=== PATIENT | female | born 1935 | race Caucasian/White ===

== ENCOUNTER → 2017-02-06 | Outpatient (REF) | payer MEDICARE ==
[~2017-02-06] MED LIST: ALBU17IN INH; AMLO10TA2 PO; AMLO5TAB2 PO; AMPI250C59 PO; ASPI1TAB PO; BREO1INH INH; CARV12.5 PO; DRIS50002 PO; FERR325T PO; LIPI20TA PO; LOSA100T PO; MELA5TAB14 PO; METH1CAP3 PO; MIRT45TA PO; OMEP40CA2 PO; PLAV75TA38 PO; SENO8.6T10 PO
[2017-02-06 13:01] LABS: ALBUMIN 4.3 GM/DL (3.2-5.2); ALBUMIN/GLOBULIN RATIO 1.59 (1.00-1.93); ALKALINE PHOSPHATASE 50 U/L (45-117); ALT/SGPT 22 U/L (12-78); ANION GAP 9 MEQ/L (8-16); AST/SGOT 17 U/L (15-37); BILIRUBIN,TOTAL 0.4 MG/DL (0.2-1.0); BLOOD UREA NITROGEN 20 MG/DL (7-18); CALCIUM LEVEL 10.1 MG/DL (8.8-10.2); CARBON DIOXIDE LEVEL 26 MEQ/L (21-32); CHLORIDE LEVEL 107 MEQ/L (98-107); CHOLESTEROL LEVEL 158 MG/DL (<200); CREATININE FOR GFR 0.93 MG/DL (0.55-1.02); GLOMERULAR FILTRATION RATE > 60.0 (>32); GLUCOSE, FASTING 84 MG/DL (83-110); MAGNESIUM LEVEL 1.9 MG/DL (1.8-2.4); POTASSIUM SERUM 3.8 MEQ/L (3.5-5.1); SODIUM LEVEL 142 MEQ/L (136-145); TRIGLYCERIDES LEVEL 147 MG/DL (<150)
[2017-02-06 13:05] LABS: MEAN CORPUSCULAR HEMOGLOBIN 33.6 pg (27.0-33.0); MEAN CORPUSCULAR VOLUME 102.1 fl (80.0-96.0); WHITE BLOOD COUNT 5.6 K/mm3 (4.0-10.0)
== END ==
LOC: M SFHCPLAZ 09:11
PROVIDERS: ATTEND Internal Medicine
DX: I10 Essential (primary) hypertension (principal); E78.00 Pure hypercholesterolemia, unspecified; Z86.2 Personal history of diseases of the blood and blood-forming organs and certain disorders involving the immune mechanism

== ENCOUNTER → 2017-06-17 | Outpatient (REF) | payer MEDICARE ==
[~2017-06-17] MED LIST changes: +FERR1TAB8 PO; -FERR325T PO; -LOSA100T PO; +LOSA100T8 PO; -MELA5TAB14 PO; +MELA5TAB17 PO; +PLAV1TAB2 PO; -PLAV75TA38 PO
[2017-06-17 14:06] LABS: MEAN CORPUSCULAR HEMOGLOBIN 32.8 pg (27.0-33.0); MEAN CORPUSCULAR HGB CONC 31.5 g/dl (32.0-36.5); MEAN CORPUSCULAR VOLUME 104.1 fl (80.0-96.0); RED CELL DISTRIBUTION WIDTH 12.4 % (11.5-14.5); WHITE BLOOD COUNT 5.5 10^3/uL (4.0-10.0)
[2017-06-17 14:23] LABS: VITAMIN B12 LEVEL 438 PG/ML
[2017-06-17 14:29] LABS: ALBUMIN 4.2 GM/DL (3.2-5.2); ALBUMIN/GLOBULIN RATIO 1.75 (1.00-1.93); ALKALINE PHOSPHATASE 51 U/L (45-117); ALT/SGPT 21 U/L (12-78); ANION GAP 9 MEQ/L (8-16); AST/SGOT 18 U/L (15-37); BILIRUBIN,TOTAL 0.5 MG/DL (0.2-1.0); BLOOD UREA NITROGEN 18 MG/DL (7-18); CALCIUM LEVEL 9.7 MG/DL (8.8-10.2); CARBON DIOXIDE LEVEL 28 MEQ/L (21-32); CHLORIDE LEVEL 106 MEQ/L (98-107); CREATININE FOR GFR 0.77 MG/DL (0.55-1.02); GLOMERULAR FILTRATION RATE > 60.0 (>32); GLUCOSE, FASTING 82 MG/DL (83-110); MAGNESIUM LEVEL 1.6 MG/DL (1.8-2.4); POTASSIUM SERUM 3.7 MEQ/L (3.5-5.1); SODIUM LEVEL 143 MEQ/L (136-145); TOTAL PROTEIN 6.6 GM/DL (6.4-8.2); URIC ACID 5.6 MG/DL (2.6-6.0)
== END ==
LOC: M SFHCPLAZ 09:08
PROVIDERS: ATTEND Internal Medicine
DX: I10 Essential (primary) hypertension (principal); E55.9 Vitamin D deficiency, unspecified; M10.9 Gout, unspecified; Z86.2 Personal history of diseases of the blood and blood-forming organs and certain disorders involving the immune mechanism

== ENCOUNTER → 2017-10-08 | Outpatient (REF) | payer MEDICARE ==
[2017-10-08 12:03] LABS: HEMATOCRIT 37.7 % (36.0-47.0); HEMOGLOBIN 12.2 g/dl (12.0-16.0); MEAN CORPUSCULAR HEMOGLOBIN 31.9 pg (27.0-33.0); MEAN CORPUSCULAR HGB CONC 32.4 g/dl (32.0-36.5); MEAN CORPUSCULAR VOLUME 98.7 fl (80.0-96.0); PLATELET COUNT, AUTOMATED 152 10^3/uL (150-450); RED BLOOD COUNT 3.82 10^6/uL (4.00-5.40); WHITE BLOOD COUNT 5.9 10^3/uL (4.0-10.0)
[2017-10-08 12:25] LABS: ALBUMIN 4.3 GM/DL (3.2-5.2); ALBUMIN/GLOBULIN RATIO 1.72 (1.00-1.93); ALKALINE PHOSPHATASE 61 U/L (45-117); ALT/SGPT 15 U/L (12-78); ANION GAP 8 MEQ/L (8-16); AST/SGOT 15 U/L (7-37); BILIRUBIN,TOTAL 0.6 MG/DL (0.2-1.0); BLOOD UREA NITROGEN 32 MG/DL (7-18); CALCIUM LEVEL 9.6 MG/DL (8.8-10.2); CARBON DIOXIDE LEVEL 29 MEQ/L (21-32); CHLORIDE LEVEL 107 MEQ/L (98-107); CREATININE FOR GFR 1.24 MG/DL (0.55-1.30); GLOMERULAR FILTRATION RATE 44.2 (>32); GLUCOSE, FASTING 85 MG/DL (70-100); MAGNESIUM LEVEL 1.9 MG/DL (1.8-2.4); POTASSIUM SERUM 3.4 MEQ/L (3.5-5.1); SODIUM LEVEL 144 MEQ/L (136-145); TOTAL PROTEIN 6.8 GM/DL (6.4-8.2)
== END ==
LOC: M SFHCPLAZ 07:27
DX: D75.89 Other specified diseases of blood and blood-forming organs (principal); Z86.2 Personal history of diseases of the blood and blood-forming organs and certain disorders involving the immune mechanism; I10 Essential (primary) hypertension
CPT/HCPCS: 83735

== ENCOUNTER → 2018-03-10 | Outpatient (REF) | payer MEDICARE ==
[2018-03-10 12:36] LABS: HEMATOCRIT 34.8 % (36.0-47.0); HEMOGLOBIN 11.4 g/dl (12.0-15.5); MEAN CORPUSCULAR HEMOGLOBIN 32.9 pg (27.0-33.0); MEAN CORPUSCULAR HGB CONC 32.8 g/dl (32.0-36.5); MEAN CORPUSCULAR VOLUME 100.3 fl (80.0-96.0); PLATELET COUNT, AUTOMATED 173 10^3/uL (150-450); RED BLOOD COUNT 3.47 10^6/uL (4.00-5.40); WHITE BLOOD COUNT 6.8 10^3/uL (4.0-10.0)
[2018-03-10 12:54] LABS: TOTAL 25(OH) VITAMIN D 48.9 NG/ML (30.0-100.0)
[2018-03-10 13:07] LABS: ALBUMIN 3.9 GM/DL (3.2-5.2); ALBUMIN/GLOBULIN RATIO 1.39 (1.00-1.93); ALKALINE PHOSPHATASE 51 U/L (45-117); ALT/SGPT 15 U/L (12-78); ANION GAP 8 MEQ/L (8-16); AST/SGOT 16 U/L (7-37); BILIRUBIN,TOTAL 0.5 MG/DL (0.2-1.0); BLOOD UREA NITROGEN 24 MG/DL (7-18); CALCIUM LEVEL 9.8 MG/DL (8.8-10.2); CARBON DIOXIDE LEVEL 31 MEQ/L (21-32); CHLORIDE LEVEL 106 MEQ/L (98-107); CHOLESTEROL LEVEL 182 MG/DL (<200); CHOLESTEROL RISK RATIO 4.232 (<5); CREATININE FOR GFR 0.93 MG/DL (0.55-1.30); GLOMERULAR FILTRATION RATE > 60.0 (>32); GLUCOSE, FASTING 86 MG/DL (70-100); HDL CHOLESTEROL 43 MG/DL (>40); LDL CHOLESTEROL 98.6 MG/DL (<100); NON-HDL-C 139 MG/DL; POTASSIUM SERUM 3.9 MEQ/L (3.5-5.1); SODIUM LEVEL 145 MEQ/L (136-145); TOTAL PROTEIN 6.7 GM/DL (6.4-8.2); TRIGLYCERIDES LEVEL 202 MG/DL (<150)
== END ==
LOC: M SFHCPLAZ 08:00
DX: I10 Essential (primary) hypertension (principal); Z86.2 Personal history of diseases of the blood and blood-forming organs and certain disorders involving the immune mechanism; E78.00 Pure hypercholesterolemia, unspecified; E55.9 Vitamin D deficiency, unspecified
CPT/HCPCS: 83735

== ENCOUNTER 2018-03-19 18:40 | Emergency (ER) | payer MEDICARE ==
[2018-03-19] MEDS: NS 500 ML IV ×2 (20:14→21:15)
[2018-03-19 20:22] LABS: BASO % 0.4 % (0.0-1.0); EOS # 0.1 10^3/uL (0.0-0.50); EOS % 0.8 % (0.0-3.0); HEMATOCRIT 34.9 % (36.0-47.0); HEMOGLOBIN 11.5 g/dl (12.0-15.5); IMMATURE GRANULOCYTE % 0.2 % (0-3.0); LYMPH # 1.1 10^3/uL (1.5-4.5); LYMPH % 13.3 % (24.0-44.0); MEAN CORPUSCULAR HEMOGLOBIN 32.4 pg (27.0-33.0); MEAN CORPUSCULAR VOLUME 98.3 fl (80.0-96.0); MONO # 0.5 10^3/uL (0.0-0.8); MONO % 6.4 % (0.0-5.0); NEUTROPHILS # 6.5 10^3/uL (1.8-7.7); NEUTROPHILS % 78.9 % (36.0-66.0); PLATELET COUNT, AUTOMATED 167 10^3/uL (150-450); RED BLOOD COUNT 3.55 10^6/uL (4.00-5.40); WHITE BLOOD COUNT 8.3 10^3/uL (4.0-10.0)
[2018-03-19 20:27] LABS: ANION GAP 10 MEQ/L (8-16); BLOOD UREA NITROGEN 40 MG/DL (7-18); CALCIUM LEVEL 10.3 MG/DL (8.8-10.2); CARBON DIOXIDE LEVEL 26 MEQ/L (21-32); CHLORIDE LEVEL 106 MEQ/L (98-107); CPK CREATINE PHOSPHOKINASE 86 U/L (26-192); CREATININE FOR GFR 1.61 MG/DL (0.55-1.30); GLOMERULAR FILTRATION RATE 32.7 (>32); GLUCOSE, FASTING 106 MG/DL (70-100); POTASSIUM SERUM 4.5 MEQ/L (3.5-5.1); SODIUM LEVEL 142 MEQ/L (136-145); TROPONIN I < 0.02 NG/ML (< 0.10)
[2018-03-19 20:28] LABS: MB/CK RELATIVE INDEX 1.16 (< OR =4)
[2018-03-19] MEDS: ACETAMINOPHEN 325 MG TAB PO (21:43)
== END 2018-03-19 22:17 | disposition home or self-care (01) ==
LOC: M ED 18:40
DX: S82.831A Other fracture of upper and lower end of right fibula, initial encounter for closed fracture (principal); S93.401A Sprain of unspecified ligament of right ankle, initial encounter; W19.XXXA Unspecified fall, initial encounter; Y92.9 Unspecified place or not applicable; Y93.9 Activity, unspecified; Y99.0 Civilian activity done for income or pay; E86.0 Dehydration; R94.31 Abnormal electrocardiogram [ECG] [EKG]; I10 Essential (primary) hypertension; K21.9 Gastro-esophageal reflux disease without esophagitis; Z79.82 Long term (current) use of aspirin; Z79.899 Other long term (current) drug therapy; Z88.8 Allergy status to other drugs, medicaments and biological substances; Z88.6 Allergy status to analgesic agent
CPT/HCPCS: 73610

== ENCOUNTER → 2018-09-10 | Outpatient (REF) | payer MEDICARE ==
[~2018-09-10] MED LIST changes: -AMLO10TA2 PO; +AMLO10TA5 PO; -AMLO5TAB2 PO; +AMLO5TAB6 PO; -DRIS50002 PO; +DRIS50003 PO; -MIRT45TA PO; +MIRT45TA4 PO
[2018-09-10 12:36] LABS: HEMATOCRIT 31.8 % (36.0-47.0); HEMOGLOBIN 10.3 g/dl (12.0-15.5); MEAN CORPUSCULAR HEMOGLOBIN 30.6 pg (27.0-33.0); MEAN CORPUSCULAR HGB CONC 32.4 g/dl (32.0-36.5); MEAN CORPUSCULAR VOLUME 94.4 fl (80.0-96.0); PLATELET COUNT, AUTOMATED 175 10^3/uL (150-450); RED BLOOD COUNT 3.37 10^6/uL (4.00-5.40)
[2018-09-10 12:45] LABS: ALBUMIN 3.6 GM/DL (3.2-5.2); BILIRUBIN,TOTAL 0.4 MG/DL (0.2-1.0); CALCIUM LEVEL 9.1 MG/DL (8.8-10.2); CREATININE FOR GFR 1.24 MG/DL (0.55-1.30); GLOMERULAR FILTRATION RATE 44.1 (>32); MAGNESIUM LEVEL 2.1 MG/DL (1.8-2.4); POTASSIUM SERUM 3.4 MEQ/L (3.5-5.1); TOTAL PROTEIN 6.2 GM/DL (6.4-8.2)
== END ==
LOC: M SFHCPLAZ 08:13
PROVIDERS: ATTEND Internal Medicine
DX: I10 Essential (primary) hypertension (principal); Z86.2 Personal history of diseases of the blood and blood-forming organs and certain disorders involving the immune mechanism

== ENCOUNTER → 2019-01-18 | Outpatient (REF) | payer MEDICARE ==
[~2019-01-18] MED LIST changes: -ASPI1TAB PO; +ASPI81TA26 PO
[2019-01-18 17:22] LABS: HEMOGLOBIN 11.2 g/dl (12.0-15.5); MEAN CORPUSCULAR HEMOGLOBIN 29.7 pg (27.0-33.0); MEAN CORPUSCULAR HGB CONC 31.1 g/dl (32.0-36.5); MEAN CORPUSCULAR VOLUME 95.5 fl (80.0-96.0); PLATELET COUNT, AUTOMATED 190 10^3/uL (150-450); RED BLOOD COUNT 3.77 10^6/uL (4.00-5.40); WHITE BLOOD COUNT 5.7 10^3/uL (4.0-10.0)
[2019-01-18 17:47] LABS: ALBUMIN 3.9 GM/DL (3.2-5.2); ALT/SGPT 13 U/L (12-78); BILIRUBIN,TOTAL 0.4 MG/DL (0.2-1.0); BLOOD UREA NITROGEN 24 MG/DL (7-18); CALCIUM LEVEL 9.5 MG/DL (8.8-10.2); CARBON DIOXIDE LEVEL 30 MEQ/L (21-32); CHLORIDE LEVEL 104 MEQ/L (98-107); CHOLESTEROL LEVEL 158 MG/DL (<200); CREATININE FOR GFR 0.83 MG/DL (0.55-1.30); GLOMERULAR FILTRATION RATE > 60.0 (>32); GLUCOSE, FASTING 88 MG/DL (70-100); HDL CHOLESTEROL 50 MG/DL (>40); LDL CHOLESTEROL 87 MG/DL (<100); MAGNESIUM LEVEL 1.9 MG/DL (1.8-2.4); NON-HDL-C 108 MG/DL; POTASSIUM SERUM 3.1 MEQ/L (3.5-5.1); SODIUM LEVEL 144 MEQ/L (136-145); TOTAL PROTEIN 6.7 GM/DL (6.4-8.2); TRIGLYCERIDES LEVEL 103 MG/DL (<150); URIC ACID 5.5 MG/DL (2.6-6.0)
== END ==
LOC: M SFHCPLAZ 15:47
PROVIDERS: ATTEND Internal Medicine
DX: I10 Essential (primary) hypertension (principal); Z86.2 Personal history of diseases of the blood and blood-forming organs and certain disorders involving the immune mechanism; E78.00 Pure hypercholesterolemia, unspecified; M10.9 Gout, unspecified
CPT/HCPCS: 36415; 80053; 80061; 83735; 84550; 85027; G0463

== ENCOUNTER → 2019-08-12 | Outpatient (REF) | payer MEDICARE ==
[~2019-08-12] MED LIST changes: -MELA5TAB17 PO; +MELA5TAB31 PO; -OMEP40CA2 PO; +OMEP40CA97 PO
[2019-08-12 12:21] LABS: HEMATOCRIT 32.1 % (36.0-47.0); HEMOGLOBIN 9.9 g/dl (12.0-15.5); MEAN CORPUSCULAR HEMOGLOBIN 28.9 pg (27.0-33.0); MEAN CORPUSCULAR HGB CONC 30.8 g/dl (32.0-36.5); MEAN CORPUSCULAR VOLUME 93.9 fl (80.0-96.0); PLATELET COUNT, AUTOMATED 206 10^3/uL (150-450); RED BLOOD COUNT 3.42 10^6/uL (4.00-5.40); WHITE BLOOD COUNT 4.6 10^3/uL (4.0-10.0)
[2019-08-12 12:48] LABS: ALBUMIN 3.6 GM/DL (3.2-5.2); ALT/SGPT 12 U/L (12-78); BILIRUBIN,TOTAL 0.5 MG/DL (0.2-1.0); BLOOD UREA NITROGEN 23 MG/DL (7-18); CALCIUM LEVEL 9.8 MG/DL (8.8-10.2); CARBON DIOXIDE LEVEL 27 MEQ/L (21-32); CHLORIDE LEVEL 107 MEQ/L (98-107); CREATININE FOR GFR 0.93 MG/DL (0.55-1.30); FOLATE 9.5 NG/ML; GLOMERULAR FILTRATION RATE > 60.0 (>32); GLUCOSE, FASTING 90 MG/DL (70-100); MAGNESIUM LEVEL 2.1 MG/DL (1.8-2.4); POTASSIUM SERUM 3.9 MEQ/L (3.5-5.1); SODIUM LEVEL 142 MEQ/L (136-145); TOTAL 25(OH) VITAMIN D 38.5 NG/ML (30.0-100.0); TOTAL PROTEIN 6.5 GM/DL (6.4-8.2); VITAMIN B12 LEVEL > 2000 PG/ML
== END ==
LOC: M SFHCPLAZ 08:31
PROVIDERS: ATTEND Internal Medicine
DX: Z86.2 Personal history of diseases of the blood and blood-forming organs and certain disorders involving the immune mechanism (principal); F09 Unspecified mental disorder due to known physiological condition; I10 Essential (primary) hypertension; E55.9 Vitamin D deficiency, unspecified; Z79.899 Other long term (current) drug therapy

== ENCOUNTER → 2019-11-18 | Outpatient (REF) | payer MEDICARE ==
[2019-11-18 17:04] LABS: HEMATOCRIT 33.3 % (36.0-47.0); HEMOGLOBIN 10.2 g/dl (12.0-15.5); MEAN CORPUSCULAR HEMOGLOBIN 29.2 pg (27.0-33.0); MEAN CORPUSCULAR HGB CONC 30.6 g/dl (32.0-36.5); MEAN CORPUSCULAR VOLUME 95.4 fl (80.0-96.0); PLATELET COUNT, AUTOMATED 205 10^3/uL (150-450); RED BLOOD COUNT 3.49 10^6/uL (4.00-5.40)
[2019-11-18 17:09] LABS: ALBUMIN 3.9 GM/DL (3.2-5.2); BILIRUBIN,TOTAL 0.5 MG/DL (0.2-1.0); CALCIUM LEVEL 9.7 MG/DL (8.8-10.2); CREATININE FOR GFR 0.96 MG/DL (0.55-1.30); GLOMERULAR FILTRATION RATE 59.1 (>32); POTASSIUM SERUM 4.1 MEQ/L (3.5-5.1); TOTAL PROTEIN 6.9 GM/DL (6.4-8.2)
== END ==
LOC: M SFHCPLAZ 13:15
PROVIDERS: ATTEND Internal Medicine
DX: Z86.2 Personal history of diseases of the blood and blood-forming organs and certain disorders involving the immune mechanism (principal); I10 Essential (primary) hypertension

== ENCOUNTER 2020-03-14 16:31 | Emergency (ER) | payer MEDICARE ==
[~2020-03-14] VITALS: Ht 157.5 cm; Wt 50.7 kg
--- NOTE | 2020-03-14 17:13 | REPVR ---
PROCEDURE INFORMATION: Exam: CT Maxillofacial Without Contrast Exam date and time: 03/14/2020 4:49 PM Age: 84 years old Clinical indication: Injury or trauma; Fall; Initial encounter; Blunt trauma (contusions or hematomas); Nose TECHNIQUE: Imaging protocol: Computed tomography images of the face without contrast. Radiation optimization: All CT scans at this facility use at least one of these dose optimization techniques: automated exposure control; mA and/or kV adjustment per patient size (includes targeted exams where dose is matched to clinical indication); or iterative reconstruction. COMPARISON: No relevant prior studies available. FINDINGS: Orbits: Orbits are normal. Globes are unremarkable. Bones/joints: The visualized cervical spine demonstrates moderate degenerative changes. Sinuses: Mild inflammatory changes in the ethmoid sinuses, left greater than right. Left maxillary sinus retention cyst. Nasal cavity: Emmy bullosa on the right. Deviated nasal septum to the left with the lateral nasal spur. Soft tissues: Left paranasal and left medial pre maxillary soft tissue swelling with left nasal fractures. IMPRESSION: 1. Left paranasal/pre maxillary soft tissue swelling and left nasal fractures. 2. Inflammatory changes left maxillary sinus and ethmoid sinuses. Electronically signed by: Kael Love On 03/14/2020 17:13:00 PM
--- NOTE | 2020-03-14 17:16 | REPVR ---
PROCEDURE INFORMATION: Exam: CT Head Without Contrast Exam date and time: 03/14/2020 4:45 PM Age: 84 years old Clinical indication: Pain; Headache; Additional info: Fall on blood thinners TECHNIQUE: Imaging protocol: Computed tomography of the head without contrast. Radiation optimization: All CT scans at this facility use at least one of these dose optimization techniques: automated exposure control; mA and/or kV adjustment per patient size (includes targeted exams where dose is matched to clinical indication); or iterative reconstruction. COMPARISON: CT Head without contrast 08/04/2016 6:49 AM FINDINGS: Brain: There is moderate age related parenchymal volume loss. 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 Ventricles: The degree of ventricular dilatation is normal for age and/or degree of atrophy present. Bones/joints: Left paranasal and pre maxillary swelling with nasal fractures. Sinuses: Inflammatory changes left maxillary sinus. Mastoid air cells: Visualized mastoid air cells are well aerated. Vasculature: Atherosclerotic calcifications are demonstrated in the intracranial carotid arteries and distal vertebral arteries bilaterally. Soft tissues: Unremarkable. IMPRESSION: 1. There is moderate age related parenchymal volume loss. 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 2. The degree of ventricular dilatation is normal for age and/or degree of atrophy present. 3. No acute intracranial abnormalities. Electronically signed by: Kael Love On 03/14/2020 17:16:09 PM
--- NOTE | 2020-03-14 17:22 | REPVR ---
PROCEDURE INFORMATION: Exam: CT Cervical Spine Without Contrast Exam date and time: 03/14/2020 4:49 PM Age: 84 years old Clinical indication: Injury or trauma; Fall; Initial encounter; Blunt trauma TECHNIQUE: Imaging protocol: Computed tomography images of the cervical spine without contrast. Radiation optimization: All CT scans at this facility use at least one of these dose optimization techniques: automated exposure control; mA and/or kV adjustment per patient size (includes targeted exams where dose is matched to clinical indication); or iterative reconstruction. COMPARISON: US Duplex,carotid (complete) 08/03/2016 12:04 PM FINDINGS: Vertebrae: Reversal of normal cervical lordosis which may be positional or indicate muscular spasm. Mild anterolisthesis of C2 on C3 and C7 on T1 likely related to chronic degenerative change although clinical correlation to exclude acute ligamentous injury suggested. Multilevel facet joint arthropathy demonstrated throughout the cervical spine. Discs/Spinal canal/Neural foramina: There are degenerative changes demonstrated in the atlantoaxial joint at C1-C2 with osteophytes and joint space narrowing. The transverse ligament is a hypertrophied. Disc space narrowing at C3-C4 through C6-C7 with intervertebral osteophytes. Severe foraminal stenosis on the right and moderate foraminal stenosis on the left at C3, bilateral severe foraminal stenosis at C4, severe foraminal stenosis on the left and moderate to severe foraminal stenosis on the right at C5, bilateral moderate foraminal stenosis at C6 secondary to uncinate joint hypertrophic changes. Disc osteophyte complexes demonstrated from C3-C4 through C6-C7 result in effacement of the ventral subarachnoid space to varying degrees most pronounced at C4-C5 with there is mild cord impingement. Small posterior disc protrusion at C2-C3 without cord impingement. Soft tissues: See "Discs/Spinal canal/Neural foramina" finding. Lungs: Lung apices are normal. IMPRESSION: 1. Reversal of normal cervical lordosis which may be positional or indicate muscular spasm. 2. Mild anterolisthesis of C2 on C3 and C7 on T1 likely related to chronic degenerative change although clinical correlation to exclude acute ligamentous injury suggested. 3. No fracture demonstrated. 4. Multilevel disc osteophyte complexes with mild cord impingement at C4-C5. 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 Electronically signed by: Kael Love On 03/14/2020 17:21:43 PM
[2020-03-14] MEDS ORDERED: LIDOCAINE 1% MDV 20ML VIAL SC ONE (18:00)
[2020-03-14] MEDS ORDERED: AUGMENTIN 875 MG TAB PO ONE (18:00)
[2020-03-14] MEDS ORDERED: AUGM875T28 PO (18:44)
[2020-03-14 19:07] VITALS: BP 158/91
--- NOTE | 2020-03-16 15:28 | ED PDOC ---
Post-Departure Follow-Up dr andre faxed formal report of ct cc spine for fu Edgar Michael MD Mar 16, 2020 15:28
== END 2020-03-14 19:26 | disposition home or self-care (01) ==
LOC: M ED 16:31
DX: S02.2XXA Fracture of nasal bones, initial encounter for closed fracture (principal); S01.21XA Laceration without foreign body of nose, initial encounter; W01.10XA Fall on same level from slipping, tripping and stumbling with subsequent striking against unspecified object, initial encounter; Y92.099 Unspecified place in other non-institutional residence as the place of occurrence of the external cause; Y93.9 Activity, unspecified; Y99.9 Unspecified external cause status; Z91.81 History of falling; R93.7 Abnormal findings on diagnostic imaging of other parts of musculoskeletal system; F32.9 Major depressive disorder, single episode, unspecified; I10 Essential (primary) hypertension; J45.909 Unspecified asthma, uncomplicated; R91.1 Solitary pulmonary nodule; Z95.5 Presence of coronary angioplasty implant and graft; I25.10 Atherosclerotic heart disease of native coronary artery without angina pectoris; K21.9 Gastro-esophageal reflux disease without esophagitis; Z79.82 Long term (current) use of aspirin; Z79.899 Other long term (current) drug therapy; Z88.1 Allergy status to other antibiotic agents; Z88.8 Allergy status to other drugs, medicaments and biological substances

== ENCOUNTER → 2020-04-20 | Outpatient (REF) | payer MEDICARE ==
[~2020-04-20] MED LIST changes: -AMLO10TA5 PO; +AMLO1TAB24 PO; +AMLO1TAB25 PO; -AMLO5TAB6 PO; +AUGM875T28 PO; -MELA5TAB31 PO; +MELA5TAB36 PO
[2020-06-07 09:25] LABS: ALBUMIN 3.8 GM/DL (3.2-5.2); ALT/SGPT 14 U/L (12-78); BILIRUBIN,TOTAL 0.5 MG/DL (0.2-1.0); BLOOD UREA NITROGEN 23 MG/DL (7-18); CALCIUM LEVEL 9.3 MG/DL (8.8-10.2); CARBON DIOXIDE LEVEL 32 MEQ/L (21-32); CHLORIDE LEVEL 108 MEQ/L (98-107); CREATININE FOR GFR 0.85 MG/DL (0.55-1.30); GLOMERULAR FILTRATION RATE > 60.0 (>32); GLUCOSE, FASTING 84 MG/DL (70-100); POTASSIUM SERUM 3.4 MEQ/L (3.5-5.1); SODIUM LEVEL 143 MEQ/L (136-145); TOTAL PROTEIN 6.4 GM/DL (6.4-8.2); VITAMIN B12 LEVEL 1277 PG/ML (247-911)
[2020-06-11 10:50] LABS: BASO % 0.6 % (0.0-1.0); EOS # 0.1 10^3/uL (0.0-0.5); EOS % 1.5 % (0.0-3.0); HEMOGLOBIN 11.3 g/dl (12.0-15.5); LYMPH # 1.2 10^3/uL (1.5-5.0); LYMPH % 18.3 % (24.0-44.0); MEAN CORPUSCULAR HEMOGLOBIN 30.2 pg (27.0-33.0); MEAN CORPUSCULAR HGB CONC 31.4 g/dl (32.0-36.5); MEAN CORPUSCULAR VOLUME 96.3 fl (80.0-96.0); MONO # 0.5 10^3/uL (0.0-0.8); NEUTROPHILS # 4.7 10^3/uL (1.5-8.5); NEUTROPHILS % 71.3 % (36.0-66.0); PLATELET COUNT, AUTOMATED 168 10^3/uL (150-450); RED BLOOD COUNT 3.74 10^6/uL (4.00-5.40); WHITE BLOOD COUNT 6.5 10^3/uL (4.0-10.0)
== END ==
LOC: M SFHCPLAZ 15:28
PROVIDERS: ATTEND Internal Medicine
DX: F09 Unspecified mental disorder due to known physiological condition (principal); E78.00 Pure hypercholesterolemia, unspecified; I10 Essential (primary) hypertension; R63.4 Abnormal weight loss
CPT/HCPCS: 36415; 80053; 82607; 83735; 84443; 85025; G0463

== ENCOUNTER → 2020-10-23 | Outpatient (REF) | payer MEDICARE ==
[2020-10-23 14:34] LABS: BASO % 0.8 % (0.0-1.0); EOS # 0.1 10^3/uL (0.0-0.5); EOS % 1.3 % (0.0-3.0); HEMATOCRIT 36.1 % (36.0-47.0); HEMOGLOBIN 11.2 g/dl (12.0-15.5); LYMPH # 0.9 10^3/uL (1.5-5.0); MEAN CORPUSCULAR HEMOGLOBIN 29.6 pg (27.0-33.0); MEAN CORPUSCULAR VOLUME 95.5 fl (80.0-96.0); MONO # 0.5 10^3/uL (0.0-0.8); NEUTROPHILS # 3.7 10^3/uL (1.5-8.5); NEUTROPHILS % 71.7 % (36.0-66.0); PLATELET COUNT, AUTOMATED 195 10^3/uL (150-450); RED BLOOD COUNT 3.78 10^6/uL (4.00-5.40); WHITE BLOOD COUNT 5.2 10^3/uL (4.0-10.0)
[2020-10-23 14:45] LABS: ALBUMIN 3.9 GM/DL (3.2-5.2); ALT/SGPT 14 U/L (12-78); BILIRUBIN,TOTAL 0.4 MG/DL (0.2-1.0); BLOOD UREA NITROGEN 24 MG/DL (7-18); CALCIUM LEVEL 9.7 MG/DL (8.8-10.2); CARBON DIOXIDE LEVEL 29 MEQ/L (21-32); CHLORIDE LEVEL 108 MEQ/L (98-107); CHOLESTEROL LEVEL 163 MG/DL (<200); CHOLESTEROL RISK RATIO 2.762 (<5); CREATININE FOR GFR 0.87 MG/DL (0.55-1.30); GLOMERULAR FILTRATION RATE > 60.0 (>32); GLUCOSE, FASTING 87 MG/DL (70-100); HDL CHOLESTEROL 59 MG/DL (>40); LDL CHOLESTEROL 85 MG/DL (<100); NON-HDL-C 104 MG/DL; POTASSIUM SERUM 4.2 MEQ/L (3.5-5.1); SODIUM LEVEL 143 MEQ/L (136-145); TOTAL PROTEIN 6.6 GM/DL (6.4-8.2); TRIGLYCERIDES LEVEL 95 MG/DL (<150)
== END ==
LOC: M PLALAB 10:14
PROVIDERS: ATTEND Internal Medicine
DX: E78.00 Pure hypercholesterolemia, unspecified (principal); I10 Essential (primary) hypertension; Z86.2 Personal history of diseases of the blood and blood-forming organs and certain disorders involving the immune mechanism

== ENCOUNTER → 2021-04-23 | Outpatient (CLI) | payer MEDICARE ==
[~2021-04-23] MED LIST changes: +OMEP40CA4 PO; -OMEP40CA97 PO
[2021-04-23 14:03] LABS: BASO % 0.6 % (0.0-1.0); EOS # 0.1 10^3/uL (0.0-0.5); EOS % 2.8 % (0.0-3.0); HEMATOCRIT 28.3 % (36.0-47.0); HEMOGLOBIN 8.4 g/dl (12.0-15.5); LYMPH # 0.9 10^3/uL (1.5-5.0); LYMPH % 20.3 % (24.0-44.0); MEAN CORPUSCULAR HEMOGLOBIN 27.2 pg (27.0-33.0); MEAN CORPUSCULAR HGB CONC 29.7 g/dl (32.0-36.5); MEAN CORPUSCULAR VOLUME 91.6 fl (80.0-96.0); MONO # 0.5 10^3/uL (0.0-0.8); MONO % 9.7 % (2.0-8.0); NEUTROPHILS # 3.1 10^3/uL (1.5-8.5); NEUTROPHILS % 66.4 % (36.0-66.0); PLATELET COUNT, AUTOMATED 224 10^3/uL (150-450); RED BLOOD COUNT 3.09 10^6/uL (4.00-5.40); WHITE BLOOD COUNT 4.6 10^3/uL (4.0-10.0)
[2021-04-23 14:37] LABS: ALBUMIN 3.7 GM/DL (3.2-5.2); ALT/SGPT 15 U/L (12-78); BILIRUBIN,TOTAL 0.4 MG/DL (0.2-1.0); BLOOD UREA NITROGEN 22 MG/DL (7-18); CARBON DIOXIDE LEVEL 30 MEQ/L (21-32); CHLORIDE LEVEL 108 MEQ/L (98-107); CREATININE FOR GFR 0.82 MG/DL (0.55-1.30); GLOMERULAR FILTRATION RATE > 60.0 (>32); GLUCOSE, FASTING 79 MG/DL (70-100); POTASSIUM SERUM 3.3 MEQ/L (3.5-5.1); SODIUM LEVEL 145 MEQ/L (136-145); TOTAL PROTEIN 6.2 GM/DL (6.4-8.2)
== END ==
LOC: M PLALAB 11:24
PROVIDERS: ATTEND Internal Medicine
DX: I10 Essential (primary) hypertension (principal); Z86.2 Personal history of diseases of the blood and blood-forming organs and certain disorders involving the immune mechanism

== ENCOUNTER 2021-08-12 17:42 | Inpatient (IN) | payer MEDICARE ==
[~2021-08-12] VITALS: Ht 152.4 cm; Wt 41.3 kg
--- OUTSIDE RECORDS SUMMARY | 2021-08-12 17:48 | CCD ---
Author Author [facility] Organization [facility] Address Unknown Phone Unavailable Care Team Providers Care Shoe Planner Name Role Phone Paresh Cervantes Unavailable PROBLEMS Type Condition ICD9-CM Code PQU22-MP Code Onset Dates Condition S tatus W/U Status Risk SNOMED Code Notes Problem Glaucoma H40.9 Active confirmed 69101489 On Travatan and Alphagan I believe(?). She had OS glaucoma surgery (?shunt) 02/09/2014. Problem Gout M10.9 Active confirmed 75960829 Uric acid level reasonably controlled without medication on diet alone, as of January 2019. She has not had a flare. Problem Allergic rhinitis J30.9 Active confirmed [id number] Problem Osteoporosis M81.0 Active confirmed 1115225 6 Osteoporosis, confirmed by bone density study in 2003. Last DEXA 2012 revealed osteopenia of the hips. 25 hydroxy Vitamin D level low in 11/13. Repeated on replacement and 47 in 03/2015, 77 in June 2017, 49 in March 2018, 39 in 08/2019. Bisphosphonate stopped in 2009, after more than 5 years of therapy. She does not fall and given her comorbidities I am reluctant to restart medication. Problem Lung nodule R91.1 Active confirmed 17648700 5 She had a chest x-ray to further evaluate her cough in May 2012 and she had a lung lesion on plain films. CT chest and PET scans in 2011 were not revealing and were followed by a internet architect. Apparently the lesion has resolved as of September 2012; had another CT of her chest in the ED in 02/2013. I do not think further testing is justified at this point. Problem Mitral regurgitation I34.0 Active confirmed 24224454 She had moderately severe MR by echocardiogram in 04/2013, and as part of her syncope workup in July 2016 another echocardiogram was done which revealed moderately severe mitral regurgitation, normal left ventricular function and no evidence of LVH, moderate to severe left atrial dilation, moderate pulmonary hypertension. Due to her dementia repeat echocardiography will not be pursued. Problem Vitamin D deficiency E55.9 Active confirmed 34722814 Discovered 11/13. Last Vitamin D level was 77 in June 2017, on replacement therapy. She was on Drisdol every other week but as of October 2017 I changed that to just once a month. Most recent vitamin D level was 49 in March 2018, 39 in 08/2019. Problem Asthma J45.909 Active confirmed 680627667 No prior benefit from a course of prednisone and Dulera. She did not find Symbicort to be helpful in Fall 2010. She was wheezing in 01/2013 and was started back on Dulera, but this did not seem to help her. Breo inhaler was started in 03/2014 with benefit, although she is currently not using it. Problem Encounter for other screening for malignant neoplasm o f breast Z12.39 Active confirmed 552961697 We have repeate dlmichael discussed referral for mammogram and she declined. Her last was in May 2013. Problem Other shelter (current) drug therapy Z79.899 A ctive confirmed 855993527 Problem Peripheral artery disease I73.9 Active confirmed 998578808 No significant claudication symptoms. No rest pain. TIA testing last done in August 2011, and she had ABIs of 0.98 bilaterally. She has had previous surgery in 2002. She is on just Plavix; her stopped aspirin. 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 Problem Carotid artery disease I77.9 Active confirmed 035805828 Carotid artery disease was identified on ultrasound 2005. Follow-up is due as needed for symptoms according to USPSTF guidelines. She had a previous identified 1-15% right ICA stenosis. Asymptomatic. As part of her syncope workup in July 2016, she inexplicably had another carotid ultrasound (carotid artery disease does not cause syncope) at which time no hemodynamically significant stenoses were evident. Problem History of iron deficiency anemia Z86.2 Active confirmed 159049639 She has a history of iron deficiency in the past. She was off iron for quite some time. She required a transfusion in March 20032007. She has had full endoscopies and has been off iron for some time. Her last endoscopy in July 2008 revealed erosive esophagitis and ulceration, and a colonoscopy with barium enema was negative. Her hemoglobin dropped in February 2016 and I restarted iron then. Her CBC in February 2017 demonstrated some macrocytosis and I started B12 therapy. A B12 level in June 2017 was over 400. I reduced her iron to every other day then. Her CBC revealed a drop in her hemoglobin to 9.9 as of August 2019, stabilized at 11.2 in October 2020 but dropped to 8.4 in April 2021 because she is not taking iron as directed, 3 times a week. I have restarted iron therapy daily as of April 2021. Problem Coronary artery disease I25.10 Active confirmed 62820667 Had a stent placed for AYON and an abnormal stress test, in 04/2013 (right coronary artery). Has residual AYON, but this was controlled on Breo but she apparently no longer needs/uses this. On Plavix, statin, beta samreen, ARB and calcium channel samreen. Her stopped aspirin in 2020 I believe. Last LVEF 63% at stress test in 02/2013. Problem Gastroesophageal reflux K21.9 Active confirmed 024187116 On Omeprazole. Patient has controlled heartburn. Her last endoscopy July 2008 demonstrated erosive esophagitis. As of October 2017 I reduced her omeprazole to once daily. Problem Osteoarthritis M19.90 Active confirmed 51461 5006 Diffuse osteoarthritis, on Tylenol in the past. She had been on Vicodin occasionally in the past but this has not been needed. She had NSAID esophagitis in the past. Has generally controlled arthralgias, except for a Green's cyst of her right knee which she apparently has addressed with her orthopedist. She has had viscosupplementation of both knees periodically starting in Spring 2010 with benefit, but does not need that at present. ESR, anti-CCP were negative. Problem Cognitive dysfunction F09 Active confirmed 267404620 This is gradually progressive; she has Alzheimer's disease. Serologic evaluation has not been revealing in the past but I did start a B12 supplement as of February 2017. Serologic testing in June 2017 was negative and TSH and B12 level were normal in April 2020. She has a history of some behavioral issues including wandering, anorexia, hallucinations. Although there is a warning about the use of atypical psychotics in the elderly with cognitive dysfunction, I think she does need an antipsychotic to control the hallucinations and she was started on low-dose Seroquel in July 2018; because her hallucinations persisted, her Seroquel was increased to 25 mg twice daily in September 2018 and 50 mg at bedtime as of 05/2019, but her has since stopped that medication due to ineffectiveness. Antidepressant therapy would be Effexor and mirtazapine have not been useful in improving her cognitive function. I in the past have suggested that she attend adult daycare blank driller her some respite and have so referred her as of May 2019. Cost was prohibitive. Trazodone at bedtime was added as of 11/2019; she now sleeps well through the night. I have asked for home health assistance due to the fact that she needs some supervision medically that her cannot provide and because he requires some respite from 31/03 care for her. Problem Fatigue R53.83 Active confirmed 37035597 An ongoing complaint. Likely depression is playing a significant role. This is an ongoing issue. Problem Hypercholesterolemia E78.00 Active confirmed 74988768 She is on Lipitor (changed from simvastatin by her zumba instructor in 2012) with control of her lipids as of October 2020. Problem Hypertension I10 Active confirmed 3071805 3 On losartan, Norvasc and apparently no longer on carvedilol; carvedilol has not appeared on her home medication lists since 2019. She stopped Bumex which she took occasionally in the past. Her hydrochlorothiazide was discontinued and her losartan dose was reduced to 50 mg daily in September 2018 because of overcontrolled hypertension. Problem Depression F32.9 Active confirmed 615468179 She is no longer on venlafaxine ER 150 mg daily nor is she on mirtazapine 45 mg at present. Megace did not help her appetite. Ritalin according to her did not provide her any benefit and has been discontinued for good as of August 2019. I added trazodone as of 11/2019 due to insomnia issues. TSH was normal in April 2020. I added Megace as an appetite stimulant due to weight loss April 2021. Problem Urinary incontinence R32 Active confirmed 510633818 Medication per Dr. Longoria had been fairly effective. However, I stopped that back in Fall 2011. She is off oxybutynin at present, probably prudently because of her dementia. She wears Depends and is chronically incontinent of both urine and stool. Problem Weight loss R63.4 Active confirmed 03136345 1 Megace was ineffective. She had been on Ritalin intermittently in the past and never provided any benefit. Her weight is gradually dropping. I have restarted Megace as of April 2021; I know of no other alternatives to stimulate her appetite. Problem History of syncope Z87.898 Active confirmed [id number] She had an episode of syncope in July 2016 with an extensive evaluation in hospital including a carotid ultrasound (?), Echocardiogram, CT of the head twice, laboratory evaluation. No etiology was found but her symptoms were attributed to an asymptomatic urinary tract infection. I am skeptical. Problem Macrocytosis without anemia D75.89 Active confirmed 834340009 Noted as of 02/2017. I added a B12 supplement; on replacement therapy her B12 level was over 2000 in August 2019. ALLERGIES Allergen (clinical drug ingredient) Drug/Non Drug Allergy do cumented on EMR Reaction Allergy Type Onset Date Status piroxicam Piroxicam(ND Code:[address]-55) pt unable to recall Drug Allergy Active celecoxib Celecoxib(ND Code:[address]-95) pt unable to recall Drug Allergy Active ENCOUNTERS from 1935 to 2021-05-15 Encounter Location Date Provider Diagnosis [place] [id number] [facility] [phone] [place] [address] Apr, Paresh Cervantes Cognitive dysfunction F09 ; Depression F32.9 ; Hypertension I10 ; Hypercholesterolemia E78.00 ; History of iron deficiency anemia Z86.2 ; Asthma J45.909 ; Gout M10.9 ; Osteoporosis M81.0 ; Gastroesophageal reflux K21.9 ; Urinary incontinence R32 ; Peripheral artery disease I73.9 ; Coronary artery disease I25.10 ; Glaucoma H40.9 ; Allergic rhinitis J30.9 ; Macrocytosis without anemia D75.89 ; Mitral regurgitation I34.0 and Weight loss R63.4 IMMUNIZATIONS Vaccine Route Administration Date Status Influenza 18 yrs & older Flublok IM Intramuscular Aug 13, 2019 Administered Influenza 18 yrs & older Flublok IM Intramuscular Aug 03, 2018 Administered Influenza (High Dose 65 & up) IM Intramuscular Jun 23, 2017 A dministered Influenza (High Dose 65 & up) IM Intramuscular Jun 25, 2016 A dministered Influenza (High Dose 65 & up) IM Intramuscular Jul 24, 2015 A dministered Pneumococcal Adult 0.5mL Pneumovax 23 Unknown Sep 03 04 Administered Pneumococcal 0.5mL Prevnar 13 IM Intramuscular Oct 20, 2015 A dministered TD Adult 0.5mL Tetanus Unknown November 19, 2005 Administe red Influenza 6mo & up Fluzone Unknown Jul 07, 2014 Admin istered SOCIAL HISTORY Tobacco Use: Social History Observation Description Date Details (start date - stop date) Never Smoker Sex Assigned At : Social History Observation Description Sex Assigned At Unknown Audit Question Answer Notes Total Score: 0 Interpretation: Alcohol Education Domestic Violence: Question Answer Notes Status: Sexual Hx: Question Answer Notes Had sex in the last 12 months (vaginal, oral, or anal)? No Have you ever had an STD? No Drug and Alcohol Question Answer Notes Total Score: 0 Interpretation: No problems reported Alcohol Screening: Question Answer Notes Did you have a drink containing alcohol in the past year? No Points 0 Interpretation Negative BMI Care Goal Follow-Up Question Answer Notes Above Normal BMI Follow-Up Dietary management educatio n, guidance, and counseling Tobacco Use: Question Answer Notes Are you a: never smoker REASON FOR REFERRAL from 1935 to 2021-05-15 Reason I have asked for home health assistance due to the fact that she needs some supervision medically that her cannot provide and because he requires some respite from 31/03 care for her. Diagnosis 1 Cognitive dysfunction (F09) Referral Organization [facility] Roland Referring Provider First Name Paresh Referring Provider Last Name Helen Referring Provider Specialty Family Medicine Referred Provider [facility] Referral Priority Routine General Notes Peter Barry 05/15/2021 1:4 5:02 PM > Sent VITAL SIGNS Weight 99 lbs Apr, Weight-kg 44.91 kg Apr, Height 60 in Apr, BMI 19.33 kg/m2 Apr, Heart Rate 76 /min Apr, Respiratory Rate 18 /min Apr, Temperature 97.9 degrees Fahrenheit Apr, Oximetry 99% Apr, Blood pressure systolic 108 mm Hg Apr, Blood pressure diastolic 62 mm Hg Apr, MEDICATIONS Medication SIG (Take, Route, Frequency, Duration) Notes Start Da te End Date Status Norvasc 5 MG 1 tablet Orally Once a day for 90 Active Plavix 75 mg 1 tablet Orally Once a day for 90 Active Senokot S 8.6-50 MG 1 tab(s) Orally twice a day for 90 Active Magnesium Oxide 400 MG 1 tablet as needed Orally Once a day Jun, Not-Taking Trazodone HCl 50 MG TAKE ONE TABLET BY MOUTH AT BEDTIME for 90 Active ProAir HFA 108 (90 Base) MCG/ACT 2 puffs Inhalation Ev vasile 4 hours as needed for cough, wheeze, SOB for 90 day(s) Active Ferrous Sulfate 325 (65 Fe) MG 1 tablet Orally Once a day for 90 day(s) Feb, Active Cyanocobalamin 1000 MCG 1 tablet Orally Once a day Feb, Active Omeprazole 40 mg 1 capsule Orally Daily for 90 Active Losartan Potassium 50 MG 1 tablet Orally Once a day for 90 Active Megestrol Acetate 625 MG/5ML 5 ml Orally Once a day for 30 d ay(s) I do want this filled despite the caution of coexistent treatment with Plavix and age over 65 Apr, Active Atorvastatin Calcium 20 MG TAKE ONE TABLET BY MOUTH EVERY DAY for 90 Active PROCEDURES No Information RESULTS No Results REASON FOR VISIT 6 months MEDICAL (GENERAL) HISTORY Type Description Date Medical History Hypertension Medical History Depression Medical History History of iron deficiency anemia Medical History Asthma Medical History Lung nodule Medical History Osteoarthritis Medical History Gout Medical History Osteoporosis Medical History Gastroesophageal reflux Medical History Urinary incontinence Medical History Peripheral artery disease Medical History Hypercholesterolemia Medical History Coronary artery disease Medical History Vitamin D deficiency Medical History Glaucoma Medical History Allergic rhinitis Medical History Carotid artery disease Medical History Mitral regurgitation Medical History Fatigue Medical History Encounter for other screening for malign ant neoplasm of breast Medical History Weight loss Medical History History of syncope Medical History Cognitive dysfunction Medical History Macrocytosis without anemia Surgical History appendectomy and cholecystectomy 1959's Surgical History LOREN with BSO for menometorrhagia 1983 Surgical History bilateral common iliac arter y and left external iliac vascular stent procedure 2002 Surgical History TVT 11/2006 Surgical History colonoscopy 07/2008 Surgical History cardiac catheterization with stent place ment 04/2013 Surgical History left cataract extraction and glaucoma encarnacion rgery 02/2014 Hospitalization History [facility], fell, multiple fra ctures. 03/2018 Goals Section No Information Health Concerns No Information MEDICAL EQUIPMENT No Information MENTAL STATUS No Information FUNCTIONAL STATUS No Information ASSESSMENTS Encounter Date Diagnosis Assessment Notes Treatment Notes Treatm ent Clinical Notes Apr, Cognitive dysfunction (ICD-10 - F09) Dasia s is gradually progressive; she has Alzheimer's disease. Serologic evaluation has not been revealing in the past but I did start a B12 supplement as of February 2017. Serologic testing in June 2017 was negative and TSH and B12 level were normal in April 2020. She has a history of some behavioral issues including wandering, anorexia, hallucinations. Although there is a warning about the use of atypical psychotics in the elderly with cognitive dysfunction, I think she does need an antipsychotic to control the hallucinations and she was started on low-dose Seroquel in July 2018; because her hallucinations persisted, her Seroquel was increased to 25 mg twice daily in September 2018 and 50 mg at bedtime as of 05/2019, but her has since stopped that medication due to ineffectiveness. Antidepressant therapy would be Effexor and mirtazapine have not been useful in improving her cognitive function. I in the past have suggested that she attend adult daycare blank driller her some respite and have so referred her as of May 2019. Cost was prohibitive. Trazodone at bedtime was added as of 11/2019; she now sleeps well through the night. I have asked for home health assistance due to the fact that she needs some supervision medically that her cannot provide and because he requires some respite from 24/7 care for her. Apr, Depression (ICD-10 - F32.9) She is no lo nger on venlafaxine ER 150 mg daily nor is she on mirtazapine 45 mg at present. Megace did not help her appetite. Ritalin according to her did not provide her any benefit and has been discontinued for good as of August 2019. I added trazodone as of 11/2019 due to insomnia issues. TSH was normal in April 2020. I added Megace as an appetite stimulant due to weight loss April 2021. Apr, Hypertension (ICD-10 - I10) On losartan, Norvasc and apparently no longer on carvedilol; carvedilol has not appeared on her home medication lists since 2019. She stopped Bumex which she took occasionally in the past. Her hydrochlorothiazide was discontinued and her losartan dose was reduced to 50 mg daily in September 2018 because of overcontrolled hypertension. Apr, Hypercholesterolemia (ICD-10 - E78.00) S he is on Lipitor (changed from simvastatin by her zumba instructor in 2012) with control of her lipids as of October 2020. Apr, History of iron deficiency anemia (ICD-1 0 - Z86.2) She has a history of iron deficiency in the past. She was off iron for quite some time. She required a transfusion in March [id number]. She has had full endoscopies and has been off iron for some time. Her last endoscopy in July 2008 revealed erosive esophagitis and ulceration, and a colonoscopy with barium enema was negative. Her hemoglobin dropped in February 2016 and I restarted iron then. Her CBC in February 2017 demonstrated some macrocytosis and I started B12 therapy. A B12 level in June 2017 was over 400. I reduced her iron to every other day then. Her CBC revealed a drop in her hemoglobin to 9.9 as of August 2019, stabilized at 11.2 in October 2020 but dropped to 8.4 in April 2021 because she is not taking iron as directed, 3 times a week. I have restarted iron therapy daily as of April 2021. Apr, Asthma (ICD-10 - J45.909) No prior benef it from a course of prednisone and Dulera. She did not find Symbicort to be helpful in Fall 2010. She was wheezing in 01/2013 and was started back on Dulera, but this did not seem to help her. Breo inhaler was started in 03/2014 with benefit, although she is currently not using it. Apr, Gout (ICD-10 - M10.9) Uric acid level re asonably controlled without medication on diet alone, as of January 2019. She has not had a flare. Apr, Osteoporosis (ICD-10 - M81.0) Osteoporos is, confirmed by bone density study in 2003. Last DEXA 2012 revealed osteopenia of the hips. 25 hydroxy Vitamin D level low in 11/13. Repeated on replacement and 47 in 03/2015, 77 in June 2017, 49 in March 2018, 39 in 08/2019. Bisphosphonate stopped in 2009, after more than 5 years of therapy. She does not fall and given her comorbidities I am reluctant to restart medication. Apr, Gastroesophageal reflux (ICD-10 - K21.9) On Omeprazole. Patient has controlled heartburn. Her last endoscopy July 2008 demonstrated erosive esophagitis. As of October 2017 I reduced her omeprazole to once daily. Apr, Urinary incontinence (ICD-10 - R32) Medi cation per Dr. Longoria had been fairly effective. However, I stopped that back in Fall 2011. She is off oxybutynin at present, probably prudently because of her dementia. She wears Depends and is chronically incontinent of both urine and stool. Apr, Peripheral artery disease (ICD-10 - I73. 9) No significant claudication symptoms. No rest pain. TIA testing last done in August 2011, and she had ABIs of 0.98 bilaterally. She has had previous surgery in 2002. She is on just Plavix; her stopped aspirin. Apr, Coronary artery disease (ICD-10 - I25.10 ) Had a stent placed for AYON and an abnormal stress test, in 04/2013 (right coronary artery). Has residual AYON, but this was controlled on Breo but she apparently no longer needs/uses this. On Plavix, statin, beta samreen, ARB and calcium channel samreen. Her stopped aspirin in 2020 I believe. Last LVEF 63% at stress test in 02/2013. Apr, Glaucoma (ICD-10 - H40.9) On Travatan an d Alphagan I believe(?). She had OS glaucoma surgery (?shunt) 02/09/2014. Apr, Allergic rhinitis (ICD-10 - J30.9) Apr, Macrocytosis without anemia (ICD-10 - D7 5.89) Noted as of 02/2017. I added a B12 supplement; on replacement therapy her B12 level was over 2000 in August 2019. Apr, Mitral regurgitation (ICD-10 - I34.0) Newton lewis had moderately severe MR by echocardiogram in 04/2013, and as part of her syncope workup in July 2016 another echocardiogram was done which revealed moderately severe mitral regurgitation, normal left ventricular function and no evidence of LVH, moderate to severe left atrial dilation, moderate pulmonary hypertension. Due to her dementia repeat echocardiography will not be pursued. Apr, Weight loss (ICD-10 - R63.4) Megace was ineffective. She had been on Ritalin intermittently in the past and never provided any benefit. Her weight is gradually dropping. I have restarted Megace as of April 2021; I know of no other alternatives to stimulate her appetite. PLAN OF TREATMENT Medication Medication Name Sig Start Date Stop Date Trazodone HCl 50 MG TAKE ONE TABLET BY MOUTH AT BEDTIME for 90 Megestrol Acetate 625 MG/5ML 5 ml Orally Once a day for 30 day(s ) Apr, Ferrous Sulfate 325 (65 Fe) MG 1 tablet Orally Once a day fo r 90 day(s) Feb, Atorvastatin Calcium 20 MG TAKE ONE TABLET BY MOUTH EVERY DAY fo r 90 Future Test Test Name Order Date TSH [id number] Comprehensive Metabolic Profile (CMP) [id number] MAGNESIUM LEVEL [id number] CBC with Differential [id number] Referrals Referral Date Details I have asked for home health assistance due to the fact that she needs some supervision medically that her cannot provide and because he requires some respite from 31/03 care for her., [facility] Appt Details 09/2021 Reason: Provider Name:Paresh Cervantes, 2021-10-01 11 :30:00 AM, [address] [facility], , [place], [address], Insurance Providers Payer Name Payer Address Payer Phone Insured Name Patient Relati onship to Insured Coverage Start Date Coverage End Date MEDICARE [facility] [address] [address] [facility] [id number] KEYA VILLEDA self
--- OUTSIDE RECORDS SUMMARY | 2021-08-12 17:48 | CCD ---
Author Author [facility] Organization [facility] Address Unknown Phone Unavailable Support Name Relationship Address Phone RETIRED Next Of Kin Unknown RE Next Of Kin Unknown Unavailable CHRISTIANAKIKI Next Of Kin [address] [place] [address] Noah VILLEDA ECON [address] [place] [address] Re-disclosure Warning The records that you are about to access may contain information from federally-assisted alcohol or drug abuse programs. If such information is present, then the following federally mandated warning applies: This information has been disclosed to you from records protected by federal confidentiality rules (42 CFR part 2). The federal rules prohibit you from making any further disclosure of this information unless further disclosure is expressly permitted by the written consent of the person to whom it pertains or as otherwise permitted by 42 CFR part 2. A general authorization for the release of medical or other information is NOT sufficient for this purpose. The Federal rules restrict any use of the information to criminally investigate or prosecute any alcohol or drug abuse patient.The records that you are about to access may contain highly sensitive health information, the redisclosure of which is protected by Article 27-F of the [facility] Public Health law. If you continue you may have access to information: Regarding HIV / AIDS; Provided by facilities licensed or operated by the [facility] Office of Mental Health; or Provided by the [facility] Office for People With Developmental Disabilities. If such information is present, then the following [facility] mandated warning applies: This information has been disclosed to you from confidential records which are protected by state law. State law prohibits you from making any further disclosure of this information without the specific written consent of the person to whom it pertains, or as otherwise permitted by law. Any unauthorized further disclosure in violation of state law may result in a fine or chcf sentence or both. A general authorization for the release of medical or other information is NOT sufficient authorization for further disc losure. Family History Family Member Name Family Member Gender Family Member Status Date o f Status Description Data Source(s) Unknown Male Problem MEDENT ([facility]) Encounters Encounter Providers Location Date Indications Data Source(s ) Office Visit, Est Pt., Level 4 PC [address] [place] [address] 04/25/2021 12:00:00 AM EDT eCW1 (Critical access hospital) Unknown [address] [facility], [facility] [address] 04/25/2021 12:00:00 AM EDT eCW1 ([facility]) Outpatient [address] [facility] [id number] 10/24/2020 12:00:00 AM EST eCW1 ([facility]) Unknown [address] [facility] [address] 09/12/2020 12:00:00 AM EST eCW1 ([facility]) Immunizations Vaccine Date Status Description Data Source(s) COVID-19 VACCINE [employer] 11/29/2020 12:00:00 AM EDT completed [facility] Vaccine Series Complete: YESThis Data wa s Submitted to [facility] Via [employer]. COVID-19 VACCINE [employer] 11/08/2020 12:00:00 AM EST completed [facility] Vaccine Series Complete: NOThis Data was Submitted to [facility] [employer]. Medications Medication Brand Name Start Date Product Form Dose Route Admi nistrative Instructions Pharmacy Instructions Status Indications Reaction Description Data Source(s) 240 mcg/0.7 mL 06/20/2021 12:00:00 AM EDT syringe 0 INJECT DIRECTED INJECT DIRECTED SOLD: 06/20/2021 [facility] atorvastatin 20 MG Oral Tablet ATORVASTATIN CALCIUM 05/11/2021 1 2:00:00 AM EDT tablet 90 TAKE ONE TABLET BY MOUTH EVERY D AY TAKE ONE TABLET BY MOUTH EVERY DAY SOLD: 05/16/2021 [facility] 50 mg 05/10/2021 12:00:00 AM EDT tablet 90 TAKE ONE TABLET BY MOUTH AT BEDTIME TAKE ONE TABLET BY MOUTH AT BEDTIME SOLD: 05/10/2021 [facility] 625 mg/5 mL (125 mg/mL) 04/26/2021 12:00:00 AM EDT suspensio n 150 TAKE 5ML BY MOUTH DAILY TAKE 5ML BY MOUTH DAILY SOLD: 04/26/2021 [facility] Megestrol Acetate 125 MG/ML Oral Suspension Megestrol Acetate 625 MG/5ML Megestrol Acetate 625 MG/5ML 04/25/2021 12:00:00 AM EDT 5.0 {ml} active Megestrol Acetate 625 MG/5ML eCW1 ([facility]) Megestrol Acetate 125 MG/ML Oral Suspension Megestrol Acetate 625 MG/5ML Megestrol Acetate 625 MG/5ML 04/25/2021 12:00:00 AM EDT 5.0 {ml} active Megestrol Acetate 625 MG/5ML eCW1 ([facility]) 75 mg 02/02/2021 12:00:00 AM EDT tablet 90 TAKE ONE TABLET BY MOUTH EVERY DAY TAKE ONE TABLET BY MOUTH EVERY DAY SOLD: 05/10/2021 [facility] 75 mg 02/02/2021 12:00:00 AM EDT tablet 90 TAKE ONE TABLET BY MOUTH EVERY DAY TAKE ONE TABLET BY MOUTH EVERY DAY SOLD: 02/06/2021 [facility] 40 mg 12/29/2020 12:00:00 AM EDT capsule,delayed release (DR/EC) 90 TAKE ONE CAPSULE BY MOUTH EVERY DAY TAKE ONE CAPSULE BY MOUTH EVERY DAY SOLD: 07/29/2021 [facility] 40 mg 12/29/2020 12:00:00 AM EDT capsule,delayed release (DR/EC) 90 TAKE ONE CAPSULE BY MOUTH EVERY DAY TAKE ONE CAPSULE BY MOUTH EVERY DAY SOLD: 04/25/2021 [facility] 40 mg 12/29/2020 12:00:00 AM EDT capsule,delayed release (DR/EC) 90 TAKE ONE CAPSULE BY MOUTH EVERY DAY TAKE ONE CAPSULE BY MOUTH EVERY DAY SOLD: 01/03/2021 [facility] 8.6-50 mg 12/05/2020 12:00:00 AM EDT tablet 180 TAKE ONE TABLET BY MOUTH TWICE A DAY TAKE ONE TABLET BY MOUTH TWICE A DAY SOLD: 06/22/2021 [facility] 5 mg 12/05/2020 12:00:00 AM EDT tablet 90 TAKE ONE TABLET BY MOUTH EVERY DAY TAKE ONE TABLET BY MOUTH EVERY DAY SOLD: 03/10/2021 [facility] 5 mg 12/05/2020 12:00:00 AM EDT tablet 90 TAKE ONE TABLET BY MOUTH EVERY DAY TAKE ONE TABLET BY MOUTH EVERY DAY SOLD: 06/22/2021 [facility] 8.6-50 mg 12/05/2020 12:00:00 AM EDT tablet 180 TAKE ONE TABLET BY MOUTH TWICE A DAY TAKE ONE TABLET BY MOUTH TWICE A DAY SOLD: 12/11/2020 [facility] 5 mg 12/05/2020 12:00:00 AM EDT tablet 90 TAKE ONE TABLET BY MOUTH EVERY DAY TAKE ONE TABLET BY MOUTH EVERY DAY SOLD: 12/11/2020 [facility] 50 mg 11/04/2020 12:00:00 AM EST tablet 90 TAKE ONE TABLET BY MOUTH EVERY DAY TAKE ONE TABLET BY MOUTH EVERY DAY SOLD: 07/29/2021 [facility] 50 mg 11/04/2020 12:00:00 AM EST tablet 90 TAKE ONE TABLET BY MOUTH EVERY DAY TAKE ONE TABLET BY MOUTH EVERY DAY SOLD: 02/13/2021 [facility] 50 mg 11/04/2020 12:00:00 AM EST tablet 90 TAKE ONE TABLET BY MOUTH EVERY DAY TAKE ONE TABLET BY MOUTH EVERY DAY SOLD: 11/12/2020 [facility] 50 mg 06/01/2020 12:00:00 AM EDT tablet 90 TAKE ONE TABLET BY MOUTH AT BEDTIME TAKE ONE TABLET BY MOUTH AT BEDTIME SOLD: 02/01/2021 [facility] 50 mg 06/01/2020 12:00:00 AM EDT tablet 90 TAKE ONE TABLET BY MOUTH AT BEDTIME TAKE ONE TABLET BY MOUTH AT BEDTIME SOLD: 11/12/2020 [facility] 50 mg 06/01/2020 12:00:00 AM EDT tablet 90 TAKE ONE TABLET BY MOUTH AT BEDTIME TAKE ONE TABLET BY MOUTH AT BEDTIME SOLD: 08/25/2020 [facility] atorvastatin 20 MG Oral Tablet ATORVASTATIN CALCIUM 02/10/2020 1 2:00:00 AM EDT tablet 90 TAKE ONE TABLET BY MOUTH EVERY D AY TAKE ONE TABLET BY MOUTH EVERY DAY SOLD: 06/21/2020 [facility] atorvastatin 20 MG Oral Tablet ATORVASTATIN CALCIUM 02/10/2020 1 2:00:00 AM EDT tablet 90 TAKE ONE TABLET BY MOUTH EVERY D AY TAKE ONE TABLET BY MOUTH EVERY DAY SOLD: 02/01/2021 [facility] atorvastatin 20 MG Oral Tablet ATORVASTATIN CALCIUM 02/10/2020 1 2:00:00 AM EDT tablet 90 TAKE ONE TABLET BY MOUTH EVERY D AY TAKE ONE TABLET BY MOUTH EVERY DAY SOLD: 10/09/2020 [facility] 75 mg 11/30/2019 12:00:00 AM EDT tablet 90 TAKE ONE TABLET BY MOUTH EVERY DAY TAKE ONE TABLET BY MOUTH EVERY DAY SOLD: 10/09/2020 [facility] 50 mg 11/27/2019 12:00:00 AM EDT tablet 90 TAKE ONE TABLET BY MOUTH EVERY DAY TAKE ONE TABLET BY MOUTH EVERY DAY SOLD: 06/21/2020 [facility] 50 mg 11/27/2019 12:00:00 AM EDT tablet 90 TAKE ONE TABLET BY MOUTH EVERY DAY TAKE ONE TABLET BY MOUTH EVERY DAY SOLD: 09/08/2020 [facility] 40 mg 10/19/2019 12:00:00 AM EST capsule,delayed release (DR/EC) 90 TAKE ONE CAPSULE BY MOUTH EVERY DAY TAKE ONE CAPSULE BY MOUTH EVERY DAY SOLD: 09/08/2020 [facility] 5 mg 10/06/2019 12:00:00 AM EST tablet 90 TAKE ONE TABLET BY MOUTH EVERY DAY TAKE ONE TABLET BY MOUTH EVERY DAY SOLD: 08/15/2020 [facility] Insurance Providers Payer name Policy type / Coverage type Policy ID Covered constitution party ID Covered constitution party's relationship to urias Policy Urias Plan Information [facility] 2 [id number] MEDICARE 4 [id number] A [facility] MEDICARE SOLUTIO 11 [id number] 1 [id number] [facility] MEDIC[facility] COMPLETE G [id number] Self [id number] [facility] MEDIC[facility] COMPLE[facility] G [id number] Self [id number] [facility] (Medicare) Commercial [id number] Self [id number] ANS-Medicare Part B [id number] ANS-Medicare Part B [id number] ANSI-Medicare Part B [id number] ANSI-Medicare Part B [id number] MEDICARE COMPLETE-[facility] O [id number] S [id number] SELF PAY 2 UNAVAILABLE 1 UNAVAILA BLE MEDICARE COMPLETE [id number] SP [id number] MEDICARE COMPLETE [id number] SP [id number] MEDICARE COMPLETE [id number] SP [id number] MEDICARE COMPLETE [id number] SP [id number] ANSI-Medicare Part B [id number] ANSI-Medicare Part B [id number] ANSI-Medicare Part B [id number] Problems, Conditions, and Diagnoses Code Display Name Description Problem Type Effective Dates Data Source(s) I73.89 Peripheral vascular disease Peripheral vascular diseas e Problem 03/06/2021 12:00:00 AM EDT [facility] ([facility] Surgeries/Procedures Procedure Description Date Indications Data Source(s) DEBRIDEMENT NAIL ANY METHOD 07/20/2021 12:00:00 AM EST [facility] ([facility] DEBRIDEMENT NAIL ANY METHOD 05/10/2021 12:00:00 AM EDT [facility] ([facility] DEBRIDEMENT NAIL ANY METHOD 03/01/2021 12:00:00 AM EDT [facility] ([facility] DEBRIDEMENT NAIL ANY METHOD 12/21/2020 12:00:00 AM EDT [facility] ([facility] DEBRIDEMENT NAIL ANY METHOD 10/09/2020 12:00:00 AM EST [facility] ([facility] DEBRIDEMENT NAIL ANY METHOD 06/14/2020 12:00:00 AM EDT [facility] ([facility] Results No Information Social History Code Duration Value Status Description Data Source(s ) Smoking 04/25/2021 12:00:00 AM EDT Never Smoker completed Never S moker eCW1 ([facility]) Smoking 04/25/2021 12:00:00 AM EDT Never Smoker completed Never S moker eCW1 ([facility]) Smoking 10/24/2020 12:00:00 AM EST Never Smoker completed Never S moker eCW1 ([facility]) Vital Signs ID Date Data Source UNK Name Value Range Interpretation Code Description Data Source(s) Body weight 99 [lb_av] 99 [lb_av] eCW[facility] ([facility] Body weight 44.91 kg 44.91 kg eCW1 ([facility]) Body height 60 [in_i] 60 [in_i] eCW1 ([facility]) Body mass index (BMI) [Ratio] 19.33 kg/m2 19.33 kg/m2 W1 ([facility]) Heart rate 76 /min 76 /min eCW1 ([facility]) Respiratory rate 18 /min 18 /min eCW1 ([facility]) Body temperature 97.9 [degF] 97.9 [degF] eCW1 ( [facility]) Systolic blood pressure 108 mm[Hg] 108 mm[Hg] e CW1 ([facility]) Diastolic blood pressure 62 mm[Hg] 62 mm[Hg] eCW1 ([facility]) Body weight 108.8 [lb_av] 108.8 [lb_av] eCW1 ([facility]) Body height 60 [in_i] 60 [in_i] eCW1 (Critical access hospital) Body mass index (BMI) [Ratio] 21.25 kg/m2 21.25 kg/m2 eCW1 ([facility]) Heart rate 81 /min 81 /min eCW1 ([facility]) Respiratory rate 18 /min 18 /min eCW1 ([facility]) Body temperature 98.5 [degF] 98.5 [degF] eCW1 ( [facility]) Systolic blood pressure 112 mm[Hg] 112 mm[Hg] e CW1 ([facility]) Diastolic blood pressure 66 mm[Hg] 66 mm[Hg] eCW1 ([facility]) Patient Treatment Plan of Care Planned Activity Planned Date Details Description Data Source (s) Megestrol Acetate 125 MG/ML Oral Suspension 04/25/2021 12:00:00 AM EDT eCW1 ([facility]) Megestrol Acetate 125 MG/ML Oral Suspension 04/25/2021 12:00:00 AM EDT eCW1 ([facility])
--- OUTSIDE RECORDS SUMMARY | 2021-08-12 17:48 | CCD | Continuity of Care Document ---
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 AUTM [phone] Problems Active Problems Provider Date Onychomycosis Toñito Hi DPM Onset: 04/09/2020 Ingrowing nail Toñito Hi DPM Onset: 04/09/2020 Pain in limb Toñito Hi DPM Onset: 04/09/2020 Peripheral vascular disease Toñito Hi DPM Onset: 02/07 Social History Type Date Description Comments Sex Unknown ETOH Use Denies alcohol use Tobacco Use Start: Unknown Patient has never smoked Allergies and adverse reactions Description No Known Drug Allergies Medications Active Medications SIG Qnty Indications Ordering Provide r Date Losartan Potassium 50mg Tablets Paresh Cervantes M.D. Trazodone HCL 50mg Tablets Take One Tablet By Mouth AT Bedtime Unknown Amoxicillin/Clavulanate Potassium 875-125mg Tablets Take One Tablet By Mouth Twice A Day Unkn own Omeprazole 40mg Capsules DR Helen Fierro,Paresh Atorvastatin Calcium 20mg Tablets Take One Tablet By Mouth Every Day Unknown Amlodipine Besylate 5mg Tablets Helen Fierro,Paresh Clopidogrel Bisulfate 75mg Tablets Helen Fierro,Paresh Stool Softener/Laxative 50-8.6mg T ablets Take One Tablet By Mouth Twice A Day Unknown Quetiapine Fumarate 25mg Tablets Take One Tablet By Mouth Twice A Day Unknown Carvedilol 12.5mg Tablets Take One Tablet By Mouth Twice A Day With Food Unknown 0 Immunizations Description No Information Available Vital Signs Date Vital Result Comment 04/05/2020 1:06pm Height 53 inches 4'5" Weight 117.00 lb BP Systolic 140 mmHg BP Diastolic 70 mmHg Heart Rate 63 /min BMI (Body Mass Index) 29.3 kg/m2 Results Description No Information Available Procedures Date Code Description Status 07/20/2021 11953 Debridement 6-10 Nails Electric Completed 05/10/2021 30739 Debridement 6-10 Nails Electric Completed 03/01/2021 56225 Debridement 6-10 Nails Electric Completed Medical Devices Description No Information Available Encounters Description No Information Available Assessments Date Code Description Provider 07/20/2021 B35.1 Tinea unguium Toñito Hi, DANIEL 07/20/2021 I73.89 Other specified peripheral vascu lar diseases Toñito Hi DPM 05/10/2021 B35.1 Tinea unguium Toñito Hi DPM 05/10/2021 I73.89 Other specified peripheral vascu lar diseases Toñito Hi DPM 03/01/2021 B35.1 Tinea malcolmuium Toñito Hi, DANIEL 03/01/2021 I73.89 Other specified peripheral vascu lar diseases Toñito Hi DPM Plan of Treatment Future Appointment(s):* 09/28/2021 10:00 am - To[facility]ito Hi DPM at [facility] Functional Status Description No Information Available Mental Status Description No Information Available Referrals Description No Information Available
--- OUTSIDE RECORDS SUMMARY | 2021-08-12 17:48 | CCD | Continuity of Care Document ---
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 Name Role Phone Paresh Cervantes M.D.M [phone] Problems Active Problems Provider Date Onychomycosis Toñito Hi DPM Onset: 04/09/2020 Ingrowing nail Toñito Hi DPM Onset: 04/09/2020 Pain in limb Toñito Hi DPM Onset: 04/09/2020 Peripheral vascular disease Toñito Hi DPM Onset: 02/07 Social History Type Date Description Comments Sex Unknown ETOH Use Denies alcohol use Tobacco Use Start: Unknown Patient has never smoked Allergies, Adverse Reactions, Alerts Description No Known Drug Allergies Medications Active [...] Tablet By Mouth Twice A Day Unknown /0 Carvedilol 12.5mg Tablets Take One Tablet By Mouth Twice A Day With Food Unknown 0 Immunizations Description No Information Available Vital Signs Date Vital Result Comment 04/05/2020 1:06pm Height 53 inches 4'5" Weight 117.00 lb BP Systolic 140 mmHg BP Diastolic 70 mmHg Heart Rate 63 /min BMI (Body Mass Index) 29.3 kg/m2 Results Description No Information Available Procedures Date Code Description Status 05/10/2021 95540 Debridement 6-10 Nails Electric Completed 03/01/2021 74826 Debridement 6-10 Nails Electric Completed 12/21/2020 69285 Debridement 6-10 Nails Electric Completed Medical Devices Description No Information Available Encounters Description No Information Available Assessments Date Code Description Provider 05/10/2021 B35.1 Tinea unguium Toñito Hi, DANIEL 05/10/2021 I73.89 Other specified peripheral vascu lar diseases Toñito Hi DPM 03/01/2021 B35.1 Tinea unguium Toñito Hi, DANIEL 03/01/2021 I73.89 Other specified peripheral vascu lar diseases Toñito Hi DPM 12/21/2020 B35.1 Tinea unguium Toñito Hi, DANIEL 12/21/2020 I73.89 Other specified peripheral vascu lar diseases Toñito Hi DPM Plan of Treatment Future Appointment(s):* 07/20/2021 9:00 am - Toñito Hi DPM at [facility] Functional Status Description No Information Available Mental Status Description No Information Available Referrals Description No Information Available
--- NOTE | 2021-08-12 18:54 | REP ---
INDICATION: trauma/fall. COMPARISON: None. TECHNIQUE: Two views of the right humerus were obtained. FINDINGS: There is a comminuted fracture of the right humerus proximally involving the surgical neck and greater tuberosity. The humeral head appears located. IMPRESSION: Comminuted fracture of the right humerus proximally as described. <Electronically signed by Kev Pizano > 08/12/21 [id number]
--- NOTE | 2021-08-12 18:58 | REP ---
INDICATION: trauma/fall. COMPARISON: PA and lateral chest, 11/07/2006. TECHNIQUE: AP portable chest image was obtained. FINDINGS: The lungs are clear. The heart is enlarged. There is a large hiatal hernia. There is calcific vascular disease of the thoracic aorta. There is a comminuted fracture of the right humerus proximally, more completely described in a separate report on the right humerus. IMPRESSION: No evidence of acute cardiopulmonary pathology. Right humeral fracture. Other findings as noted. <Electronically signed by Kev Pizano > 08/12/21 [id number]
--- NOTE | 2021-08-12 19:10 | REPVR ---
PROCEDURE INFORMATION: Exam: CT Head Without Contrast Exam date and time: 08/12/2021 6:13 PM Age: 85 years old Clinical indication: Injury or trauma; Fall; Blunt trauma (contusions or hematomas); Additional info: Fall injury TECHNIQUE: Imaging protocol: Computed tomography of the head without contrast. Radiation optimization: All CT scans at this facility use at least one of these dose optimization techniques: automated exposure control; mA and/or kV adjustment per patient size (includes targeted exams where dose is matched to clinical indication); or iterative reconstruction. COMPARISON: CT Head without contrast 03/14/2020 4:47 PM FINDINGS: Brain: There is glxh-jk-ysbljepm diffuse cerebellar atrophy. There is moderate age related parenchymal volume loss. White matter changes are demonstrated in the subcortical, centrum semiovale and periventricular white matter consistent with chronic age related small vessel ischemic changes. Cerebral ventricles: The degree of ventricular dilatation is normal for age and/or degree of atrophy present. Paranasal sinuses: Visualized sinuses are unremarkable. No fluid levels. Mastoid air cells: Visualized mastoid air cells are well aerated. Vasculature: Atherosclerotic calcifications are demonstrated in the intracranial carotid arteries bilaterally as well as in the vertebral basilar system. Bones/joints: Unremarkable. No acute fracture. Soft tissues: Unremarkable. IMPRESSION: 1. There is visj-uj-lsvlmsai diffuse cerebellar atrophy. 2. There is moderate age related parenchymal volume loss. White matter changes are demonstrated in the subcortical, centrum semiovale and periventricular white matter consistent with chronic age related small vessel ischemic changes. 3. The degree of ventricular dilatation is normal for age and/or degree of atrophy present. 4. No acute intracranial findings. Electronically signed by: Kael Love On 08/12/2021 19:10:01 PM
[2021-08-12 19:11] LABS: BASO % 0.7 % (0.0-1.0); EOS # 0.2 10^3/uL (0.0-0.5); EOS % 3.3 % (0.0-3.0); HEMATOCRIT 33.5 % (36.0-47.0); HEMOGLOBIN 9.4 g/dl (12.0-15.5); LYMPH # 0.8 10^3/uL (1.5-5.0); LYMPH % 13.7 % (24.0-44.0); MEAN CORPUSCULAR HEMOGLOBIN 29.4 pg (27.0-33.0); MEAN CORPUSCULAR HGB CONC 28.1 g/dl (32.0-36.5); MEAN CORPUSCULAR VOLUME 104.7 fl (80.0-96.0); MONO # 0.4 10^3/uL (0.0-0.8); MONO % 6.9 % (2.0-8.0); NEUTROPHILS # 4.6 10^3/uL (1.5-8.5); NEUTROPHILS % 75.1 % (36.0-66.0); PLATELET COUNT, AUTOMATED 249 10^3/uL (150-450); WHITE BLOOD COUNT 6.1 10^3/uL (4.0-10.0)
--- NOTE | 2021-08-12 19:14 | REPVR ---
PROCEDURE INFORMATION: Exam: CT Maxillofacial Without Contrast Exam date and time: 08/12/2021 6:13 PM Age: 85 years old Clinical indication: Injury or trauma; Fall; Blunt trauma (contusions or hematomas); Head/scalp; Loss of consciousness not known; Additional info: Fall injury TECHNIQUE: Imaging protocol: Computed tomography images of the face without contrast. Radiation optimization: All CT scans at this facility use at least one of these dose optimization techniques: automated exposure control; mA and/or kV adjustment per patient size (includes targeted exams where dose is matched to clinical indication); or iterative reconstruction. COMPARISON: CT Maxilofacial w/out contrast 03/14/2020 4:47 PM FINDINGS: Orbital cavity: Orbits are normal. Globes are unremarkable. Bones/joints: Age indeterminate left nasal fracture. Paranasal sinuses: Normal. No air-fluid levels. Soft tissues: Unremarkable. Nasal cavity: Right ivette bullosa on the right. Nasal septum deviated to the left with ipsilateral nasal spur. IMPRESSION: No acute findings. Electronically signed by: Kael Love On 08/12/2021 19:14:07 PM
--- NOTE | 2021-08-12 19:19 | REPVR ---
PROCEDURE INFORMATION: Exam: CT Cervical Spine Without Contrast Exam date and time: 08/12/2021 6:13 PM Age: 85 years old Clinical indication: Injury or trauma; Fall; Blunt trauma; Additional info: Fall injury TECHNIQUE: Imaging protocol: Computed tomography images of the cervical spine without contrast. Radiation optimization: All CT scans at this facility use at least one of these dose optimization techniques: automated exposure control; mA and/or kV adjustment per patient size (includes targeted exams where dose is matched to clinical indication); or iterative reconstruction. COMPARISON: CT Spine,cervical w/o contrast 03/14/2020 4:47 PM FINDINGS: Bones/joints: No acute fracture. Normal alignment. Discs/Spinal canal/Neural foramina: Degenerative changes redemonstrated in the Jaswant axial joint with osteophytes and joint space narrowing. Transverse ligament is hypertrophied. There is disc space narrowing demonstrated from C3-C4 to C6-C7 with intervertebral osteophytes. There is severe foraminal stenosis on the right and moderate foraminal stenosis on the left at C3, severe bilateral foraminal stenosis at C4, severe foraminal stenosis on the left and moderate to severe foraminal stenosis on the right at C5, bilateral moderate foraminal stenosis at C6, changes secondary to osteophytic encroachment. There are disc osteophyte complexes demonstrated from C3-C4 to C6-C7 resulting in varying degrees of effacement of the ventral subarachnoid space with moderate cord impingement at C4-C5. Lungs: Lung apices are normal. Soft tissues: See "Discs/Spinal canal/Neural foramina" finding. IMPRESSION: No acute findings. Electronically signed by: Kael Love On 08/12/2021 19:18:28 PM
[2021-08-12] MEDS ORDERED: LIDOCAINE W/EPINEPHRINE 1% 20ML VIAL As Ordered ONE (19:25)
[2021-08-12] MEDS ORDERED: LIDOCAINE W/EPINEPHRINE 1% 20ML VIAL SC ONE (19:25)
--- OUTSIDE RECORDS SUMMARY | 2021-08-12 19:26 | CCD ---
Author Author [facility] Organization [facility] Address Unknown Phone Unavailable Support Name Relationship Address Phone RETIRED Next Of Kin Unknown RE Next Of Kin Unknown Unavailable CHRISTIANAKIKI Next Of Kin [address] [place] [address] Noah VILLEDA ECON [address] [place] [address] Re-disclosure Warning The records that [...] is protected by Article 27-F of the [facility] Public Health law. If you continue you may have access to information: Regarding HIV / AIDS; Provided by facilities licensed or operated by the [facility] Office of Mental Health; or Provided by the [facility] Office for People With Developmental Disabilities. If such information is present, then the following [facility] mandated warning applies: This information has been [...] law may result in a fine or [place] [facility] [place] sentence or both. A general authorization for [...] Est Pt., Level 4 [address] [place] [address] 04/25/2021 12:00:00 AM EDT eCW1 ([facility]) Unknown [address] [facility], [facility] [address] 04/25/2021 12:00:00 AM EDT eCW1 ([facility]) Outpatient [address] [facility] [address] 10/24/2020 12:00:00 AM EST eCW1 ([facility]) Unknown [address] [facility] [address] 09/12/2020 12:00:00 AM EST eCW1 ([facility]) Immunizations Vaccine Date Status Description Data Source(s) COVID-19 VACCINE [facility] 11/29/2020 12:00:00 AM EDT completed [facility] Vaccine Series Complete: YESThis Data wa s Submitted to [facility] Via [employer]. COVID-19 VACCINE [facility] 11/08/2020 12:00:00 AM EST completed [facility] Vaccine Series Complete: NOThis Data was Submitted to [facility] Via [employer]. Medications Medication Brand Name Start Date Product [...] {ml} active Megestrol Acetate 625 MG/5ML eCW1 ([facility]) Megestrol Acetate 125 MG/ML Oral Suspension Megestrol Acetate 625 MG/5ML Megestrol Acetate 625 MG/5ML 04/25/2021 12:00:00 AM EDT 5.0 {ml} active Megestrol Acetate 625 MG/5ML eCW1 ([facility]) 75 mg 02/02/2021 12:00:00 AM EDT tablet [...] CAPSULE BY MOUTH EVERY DAY SOLD: 09/08/2020 [facility] 5 mg 10/06/2019 12:00:00 AM EST tablet 90 TAKE ONE TABLET BY MOUTH EVERY DAY TAKE ONE TABLET BY MOUTH EVERY DAY SOLD: 08/15/2020 [facility] Insurance Providers Payer name Policy type / Coverage type Policy ID Covered green party ID Covered green party's relationship to urias Policy Urias Plan Information [facility] 2 [id number] 1 [id number] MEDICARE [id number] [id number] [facility] MEDICARE SOLUTIO 11 [id number] 1 [id number] [facility] MEDICARE COMPLETE G [id number] Self [id number] [facility] MEDICARE COMPLETE G [id number] Self [id number] [facility] (Medicare) Commercial [id number] Self [id number] ANS-Medicare Part B [id number] ANS-Medicare Part B [id number] ANSI-Medicare Part B [id number] ANSI-Medicare Part B [id number] MEDICARE COMPLETE-[facility] O [id number] S [id number] SELF PAY 2 UNAVAILABLE 1 UNAVAILA BLE MEDICARE COMPLETE [id number] SP [id number] MEDICARE COMPLETE [id number] SP [id number] MEDICARE COMPLETE [id number] SP [id number] MEDICARE COMPLETE [id number] SP [id number] ANSI-Medicare Part B [id number] ANSI-Medicare Part B [id number] ANSI-Medicare Part B [id number] Problems, Conditions, and Diagnoses Code Display Name [...] Never Smoker completed Never S moker eCW1 ([facility]) Smoking 04/25/2021 12:00:00 AM EDT Never Smoker completed Never S moker eCW1 ([facility]) Smoking 10/24/2020 12:00:00 AM EST Never Smoker completed Never S moker eCW1 ([facility]) Vital Signs ID Date Data Source UNK Name Value Range Interpretation Code Description Data Source(s) Body weight 99 [lb_av] 99 [lb_av] eCW1 ([facility]) Body weight 44.91 kg 44.91 kg eCW1 ([facility]) Body height 60 [in_i] 60 [in_i] eCW1 ([facility]) Body mass index (BMI) [Ratio] 19.33 kg/m2 19.33 kg/m2 W1 ([facility]) Heart rate 76 /min 76 /min eCW1 ([facility]) Respiratory rate 18 /min 18 /min eCW1 ([facility]) Body temperature 97.9 [degF] 97.9 [degF] eCW1 ( [facility]) Systolic blood pressure 108 mm[Hg] 108 mm[Hg] e CW1 ([facility]) Diastolic blood pressure 62 mm[Hg] 62 mm[Hg] eCW1 ([facility]) Body weight 108.8 [lb_av] 108.8 [lb_av] eCW1 ([facility]) Body height 60 [in_i] 60 [in_i] eCW1 ([facility]) Body mass index (BMI) [Ratio] 21.25 kg/m2 21.25 kg/m2 eCW1 ([facility]) Heart rate 81 /min 81 /min eCW1 ([facility]) Respiratory rate 18 /min 18 /min eCW1 ([facility]) Body temperature 98.5 [degF] 98.5 [degF] eCW1 ( [facility]) Systolic blood pressure 112 mm[Hg] 112 mm[Hg] e CW1 ([facility]) Diastolic blood pressure 66 mm[Hg] 66 mm[Hg] eCW1 ([facility]) Patient Treatment Plan of Care Planned Activity Planned Date Details Description Data Source (s) Megestrol Acetate 125 MG/ML Oral Suspension 04/25/2021 12:00:00 AM EDT eCW1 ([facility]) Megestrol Acetate 125 MG/ML Oral Suspension 04/25/2021 12:00:00 AM EDT eCW1 ([facility])
[2021-08-12] MEDS ORDERED: DERMABOND TOPICAL SKIN ADHESIVE TOP ONE (19:45)
[2021-08-12 19:53] LABS: ALBUMIN 2.8 GM/DL (3.2-5.2); ALT/SGPT 25 U/L (12-78); BILIRUBIN,DIRECT < 0.1 MG/DL (0.0-0.2); BILIRUBIN,TOTAL 0.3 MG/DL (0.2-1.0); BLOOD UREA NITROGEN 68 MG/DL (7-18); CALCIUM LEVEL 9.3 MG/DL (8.8-10.2); CARBON DIOXIDE LEVEL 24 MEQ/L (21-32); CHLORIDE LEVEL 146 MEQ/L (98-107); CREATININE FOR GFR 1.71 MG/DL (0.55-1.30); GLOMERULAR FILTRATION RATE 30.3 (>32); GLUCOSE, FASTING 84 MG/DL (70-100); LIPASE 242 U/L (73-393); NT-PRO BNP 1294 PG/ML (<450); SODIUM LEVEL 175 MEQ/L (136-145); TOTAL PROTEIN 6.1 GM/DL (6.4-8.2)
[2021-08-12] MEDS ORDERED: NS 1,000 ML IV ONE (20:10)
[2021-08-12 20:12] LABS: RSV AMPLIFICATION NEGATIVE (NEGATIVE)
--- NOTE | 2021-08-12 22:19 | REPVR ---
PROCEDURE INFORMATION: Exam: CT Right Upper Extremity Without Contrast, Shoulder Exam date and time: 08/12/2021 9:48 PM Age: 85 years old Clinical indication: Injury or trauma; Fall; Blunt trauma (contusions or hematomas); Shoulder; Right; Additional info: Further evaluate right shoulder fracture TECHNIQUE: Imaging protocol: CT of the Right upper extremity without contrast was performed. Exam focused on the shoulder. Radiation optimization: All CT scans at this facility use at least one of these dose optimization techniques: automated exposure control; mA and/or kV adjustment per patient size (includes targeted exams where dose is matched to clinical indication); or iterative reconstruction. COMPARISON: CR [facility] 08/12/2021 6:12 PM FINDINGS: Bones/joints: Comminuted displaced fracture of the humeral neck with anterior displacement of the shaft relative to the humeral head. Osteoporosis. Soft tissues: Hyperdensity demonstrated in the surrounding soft tissues consistent with acute hemorrhage associated with edema. Glenohumeral joint effusion. Fluid also demonstrated in the subacromial subdeltoid bursa. IMPRESSION: 1. Comminuted displaced fracture of the humeral neck with anterior displacement of the shaft relative to the humeral head. 2. Hyperdensity demonstrated in the surrounding soft tissues consistent with acute hemorrhage associated with edema. Glenohumeral joint effusion. Fluid also demonstrated in the subacromial subdeltoid bursa. Electronically signed by: Kael Love On 08/12/2021 22:18:43 PM
[2021-08-12] MEDS ORDERED: ALBU8.5H INH (22:24)
[2021-08-12] MEDS ORDERED: TRAZ-252 PO (22:24)
[2021-08-12] MEDS ORDERED: LOSA50TA88 PO (22:24)
[2021-08-12] MEDS ORDERED: HOME MED LIST COMPLETE! XX SCH (22:25)
--- NOTE | 2021-08-12 23:26 | HPEPDOC ---
[facility] Medical History & Physical Date of Admission Aug 12, 2021 Date of Service: Aug 12, 2021 History and Physical CHIEF COMPLAINT: Fall at home HISTORY OF PRESENT ILLNESS: 85-year-old female seen at the emergency department brought in by her because she sustained a fall at home falling onto her face sustaining a laceration which was addressed by the emergency department. Imaging reveals that she has a Comminuted fracture of the right humerus proximally which will be evaluated by orthopedic surgeon Dr. Dunn who request a CT shoulder. believe she sustained a fall onto her right shoulder likely broke it approximately one week ago. endorses that his has been progressively getting worse over the past 1 month she has baseline dementia but up until one month ago she was able to slowly walk around without assistive devices and she was able to converse he endorses that approximately one week ago she stopped talking became nonverbal and lost her ability to mobilize. Her tells me he didn't try to take her to the hospital or have her evaluated by a medical professional as he felt she will recover on her own. He tells me that over the past several weeks he's been carrying her around the house feeding her himself and providing 24 hour supervision. Despite this he feels she is progressively getting weaker and hasn't been eating or drinking much for the past several weeks. I am unable to obtain any history from the patient as she is nonverbal. Sodium was 175 in the emergency department she received 1 L bolus normal saline. Repeat BMP did not show improvement in fact sodium slightly worsened 176. I discussed the case with Dr. Zaragoza nephrology to assist with fluid management will proceed to transition her to maintenance fluids at 1/2NS and repeat BMPs every 4 hours. Patient will be admitted to medical service further medical management. I asked the ED to place a Castaneda and obtain a UA. PAST MEDICAL/SURGICAL HISTORY: endorses a history of hypertension and dementia states she otherwise has no other medical conditions Medicine reconciliation so she likely has other medical problems including hyperlipidemia,GERD, unclear why she's on plavix. denies she has a history of CAD or stroke. indicates she's had an elbow surgery otherwise denies any other surgeries SOCIAL HISTORY: Unable to obtain review of systems from the patient given her mentation Per she does not drink alcohol or smoke tobacco. FAMILY HISTORY: Unable to obtain review of systems from the patient given her mentation ALLERGIES: Please see below. REVIEW OF SYSTEMS: Unable to obtain review of systems from the patient given her mentation HOME MEDICATIONS: Please see below. PHYSICAL EXAMINATION: Constitutional: Awake, in no apparent distress, stares off at a distance doesn't make eye contact, doesn't follow commands. None verbal. Mutters intangible word s. Appears sarcopenic, elderly, frail, weak, cachexic appearance. ENT: Sclera are clear. Mucosa is dry. Respiratory: Lungs CTA bilaterally. No respiratory distress. No use of accessory muscles. Saturating at 94% on room air. Cardiovascular: Regular rate and rhythm. Rate of 72 on monitor. Gastrointestinal: Abdomen is soft, non distended, non tender, BS present. Musculoskeletal: mild dependent lower extremity edema. Right shoulder in sling exam deferred to ortho. Neurologic: Unable to assess Skin: laceration around her left eye LABORATORY DATA: See below. IMAGING: See chart MICROBIOLOGY: Please see below. ASSESSMENT/PLAN # Hypernatremia: 175 on admit. S/p 1L NS in the ED. Discussed nephrology Dr Zaragoza to assist with management. Recommended 1/2NS @80 ordered 2L and then AM team to re-evaluate fluid type/rate needs and repeat BMPs q4h. Fu urine lytes. Castaneda catheter for critical monitoring. # AUNG: Cr 1.71 GFR 30. Likely prerenal secondary to dehydration. Fu FeNa. IVFs 1/2NS. Trend BMP. Avoid nephrotoxins. Appreciate nephro recs. Ordered UA, start Abx if UA is positive. # Fracture of right proximal humerus: Per ortho. Evaluated by Dr dunn in the ED. Should be operated on within ~1-2 weeks. Medical optimization first and then decision for surgery. Can be seen inpatient or follow up in ortho clinic. Request CT shoulder to be able to offer available options. Sling in place. # Multiple falls: Multifactorial due to advanced aged debility cachexia weakn ess dehydration. PT/OT eval. # Cachexia and debility: Nutrition consult. PT/OT eval. Ensure. 1:1 feeding. BMI 12.6. Bowel regiment. # HTN: BP acceptable at this time for her age. Hold anti-hypertensive losartan and amlodipine for now and resume as needed. # Anemia: hgb 9.4 on admit. Fu TIBC, ferritin, Monitor CBC. # DVT prophylaxis: Heparin # From home medication list; unclear why she's on plavix. Will resume for now but will ask AM team to obtain records from PCP Dr Cervantes to find out her full medical history. Also appears like she has HLD, will continue Lipitor. Also likely GERD, will resume omeprazole. Trazodone will be held as it can worsen her mentation. Her prognosis is guarded given her advanced age in addition to her severe dehydrated with a critically high sodium, she is cachexic and a BMI of only 12. Detailed CODE STATUS discussion had with he indicates that his would've wanted to be DNR/DNI. MOLST form completed in chart. A [facility] Hospital[facility] Vital Signs Vital Signs Date Time Temp Pulse Resp B/P (MAP) Pulse Ox O2 Delivery O2 Flow Rate FiO2 08/12/21 18:14 97.9 75 16 148/65 (92) 99 Room Air Laboratory Data Labs 24H Laboratory Tests 2 08/12/21 18:35: Immature Granulocyte % (Auto) 0.3, Neutrophils (%) (Auto) 75.1H, Lymphocytes (%) (Auto) 13.7L, Monocytes (%) (Auto) 6.9, Eosinophils (%) (Auto) 3.3H, Basophils (%) (Auto) 0.7, Neutrophils # (Auto) 4.6, Lymphocytes # (Auto) 0.8L, Monocytes # (Auto) 0.4, Eosinophils # (Auto) 0.2, Basophils # (Auto) 0.0, Nucleated Red Blood Cells % (auto) 0.0, Anion Gap 5L, Glomerular Filtration Rate 30.3L, Calcium Level 9.3, Total Bilirubin 0.3, Direct Bilirubin < 0.1, Aspartate Amino Transf (AST/SGOT) 20, Alanine Aminotransferase (ALT/SGPT) 25, Alkaline Phosphatase 211H, PH-Vkh-P-Type Natriuretic Peptide 1294H, Total Protein 6.1L, Albumin 2.8L, Albumin/Globulin Ratio 0.8L, Lipase 242, Thyroid Stimulating Hormone (TSH) 3.600, Coronavirus (COVID-19)(PCR) NEGATIVE, Influenza Type A (RT- PCR) NEGATIVE, Influenza Type B (RT-PCR) NEGATIVE, Respiratory Syncytial Virus (PCR) NEGATIVE 08/12/21 22:21: CBC/BMP Laboratory Tests 08/12/21 18:35 Home Medications Scheduled Amlodipine Besylate (Amlodipine Besylate) 5 Mg Tab, 5 MG PO DAILY Atorvastatin Calcium (Lipitor) 20 Mg Tab, 20 MG PO DAILY Clopidogrel Bisulfate (Plavix) 75 Mg Tab, 75 MG PO DAILY Losartan Potassium (Losartan Potassium) 50 Mg Tablet, 50 MG PO DAILY Omeprazole (Omeprazole) 40 Mg Cap, 40 MG PO DAILY Sennosides/Docusate Sodium (Senokot-S Tablet) 1 Tab Tab, 1 TAB PO BID Trazodone HCl (Trazodone HCl) 50 Mg Tablet, 50 MG PO QHS Scheduled PRN Albuterol Sulfate (Albuterol Sulfate Hfa) 8.5 Gm Hfa.aer.ad, 2 PUFFS INH Q4H PRN for SHORTNESS OF BREATH Allergies Coded Allergies: celecoxib (Unverified Adverse Reaction, Unknown, 03/14/20) piroxicam (Unverified Adverse Reaction, Unknown, 03/14/20) TIKA IRVIN MD Aug 12, 2021 23:26
[2021-08-12] MEDS ORDERED: MOM 30ML SUSPENSION UDC PO PRN (23:30)
[2021-08-12] MEDS ORDERED: ACETAMINOPHEN TAB 650MG DOSE (2X325MG) PO PRN (23:30)
--- OUTSIDE RECORDS SUMMARY | 2021-08-12 23:45 | CCD ---
Author Author [facility] Organization [facility] Address Unknown Phone Unavailable Support Name Relationship Address Phone RETIRED Next Of Kin Unknown RE Next Of Kin Unknown Unavailable CHRISTIANAKIKI Next Of Kin [address] [place] [address] Noah VILLEDA ECON [address] [place] [address] Re-disclosure Warning The records that [...] is protected by Article 27-F of the [facility] Public Health law. If you continue you may have access to information: Regarding HIV / AIDS; Provided by facilities licensed or operated by the [facility] Office of Mental Health; or Provided by the [facility] Office for People With Developmental Disabilities. If such information is present, then the following [facility] mandated warning applies: This information [...] law may result in a fine or shelter sentence or both. A general authorization for [...] Est Pt., Level [address] [place] [address] 04/25/2021 12:00:00 AM EDT eCW1 ([facility]) Unknown [address] [facility], [facility] [address] 04/25/2021 12:00:00 AM EDT eCW1 ([facility]) Outpatient [address] [facility] [address] 10/24/2020 12:00:00 AM EST eCW1 ([facility]) Unknown [address] [facility] [address] 09/12/2020 12:00:00 AM EST eCW1 ([facility]) Immunizations Vaccine Date Status Description Data Source(s) COVID-19 VACCINE [facility] 11/29/2020 12:00:00 AM EDT completed [facility] Vaccine Series Complete: YESThis Data wa s Submitted to [facility] Via [employer] COVID-19 VACCINE [facility] 11/08/2020 12:00:00 AM EST completed [facility] Vaccine Series Complete: NOThis Data was Submitted to [facility] Via [employer] Medications Medication Brand Name Start Date Product [...] {ml} active Megestrol Acetate 625 MG/5ML eCW1 ([facility]) Megestrol Acetate 125 MG/ML Oral Suspension Megestrol Acetate 625 MG/5ML Megestrol Acetate 625 MG/5ML 04/25/2021 12:00:00 AM EDT 5.0 {ml} active Megestrol Acetate 625 MG/5ML eCW1 ([facility]) 75 mg 02/02/2021 12:00:00 AM EDT tablet [...] type / Coverage type Policy ID Covered democrat ID Covered democrat's relationship to urias Policy Urias Plan Information [facility] 2 [id number] 1 [id number] MEDICARE 4 [id number] 1 [id number] A [facility] MEDICARE SOLUTIO 11 [id number] 1 [id number] [facility] MEDICARE COMPLETE G [id number] Self [id number] [facility] MEDICARE COMPLETE G [id number] Self [id number] [facility] (Medicare) Commercial [id number] Self [id number] ANS-Medicare Part B [id number] ANS-Medicare Part B [id number] ANSI-Medicare Part B [id number] ANSI-Medicare Part B [id number] MEDICARE COMPLETE-[facility] O [id number] S [id number] SELF PAY 2 UNAVAILABLE 1 UNAVAILA BLE MEDICARE COMPLETE [id number] SP [id number] MEDICARE COMPLETE [id number] SP [id number] MEDICARE COMPLETE [id number] SP [id number] MEDICARE COMPLETE [id number] SP [id number] ANSI-Medicare Part B [id number] ANSI-Medicare Part B [id number] ANSI-Medicare Part B [id number] Problems, Conditions, and Diagnoses Code Display Name [...] Never Smoker completed Never S moker eCW1 ([facility]) Smoking 04/25/2021 12:00:00 AM EDT Never Smoker completed Never S moker eCW1 ([facility]) Smoking 10/24/2020 12:00:00 AM EST Never Smoker completed Never S moker eCW1 ([facility]) Vital Signs ID Date Data Source UNK Name Value Range Interpretation Code Description Data Source(s) Body weight 99 [lb_av] 99 [lb_av] eCW1 ([facility]) Body weight 44.91 kg 44.91 kg eCW1 ([facility]) Body height 60 [in_i] 60 [in_i] eCW1 ([facility]) Body mass index (BMI) [Ratio] 19.33 kg/m2 19.33 kg/m2 W1 ([facility]) Heart rate 76 /min 76 /min eCW1 ([facility]) Respiratory rate 18 /min 18 /min eCW1 ([facility]) Body temperature 97.9 [degF] 97.9 [degF] eCW1 ( [facility]) Systolic blood pressure 108 mm[Hg] 108 mm[Hg] e CW1 ([facility]) Diastolic blood pressure 62 mm[Hg] 62 mm[Hg] eCW1 ([facility]) Body weight 108.8 [lb_av] 108.8 [lb_av] eCW1 ([facility]) Body height 60 [in_i] 60 [in_i] eCW1 ([facility]) Body mass index (BMI) [Ratio] 21.25 kg/m2 21.25 kg/m2 eCW1 ([facility]) Heart rate 81 /min 81 /min eCW1 ([facility]) Respiratory rate 18 /min 18 /min eCW1 ([facility]) Body temperature 98.5 [degF] 98.5 [degF] eCW1 ( [facility]) Systolic blood pressure 112 mm[Hg] 112 mm[Hg] e CW1 ([facility]) Diastolic blood pressure 66 mm[Hg] 66 mm[Hg] eCW1 ([facility]) Patient Treatment Plan of Care Planned Activity Planned Date Details Description Data Source (s) Megestrol Acetate 125 MG/ML Oral Suspension 04/25/2021 12:00:00 AM EDT eCW1 ([facility]) Megestrol Acetate 125 MG/ML Oral Suspension 04/25/2021 12:00:00 AM EDT eCW1 ([facility])
[2021-08-12 23:54] LABS: CALCIUM LEVEL 8.5 MG/DL (8.8-10.2); CREATININE FOR GFR 1.62 MG/DL (0.55-1.30); GLOMERULAR FILTRATION RATE 32.2 (>32); POTASSIUM SERUM 3.7 MEQ/L (3.5-5.1)
[2021-08-13] MEDS ORDERED: POTASSIUM CHLORIDE 10% LIQ 20 MEQ/15 ML UDC PO ONE (00:25)
[2021-08-13] MEDS: NS 0.45% 1,000 ML IV SCH ×2 (00:52→12:37)
[2021-08-13 00:59] LABS: APPEARANCE, URINE CLOUDY (CLEAR); BACTERIA, URINE AUTO 2+ (NEGATIVE); BILIRUBIN, URINE AUTO NEGATIVE (NEGATIVE); BLOOD, URINE BLOOD 3+ (NEGATIVE); COLOR, URINE YELLOW (YELLOW); GLUCOSE, URINE (UA) AUTO NEGATIVE (NEGATIVE); KETONE, URINE AUTO NEGATIVE (NEGATIVE); LEUKOCYTE ESTERASE, URINE AUTO 3+ (NEGATIVE); MUCUS, URINE SMALL (NEGATIVE); NITRITE, URINE AUTO POSITIVE (NEGATIVE); PROTEIN, URINE AUTO 1+ mg/dL (NEGATIVE); RBC, URINE AUTO 148 /HPF (0-3); SPECIFIC GRAVITY URINE AUTO 1.019 (1.002-1.035); SQUAMOUS EPITHELIAL CELL UR AU 2 /HPF (0-6); TRANSITIONAL EPITHELIAL AUTO 1 /HPF; WBC, URINE AUTO TNTC /HPF (0-3)
[2021-08-13 01:29] LABS: MAGNESIUM LEVEL 2.3 MG/DL (1.8-2.4)
[2021-08-13 01:36] VITALS: BP 120/57
[2021-08-13] MEDS ORDERED: KCL 10MEQ/100ML SWI (KRUN) 10 MEQ in IV 1 EA IV ONE (01:55)
[2021-08-13] MEDS: DOCUSATE SODIUM 100MG CAPSULE PO SCH ×3 (02:00→20:58)
[2021-08-13 04:00] VITALS: BP 128/69
[2021-08-13 05:50] LABS: HEMATOCRIT 26.8 % (36.0-47.0); HEMOGLOBIN 7.5 g/dl (12.0-15.5); MEAN CORPUSCULAR HEMOGLOBIN 29.6 pg (27.0-33.0); MEAN CORPUSCULAR VOLUME 105.9 fl (80.0-96.0); PLATELET COUNT, AUTOMATED 203 10^3/uL (150-450); RED BLOOD COUNT 2.53 10^6/uL (4.00-5.40); WHITE BLOOD COUNT 5.2 10^3/uL (4.0-10.0)
[2021-08-13 08:00] VITALS: BP 139/60
[2021-08-13 08:04] LABS: CALCIUM LEVEL 8.6 MG/DL (8.8-10.2); CREATININE FOR GFR 1.55 MG/DL (0.55-1.30); GLOMERULAR FILTRATION RATE 33.9 (>32); MAGNESIUM LEVEL 2.4 MG/DL (1.8-2.4); POTASSIUM SERUM 3.9 MEQ/L (3.5-5.1)
[2021-08-13] MEDS: OMEPRAZOLE 20 MG CAP PO SCH (09:00)
[2021-08-13] MEDS: HEPARIN SOD (PORCINE) 5000UNITS/ML 1ML VIAL/SYRINGE SC SCH ×2 (09:08→20:57)
[2021-08-13] MEDS: cefTRIAXone SOD 1 GM in D5W MINI-BAG PLUS 50 ML IV SCH (09:41)
[2021-08-13 09:51] LABS: CALCIUM LEVEL 8.4 MG/DL (8.8-10.2); CREATININE FOR GFR 1.6 MG/DL (0.55-1.30); GLOMERULAR FILTRATION RATE 32.7 (>32); PERCENT SATURATION 28.7 % (13.2-45.0); POTASSIUM SERUM 4.1 MEQ/L (3.5-5.1)
--- NOTE | 2021-08-13 10:35 | IPNPDOC ---
Text Note Date of Service The patient was seen on 08/13/21. NOTE Subjective: Patient is an 85-year-old female with a past medical history of d ementia who presented yesterday after a fall. Patient remained obtunded today. Her baseline mentation is unknown as is not in the room today. According to note from attending physician admitting overnight, the patient has baseline dementia but was able to ambulate slowly without assistive devices until a month ago. She stopped talking and lost her ability to mobilize a month ago. Patient was found to be hyponatremic with serum sodium level at 176 last night upon admission. Patient's repeat serum sodium level this a.m. is still 176. Nephrology was consulted yesterday, however I called nephrology again today who said that they will be seeing the patient today. Dr. Rosa was consulted while the patient was in the ER, and he stated that the patient does not need to be seen acutely because there is no indication for immediate surgery as the patient has low arm demand at this point. He stated that the patient can be seen in the outpatient setting in the office, on August 28 with him, and/or orthopedic surgery should be updated about the patient and the patient's 's wishes about possible surgical intervention in 7 days, or when the patient goes to rehabilitation. Objective: Vital signs: See below. General: Patient is awake and in no acute distress. She is lying in bed supine but positioned with her head at the left lateral bed and with her feet at the right lateral bed. She is staring off to the distance not making eye contact and not following any directions. She is nonverbal. Patient appears elderly, frail, cachectic, and sarcopenia. ENT: Sclera are clear. Mucosa is dry. Respiratory: Clear to auscultation bilaterally. No respiratory distress. No use of accessory muscles. On room air. Cardiovascular: Regular rate and rhythm. Gastrointestinal: Abdomen is soft, non distended, non tender, BS present. Musculoskeletal: mild dependent lower extremity edema. Right shoulder is not in a sling. Right shoulder appears edematous compared to left. There is ecchymosis at the sternal region. Neurologic: Unable to assess as patient is unable to follow directions. Skin: laceration located around her left eye, laterally. Assessment/Plan: Patient is an 85-year-old female with dementia who presents after a fall sustaining laceration to the face around the left eye, and a right humeral fracture involving the surgical neck. She is also incidentally found to have hypernatremia and UTI. #Hypernatremia Serum sodium: 175 on admission, 173 today Nephrology consulted, inpatient service team appreciates nephrology input Patient received 1 L bolus of normal saline in the ED Patient received half-normal saline at 80 mL/hr overnight. Continue half-normal saline at 80 mL/h, continue to reevaluate BMP every 4 hours Given the patient's cachectic body habitus, D5W will cause rapid correction at this time. Modulation of fluid and rate by nephrology team. #AUNG, likely secondary to dehydration Creatinine on admission 1.71, 1.6 today Continue IV fluids Continue to monitor BMP every 4 hours #UTI Urine culture pending Started ceftriaxone 1 g daily today #Right proximal humerus comminuted fracture Dr. Rosa was informed and has deferred operation at this time Medical optimization should occur first Decision for surgery should be made in approximately 1 to 2 weeks Patient can be seen in the orthopedic clinic on August 28, Dr. Rosa office clinic today Dr. Rosa would like an update when/if the patient goes to rehabilitation no the decision of whether pt would like surgery #Multiple falls Multifactorial complicated by advanced age and debility Patient also is cachectic and weak After patient is medically optimized, consider placement PT OT eval #Cachexia Dietary consult in place Continue Ensure 1 one-on-one feeding once patient has been evaluated by speech therapy BMI of 12.6 PT OT eval #Hypertension Hold antihypertensive medication home doses at this time (losartan and amlodipine). #Coronary artery disease history Patient is on Plavix, statin, beta-samreen, ARB, CCB in the outpatient setting Patient had a stent placed in 2012 according to PCP records. Continue Plavix at this time. DVT prophylaxis: Heparin 5000 units Disposition: Awaiting clinical improvement. VS,Fishbone, I+O VS, Fishbone, I+O Laboratory Tests 08/12/21 18:35 08/12/21 22:21 08/13/21 05:19 Vital Signs Date Time Temp Pulse Resp B/P (MAP) Pulse Ox O2 Delivery O2 Flow Rate FiO2 08/13/21 08:00 97.3 69 18 139/60 (86) 97 Room Air I&O- Last 24 Hours up to 6 AM 08/13/21 05:59 Intake Total 1160 ml Balance 1160 ml GME ATTESTATION GME ATTESTATION My faculty preceptor for this patient encounter was physically present during the encounter and was fully available. All aspects of the patient interview, examination, medical decision making process, and medical care plan development were reviewed and approved by the faculty preceptor. The faculty preceptor is aware and concurs with the plan as stated in the body of this note and will attest to such by his/her cosignature. ATTENDING NOTE I, Juan Luis Dunne MD, have independently examined this patient and performed my own physical exam, as well as reviewed the documentation and edited where necessary. I have discussed in detail with the resident / student the findings and plan of treatment as documented by the resident / student and edited their note. I agree with their findings and treatment plan and have edited their documentation. Steven Velásquez DO Aug 13, 2021 10:35 JUAN LUIS DUNNE MD Aug 16, 2021 13:07
[2021-08-13 12:00] VITALS: BP 132/60
[2021-08-13] MEDS: ATORVASTATIN 20 MG TAB PO SCH (12:36)
[2021-08-13] MEDS: CLOPIDOGREL 75 MG TAB PO SCH (12:36)
[2021-08-13 12:58] LABS: CALCIUM LEVEL 8.6 MG/DL (8.8-10.2); CREATININE FOR GFR 1.55 MG/DL (0.55-1.30); GLOMERULAR FILTRATION RATE 33.9 (>32); POTASSIUM SERUM 3.9 MEQ/L (3.5-5.1)
--- NOTE | 2021-08-13 15:23 | CR ---
NEPHROLOGY CONSULTATION DATE: 08/13/2021 REQUESTING CLINICIAN: Eliseo Steven MD. REASONS FOR CONSULTATION: 1. Hypernatremia. 2. Acute renal failure. HISTORY OF PRESENT ILLNESS: Ms. Ruff is an 85-year-old very frail female who was brought to the Emergency Room by her last night due to a fall at home. She had a laceration on her left forehead just above the eyebrow which has been sutured. In the Emergency Room she was noticed to have a fracture right humerus which her states is probably about a week ago when she fell. Patient is very emaciated and malnourished. She was found to have a sodium level of 175 in the Emergency Room. She was hypotensive due to which, the Emergency Room give her 1 liter of normal saline bolus and repeat sodium was 176. I was called by the admitting physician and I recommended half normal saline for I.V. fluid for hydration due to risk for too rapid correction with D5W. In any event an official consult for hypernatremia was called this morning and patient is seen in the Progressive Care Unit. PAST MEDICAL HISTORY: Patient is unable to provide any information. reported that she has hypertension and dementia which has worsened over the last several weeks. For a couple of weeks she has become non-verbal and not eating or drinking. She does have: 1. History of gastroesophageal reflux disease. 2. History of hyperlipidemia. No known history of coronary artery disease in the past. PAST SURGICAL HISTORY: Patient is unable to provide any information. FAMILY HISTORY: Not relevant and unobtainable. PERSONAL AND SOCIAL HISTORY: Patient lives with her . Her has been her caregiver. Her reports no alcohol or tobacco use. ALLERGIES: 1. CELECOXIB. 2. PIROXICAM. MEDICATIONS: Home medications include: 1. Amlodipine 5 mg daily. 2. Atorvastatin 20 mg daily. 3. Plavix 75 mg daily. 4. Losartan 50 mg daily. 5. Omeprazole 40 mg daily. 6. Senokot 1 tablet twice a day. 7. Trazodone 50 mg at bedtime. REVIEW OF SYSTEMS: Not possible and no other pertinent information is available. reports that she was able to walk a short distance in the house up to about a month ago; however, during the last 1 month she has become progressively weak and non-verbal. She had stopped eating and drinking for at least a couple of weeks. Apparently she had multiple falls at home and broke her right shoulder about a week ago; however, her did not seek any medical attention up until last night. PHYSICAL EXAMINATION: Emaciated and severely malnourished elderly female with laceration on her left forehead just above the eyebrow. She is moving her upper limbs, only the left limb as the right one is fractured and she is lying on it. Pupils are equal and reactive to light. Temperature 97.3 degrees Fahrenheit, heart rate 83 per minute and respiratory rate 18 per minute. Blood pressure 139/60 mmHg and oxygen saturation 97% on room air. Head: Laceration on the left forehead with sutures. Significant fat and muscle wasting on the face. Oral mucosa is dry and poor oral hygiene noted. Neck: Neck veins are not distended. Heart: Sounds are regular. Lungs: Clear to auscultation. Abdomen: Sunken, soft and bowel sounds are present. Extremities: Without any cyanosis or clubbing. Right upper extremity deformity due to humerus fracture is noticed. She had trace of ankle edema. Neurologically: She is non-verbal though her eyes are open. She was not able to answer any questions. LABORATORY DATA: Initial labs showed: WBC count 6.1, hemoglobin 9.4, hematocrit 33.5. Repeat hemoglobin is 7.5 and hematocrit 26.8 this morning and WBC count 5.2. Initial sodium was 175, a repeat sodium 176 and another one 176. BUN 68, creatinine 1.7 initially and most recent BUN 63 and creatinine 1.6. Most recent sodium is 173, potassium 4.1, chloride 146, CO2 23, calcium 8.4. Total protein 6.1 on admission and albumin 2.8. TSH level 3.6. Urinalysis showed too numerous to count WBCs and 148 RBCs. Urine sodium was 95 and urine osmolarity 716. PROBLEMS AND PLAN: 1. Hypernatremia: This is most likely related to dehydration as patient had no oral intake for a couple of weeks. We will continue with I.V. fluid hydration. Initially sodium did not improve as she received normal saline in the Emergency Room. Now she is getting half normal saline and sodium level has impression: to 173 from 176. I would not like to correct her sodium too rapidly and we will continue half normal saline for now. If her sodium does not come below 170 today then I will consider further hypotonic solution. 2. Acute renal failure: She is very dehydrated and we will need to hydrate her. I would like to give her fluid at least 80 mL per hour and continue to monitor urine output. For now we will continue with half normal saline as D5W with 80 mL per hour is likely to correct her sodium too rapidly. 3. Anemia: Patient looks quite anemic and likely to require transfusion. I feel that her hemoglobin and hematocrit is going to get worse with further hydration. I am going to order a CBC for his afternoon. Thank you for involving me in the care of Ms. Ruff. I will follow her along with you.
[2021-08-13 16:00] VITALS: BP 128/58
[2021-08-13 16:34] LABS: CALCIUM LEVEL 8.7 MG/DL (8.8-10.2); CREATININE FOR GFR 1.62 MG/DL (0.55-1.30); GLOMERULAR FILTRATION RATE 32.2 (>32); POTASSIUM SERUM 3.8 MEQ/L (3.5-5.1)
[2021-08-13 18:12] LABS: MAGNESIUM LEVEL 2.3 MG/DL (1.8-2.4); POTASSIUM SERUM 3.9 MEQ/L (3.5-5.1)
[2021-08-13 19:45] LABS: HEMATOCRIT 26.4 % (36.0-47.0); HEMOGLOBIN 7.4 g/dl (12.0-15.5); MEAN CORPUSCULAR HEMOGLOBIN 29.1 pg (27.0-33.0); MEAN CORPUSCULAR VOLUME 103.9 fl (80.0-96.0); PLATELET COUNT, AUTOMATED 189 10^3/uL (150-450); RED BLOOD COUNT 2.54 10^6/uL (4.00-5.40); WHITE BLOOD COUNT 6.7 10^3/uL (4.0-10.0)
[2021-08-13 19:48] VITALS: BP 134/85
[2021-08-13 20:16] LABS: CALCIUM LEVEL 8.5 MG/DL (8.8-10.2); CREATININE FOR GFR 1.93 MG/DL (0.55-1.30); GLOMERULAR FILTRATION RATE 26.3 (>32); POTASSIUM SERUM 3.9 MEQ/L (3.5-5.1)
[2021-08-14] VITALS (8 sets, daily range): BP systolic 118–157; BP diastolic 58–72
[2021-08-14 01:00] LABS: CALCIUM LEVEL 8.1 MG/DL (8.8-10.2); CREATININE FOR GFR 1.92 MG/DL (0.55-1.30); GLOMERULAR FILTRATION RATE 26.5 (>32); POTASSIUM SERUM 3.8 MEQ/L (3.5-5.1)
[2021-08-14 04:39] LABS: CALCIUM LEVEL 8.1 MG/DL (8.8-10.2); CREATININE FOR GFR 1.83 MG/DL (0.55-1.30); POTASSIUM SERUM 3.8 MEQ/L (3.5-5.1)
[2021-08-14 05:48] LABS: HEMOGLOBIN 7.2 g/dl (12.0-15.5); MEAN CORPUSCULAR HEMOGLOBIN 29.1 pg (27.0-33.0); MEAN CORPUSCULAR HGB CONC 27.7 g/dl (32.0-36.5); MEAN CORPUSCULAR VOLUME 105.3 fl (80.0-96.0); PLATELET COUNT, AUTOMATED 175 10^3/uL (150-450); RED BLOOD COUNT 2.47 10^6/uL (4.00-5.40); WHITE BLOOD COUNT 7.3 10^3/uL (4.0-10.0)
[2021-08-14 06:18] LABS: ALBUMIN 2.1 GM/DL (3.2-5.2); CALCIUM LEVEL 8.3 MG/DL (8.8-10.2); CREATININE FOR GFR 1.77 MG/DL (0.55-1.30); GLOMERULAR FILTRATION RATE 29.1 (>32); PHOSPHORUS LEVEL 2.2 MG/DL (2.5-4.9); POTASSIUM SERUM 3.7 MEQ/L (3.5-5.1)
--- NOTE | 2021-08-14 08:19 | IPNPDOC ---
Text Note Date of Service The patient was seen on 08/14/21. NOTE Subjective: Patient is an 85-year-old female with a past medical history of kimberley james who is on hospital day #2. Patient remains obtunded today. Her baseline mentation is unknown as is not in the room today. According to the patient's yesterday, the patient has baseline dementia but was able to ambulate slowly without assistive devices until a few months ago. She stopped talking and lost her ability to mobilize as well. This morning, the patient is actually making eye contact however remains nonverbal. I am unsure whether she understands what I am asking of her. She is not able to follow directions. Objective: Vital signs: See below. General: Patient is awake and in no acute distress. She is lying in bed supine but positioned with her head at the left lateral bed and with her feet at the right lateral bed. She is making eye contact today, but not following any directions. She is nonverbal. Patient appears elderly, frail, cachectic, and sarcopenia. ENT: Sclera are clear. Eyes are watering. Oral mucous membranes remain dry. Respiratory: Clear to auscultation bilaterally. No respiratory distress. No use of accessory muscles. On room air. Cardiovascular: Regular rate and rhythm. Gastrointestinal: Abdomen is soft, non distended, non tender, BS present. Musculoskeletal: mild dependent lower extremity edema. Right shoulder is in a sling. Right shoulder appears edematous compared to left, lesser than yesterday. There is ecchymosis at the sternal region. Neurologic: Unable to assess as patient is unable to follow directions. Skin: laceration located around her left eye, laterally, healing well. Assessment/Plan: Patient is an 85-year-old female with dementia who presents after a fall sustaining laceration to the face around the left eye, and a right humeral fracture involving the surgical neck. She is also incidentally found to have hypernatremia and UTI. #Hypernatremia Serum sodium: 175 on admission, 169 today Nephrology consulted, inpatient service team appreciates nephrology input Patient received 1 L bolus of normal saline in the ED Patient received half-normal saline at 80 mL/hr overnight. Continue half-normal saline at 80 mL/h, continue to reevaluate BMP every 4 hours Modulation of fluid and rate by nephrology team. #AUNG, likely secondary to dehydration Creatinine on admission 1.71, 1.77 today after a brief uptrend, so it is actually an improvement Continue IV fluids Continue to monitor BMP every 4 hours #UTI Urine culture pending Started ceftriaxone 1 g daily (Day #2) #Anemia unknown etiology Baseline hemoglobin 8.4 Hemoglobin today 7.2 Iron panel pending B12, folate acid ordered Partially dilutional as patient has been receiving IV fluids 1 unit of packed red cells ordered since patient's threshold is 8 due to history of CAD #Right proximal humerus comminuted fracture Dr. Rosa was informed and has deferred operation at this time Medical optimization should occur first Decision for surgery should be made in approximately 1 to 2 weeks Patient can be seen in the orthopedic clinic on August 28, Dr. Rosa office clinic today Dr. Rosa would like an update when/if the patient goes to rehabilitation no the decision of whether pt would like surgery #Multiple falls Multifactorial complicated by advanced age and debility Patient also is cachectic and weak After patient is medically optimized, consider placement PT OT eval #Cachexia Dietary consult in place Continue Ensure 1 one-on-one feeding once patient has been evaluated by speech therapy BMI of 12.6 PT OT eval #Hypertension Hold antihypertensive medication home doses at this time (losartan and amlodipine). #Coronary artery disease history Patient is on Plavix, statin, beta-samreen, ARB, CCB in the outpatient setting Patient had a stent placed in 2012 according to PCP records. Continue Plavix at this time, as risks outweigh the benefits, since swelling of the right shoulder is not increasing today. DVT prophylaxis: Heparin 5000 units Disposition: Awaiting clinical improvement. VS,Fishbone, I+O VS, Fishbone, I+O Laboratory Tests 08/13/21 08:38 08/13/21 11:50 08/13/21 15:19 08/13/21 16:58 08/13/21 19:27 08/13/21 23:35 08/14/21 03:43 08/14/21 05:11 Vital Signs Date Time Temp Pulse Resp B/P (MAP) Pulse Ox O2 Delivery O2 Flow Rate FiO2 08/14/21 04:00 98.0 73 17 132/63 (86) 94 Room Air I&O- Last 24 Hours up to 6 AM 08/14/21 06:00 Intake Total 2370 ml Output Total 900 ml Balance 1470 ml GME ATTESTATION GME ATTESTATION My faculty preceptor for this patient encounter was physically present during the encounter and was fully available. All aspects of the patient interview, examination, medical decision making process, and medical care plan development were reviewed and approved by the faculty preceptor. The faculty preceptor is aware and concurs with the plan as stated in the body of this note and will attest to such by his/her cosignature. ATTENDING NOTE I, Juan Luis Molina MD, have independently examined this patient and performed my own physical exam, as well as reviewed the documentation and edited where necessary. I have discussed in detail with the resident / student the findings and plan of treatment as documented by the resident / student and edited their note. I agree with their findings and treatment plan and have edited their documentation. Steven Velásquez DO Aug 14, 2021 08:19 JUAN LUIS MOLINA MD Aug 16, 2021 13:06
[2021-08-14] MEDS: D5W 1,000 ML IV SCH (08:51)
[2021-08-14] MEDS: HEPARIN SOD (PORCINE) 5000UNITS/ML 1ML VIAL/SYRINGE SC SCH ×2 (08:52→20:31)
[2021-08-14] MEDS: CLOPIDOGREL 75 MG TAB PO SCH (08:58)
[2021-08-14] MEDS: ATORVASTATIN 20 MG TAB PO SCH (08:58)
[2021-08-14] MEDS: OMEPRAZOLE 20 MG CAP PO SCH (08:59)
[2021-08-14] MEDS: DOCUSATE SODIUM 100MG CAPSULE PO SCH ×2 (09:00→20:31)
[2021-08-14] MEDS: cefTRIAXone SOD 1 GM in D5W MINI-BAG PLUS 50 ML IV SCH (09:07)
[2021-08-14 10:59] LABS: BLOOD UREA NITROGEN 60 MG/DL (7-18); CALCIUM LEVEL 8.7 MG/DL (8.8-10.2); CARBON DIOXIDE LEVEL 22 MEQ/L (21-32); CHLORIDE LEVEL 143 MEQ/L (98-107); CREATININE FOR GFR 1.65 MG/DL (0.55-1.30); GLOMERULAR FILTRATION RATE 31.6 (>32); GLUCOSE, FASTING 120 MG/DL (70-100); IRON (FE) 48 UG/DL (50-170); PERCENT SATURATION 32.4 % (13.2-45.0); POTASSIUM SERUM 3.5 MEQ/L (3.5-5.1); SODIUM LEVEL 169 MEQ/L (136-145); TOTAL IRON BINDING CAPACITY 148 UG/DL (250-450); VITAMIN B12 LEVEL > 2000 PG/ML (247-911)
[2021-08-14 12:29] LABS: CALCIUM LEVEL 8.6 MG/DL (8.8-10.2); CREATININE FOR GFR 1.72 MG/DL (0.55-1.30); GLOMERULAR FILTRATION RATE 30.1 (>32); POTASSIUM SERUM 3.6 MEQ/L (3.5-5.1)
--- NOTE | 2021-08-14 15:40 | ER ---
ER CONSULTATION DATE: 08/12/2021 CONSULTING SERVICE: Orthopedic Surgery. CONSULTING PHYSICIAN: KHLOE LOWRY MD HISTORY OF PRESENT ILLNESS: This is an 85-year-old female with a right proximal humerus fracture which does not involve the humeral head. The patient had a witnessed ground-level fall at home where she fell on her face sustaining two lacerations and the aforementioned right proximal humerus shaft fracture. The believes the patient sustained a fall one week prior where she sustained the proximal humerus fracture, however at the time the did realize she fractured her humerus. The patient does have significant past medical history. The patient has had increased baseline dementia and while she was able to walk without assistive devices at home, she became more nonverbal and lost her ability to effectively mobilize. Over the last two weeks, the has been carrying her around the house, feeding her himself and providing 24 hour supervision. Patient's states that she has been getting weaker and has not been eating or drinking much for the past several weeks. Patient was severely dehydrated and was admitted by the Hospitalist for treatment of her hydration issues. Orthopedic Surgery was consulted for further evaluation and treatment of her right upper extremity. PAST MEDICAL HISTORY: 1. Hypertension. 2. Dementia. 3. GERD. 4. Hyperlipidemia. SOCIAL HISTORY: Nondrinker, nonsmoker and non-IV drug user. She lives at home with her . FAMILY HISTORY: Unable to be obtained. ALLERGIES: Please see Internal Medicine note. REVIEW OF SYSTEMS: A 14 point review of systems was negative unless otherwise stated in the HPI above. PHYSICAL EXAMINATION: Patient was alert and oriented to person, time and place. She had moderate swelling and ecchymosis of her right shoulder. She was unable to effectively abduct or adduct her shoulder secondary to pain. She was, however spontaneously moving the musculature of the musculocutaneous, axillary, radial, median and ulnar nerve distributions. Sensation was not able to be evaluated to the musculocutaneous, axillary, radial, median and ulnar nerve distribution secondary to her nonverbal state. She had brisk capillary refill to the digits and palpable radial and ulnar pulse of the right upper extremity. RADIOGRAPHS: Radiographs demonstrate a proximal humerus shaft fracture which is transverse in nature with minimal comminution. This does not appear to involve the humeral head or the articular surface of the humeral head. CT scan confirms the above findings with a very proximal right humeral shaft fracture which is extraarticular in nature. It was transverse with minimal comminution. It was relatively largely displaced, however. IMPRESSION: An 85-year-old female with the aforementioned diagnosis. She was admitted for optimization and treated with a sling to stabilize her right proximal humerus fracture. PLAN: At this point in time, after talking to the Hospitalist Service, she will be admitted for optimization and to treat her dehydration. The patient's states that she does not use her right arm at baseline at this point in time and he is unsure if exposing her to the risk of surgery is worth the benefit. The plan at this point in time is to stabilize her right upper extremity with a sling and revisit the question if the patient is a candidate for a right proximal humeral shaft surgical intervention. She would be a candidate for either open reduction internal fixation or possible humeral nailing. If the patient's decides she needs surgery, given her medical status at this point in time as well as her extremely low demand, she may be a candidate for nonoperative treatment. However, this will be the discussion which will be revisited in one week when the patient is optimized. I have already talked to Dr. Steven and asked him to call us when she is discharged and we can have a repeat discussion with the and decide if surgery is something that the patient would be interested in.
--- NOTE | 2021-08-14 15:53 | IPNPDOC ---
Subjective Date Seen The patient was seen on 08/14/21. Subjective Chief Complaint/HPI SUBJECTIVE: Patient is seen and examined at bedside. She has dementia and is nonverbal at bedside. She makes good eye contact; however, unable to follow commands. OBJECTIVE: Vitals: see below GENERAL: Very frail looking, severely malnourished elderly female laying in bed. On RA satting 99%. NEUROLOGIC: Has baseline dementia and is nonverbal, not interactive nor conversational. HEENT: Head normocephalic, laceration on her left forehead just above the eyebrow with dried blood. Extraocular muscles are intact. Oral mucosa is dry. No significant adenopathy palpated. HEART: Sounds are regular, NS1, S2. Trace pitting edema in lower extr. There is no JVD appreciated LUNGS: Clear on auscultation although lack of respiratory effort. ABDOMEN: Soft, sunken. No guarding on palpation. Normal bowel sounds. EXTREMITIES/SKIN: Decreased skin tugor. Right upper extremity deformity due to humerus fracture is noticed and she has a preference for laying on that side. Severe muscle wasting throughout. No bruising, cyanosis, petechia, clubbing appreciated. IMPRESSION AND PLAN: 1. Hypovolemic Hypernatremia. This is likely in the setting of her dementia and decreased thirst drive and overall decreased PO intake for a couple of weeks now, according to her application support developer (). There may also be a component of hypovolemic hyperNa 2/2 to her urinary tract infection which primary team is treating with Rocephin. Patient had received a L bolus of NS in ER and fluids were switched to NS to replete her volume as she was in a 4.5 L of fluid deficit upon admission. Her sodium has trended down nicely. We want to avoid lowering her Na too fast to avoid osmotic demyelination syndrome. She has been adequately volume resucitated with 1/2 NS and we will switch her to D5W @50 cc/h and continue to closely monitor bmp q4h. 2. Acute renal failure. Likely secondary to renal hypoperfusion from underlying dementia and decreased thirst drive leading to severe dehydration and free water defecit.She has been fluid repleted with NS and has now switched to hypotonic solution D5W running at 50cc/h and we are hopeful her renal function may start to improve slowly. 3. Anemia. Patient is severely malnourished and looks quite pale. Even in the setting of severe dehydration her Hg remains relatively low. With fluid resuscitation, her Hg may continue to worsen and she may require to be transfused. VS, I&O, 24H, Fishbone Vital Signs/I&O Vital Signs Date Time Temp Pulse Resp B/P (MAP) Pulse Ox O2 Delivery O2 Flow Rate FiO2 08/14/21 15:09 98.6 72 18 134/60 97 Room Air I&O- Last 24 Hours up to 6 AM 08/14/21 06:00 Intake Total 2370 ml Output Total 900 ml Balance 1470 ml Laboratory Data 24H LABS Laboratory Tests 2 08/13/21 16:58: Magnesium Level 2.3 08/13/21 19:27: Nucleated Red Blood Cells % (auto) 0.0, Anion Gap 5L, Glomerular Filtration Rate 26.3L, Calcium Level 8.5L 08/13/21 23:35: Anion Gap 5L, Glomerular Filtration Rate 26.5L, Calcium Level 8.1L 08/14/21 03:43: Anion Gap 5L, Glomerular Filtration Rate 28.0L, Calcium Level 8.1L 08/14/21 05:11: Reticulocyte # (auto) 29.9, Nucleated Red Blood Cells % (auto) 0.0, Percent Reticulocyte Count 1.2, Reticulocyte Hemoglobin Equivalent 32.9, Anion Gap 4L, Glomerular Filtration Rate 29.1L, Calcium Level 8.3L, Phosphorus Level 2.2L, Albumin 2.1#L 08/14/21 09:30: Anion Gap 4L, Glomerular Filtration Rate 31.6L, Calcium Level 8.7L, Iron Level 48L, Total Iron Binding Capacity 148L, Transferrin % Saturation 32.4, Vitamin B12 Level > 2000H, Folate 7.0 08/14/21 11:39: Anion Gap 8, Glomerular Filtration Rate 30.1L, Calcium Level 8.6L CBC/BMP Laboratory Tests 08/13/21 16:58 08/13/21 19:27 08/13/21 23:35 08/14/21 03:43 08/14/21 05:11 08/14/21 09:30 08/14/21 11:39 Microbiology Microbiology 08/13/21 Urine Culture, Received Pending GME ATTESTATION GME ATTESTATION My faculty preceptor for this patient encounter was physically present during the encounter and was fully available. All aspects of the patient interview, examination, medical decision making process, and medical care plan development were reviewed and approved by the faculty preceptor. The faculty preceptor is aware and concurs with the plan as stated in the body of this note and will attest to such by his/her cosignature. Marry Henderson DO Aug 14, 2021 15:53
[2021-08-14 19:20] LABS: HEMATOCRIT 34.4 % (36.0-47.0); MEAN CORPUSCULAR HEMOGLOBIN 29.2 pg (27.0-33.0); MEAN CORPUSCULAR HGB CONC 29.1 g/dl (32.0-36.5); MEAN CORPUSCULAR VOLUME 100.6 fl (80.0-96.0); PLATELET COUNT, AUTOMATED 174 10^3/uL (150-450); RED BLOOD COUNT 3.42 10^6/uL (4.00-5.40); WHITE BLOOD COUNT 8.3 10^3/uL (4.0-10.0)
[2021-08-14 19:54] LABS: CALCIUM LEVEL 8.3 MG/DL (8.8-10.2); CREATININE FOR GFR 1.8 MG/DL (0.55-1.30); GLOMERULAR FILTRATION RATE 28.5 (>32)
[2021-08-15] VITALS: BP 144/64
[2021-08-15 01:25] LABS: CALCIUM LEVEL 8.6 MG/DL (8.8-10.2); CREATININE FOR GFR 1.5 MG/DL (0.55-1.30); GLOMERULAR FILTRATION RATE 35.2 (>32); POTASSIUM SERUM 3.6 MEQ/L (3.5-5.1)
[2021-08-15 04:00] VITALS: BP 142/68
[2021-08-15 06:01] LABS: HEMATOCRIT 29.3 % (36.0-47.0); HEMOGLOBIN 8.7 g/dl (12.0-15.5); MEAN CORPUSCULAR HGB CONC 29.7 g/dl (32.0-36.5); MEAN CORPUSCULAR VOLUME 97.7 fl (80.0-96.0); PLATELET COUNT, AUTOMATED 149 10^3/uL (150-450); WHITE BLOOD COUNT 9.3 10^3/uL (4.0-10.0)
[2021-08-15 06:29] LABS: CALCIUM LEVEL 8.2 MG/DL (8.8-10.2); CREATININE FOR GFR 1.45 MG/DL (0.55-1.30); GLOMERULAR FILTRATION RATE 36.6 (>32); PHOSPHORUS LEVEL 2.2 MG/DL (2.5-4.9); POTASSIUM SERUM 3.4 MEQ/L (3.5-5.1)
[2021-08-15 06:37] LABS: CK-MB VALUE MASS 4.4 NG/ML (<3.6); MB/CK RELATIVE INDEX 1.64 (< OR =4)
[2021-08-15] MEDS: D5W 1,000 ML IV SCH (07:34)
[2021-08-15 08:00] VITALS: BP 111/55
[2021-08-15] MEDS ORDERED: POTASSIUM CHLORIDE 10% LIQ 20 MEQ/15 ML UDC PO ONE (08:00)
[2021-08-15] MEDS: OMEPRAZOLE 20 MG CAP PO SCH (08:29)
[2021-08-15] MEDS: DOCUSATE SODIUM 100MG CAPSULE PO SCH ×2 (08:29→21:00)
[2021-08-15] MEDS: HEPARIN SOD (PORCINE) 5000UNITS/ML 1ML VIAL/SYRINGE SC SCH (08:37)
[2021-08-15] MEDS: CLOPIDOGREL 75 MG TAB PO SCH (08:37)
[2021-08-15] MEDS: ATORVASTATIN 20 MG TAB PO SCH (08:37)
--- NOTE | 2021-08-15 08:45 | IPNPDOC ---
Text Note Date of Service The patient was seen on 08/15/21. NOTE Subjective: Patient is an 85-year-old female with a past medical history of kimberley james who is on hospital day #3. According to the patient's , the patient has returned to her baseline mentation, which is that she is nonverbal, able to make eye contact, but unable to communicate. This morning, the patient is making eye contact however remains nonverbal. I am unsure whether she understands what I am asking of her. She is not able to follow directions. Nursing staff did not report any overnight events. Objective: Vital signs: See below. General: Patient is awake and in no acute distress. She is lying in bed supine. She is making eye contact today, but not following any directions. She is nonverbal. Patient appears elderly, frail, cachectic, and sarcopenia. ENT: Sclera are clear. Eyes are watering. Oral mucous membranes remain dry. Respiratory: Clear to auscultation bilaterally. No respiratory distress. No use of accessory muscles. On room air. Cardiovascular: Regular rate and rhythm. Gastrointestinal: Abdomen is soft, non distended, non tender, BS present. There are dry black flakes in the patient's diaper. Musculoskeletal: mild dependent lower extremity edema. Right shoulder is in a sling. Right shoulder appears edematous compared to left, lesser than yesterday. There is ecchymosis at the sternal region. Neurologic: Unable to assess as patient is unable to follow directions. Skin: laceration located around her left eye, laterally, healing well. Assessment/Plan: Patient is an 85-year-old female with dementia who presents after a fall sustaining laceration to the face around the left eye, and a right humeral fracture involving the surgical neck. She is also incidentally found to have hypernatremia and UTI. #Hypernatremia Serum sodium: 175 on admission, 166 today Nephrology consulted, inpatient service team appreciates nephrology input Patient received D5W overnight. Continue D5W at 50 mL/h, continue to reevaluate BMP every 4 hours Modulation of fluid and rate by nephrology team. #AUNG, likely secondary to dehydration Creatinine on admission 1.71, 1.45 today, so it is actually an improvement Continue IV fluids Continue to monitor BMP every 4 hours #UTI Urine culture pending Started ceftriaxone 1 g daily (Day #3) #Anemia unknown etiology Baseline hemoglobin 8.4 Hemoglobin today 8.7 Iron level is borderline low, TIBC is low. B12, folate acid wnl Partially dilutional as patient has been receiving IV fluids 1 unit of packed red cells administered on 08/14/2021 since patient's threshold is 8 due to history of CAD Patient's hemoglobin level after transfusion was 10, 08/15/2021 is 8.7 Stool occult specimen is negative This is likely secondary to a decreased response from the bone marrow as TIBC i s low and ferritin is low normal. This may be due to to decreased poor oral intake and generalized poor health. #Right proximal humerus comminuted fracture Dr. Rosa was informed and has deferred operation at this time Medical optimization should occur first Decision for surgery should be made in approximately 1 to 2 weeks Patient can be seen in the orthopedic clinic on August 28, Dr. Rosa office clinic today Dr. Rosa would like an update when/if the patient goes to rehabilitation no the decision of whether pt would like surgery #Multiple falls Multifactorial complicated by advanced age and debility Patient also is cachectic and weak After patient is medically optimized, consider placement PT OT eval #Cachexia Dietary consult in place Continue Ensure 1 one-on-one feeding once patient has been evaluated by speech therapy BMI of 12.6 PT OT eval #Hypertension Hold antihypertensive medication home doses at this time (losartan and amlodipine). #Coronary artery disease history Patient is on Plavix, statin, beta-samreen, ARB, CCB in the outpatient setting Patient had a stent placed in 2012 according to PCP records. Continue Plavix at this time, as risks outweigh the benefits, since swelling of the right shoulder is not increasing today. DVT prophylaxis: Stopped heparin due to possible GI bleed. Disposition: Awaiting clinical improvement. Pending assessment by physical therapy, patient may not be able to go to rehab. Patient may need to be placed. VS,Fishbone, I+O VS, Fishbone, I+O Laboratory Tests 08/14/21 09:30 08/14/21 11:39 08/14/21 19:11 08/15/21 00:15 08/15/21 05:40 Vital Signs Date Time Temp Pulse Resp B/P (MAP) Pulse Ox O2 Delivery O2 Flow Rate FiO2 08/15/21 04:00 97.3 65 16 142/68 (92) 92 Room Air I&O- Last 24 Hours up to 6 AM 08/15/21 06:00 Intake Total 1110 ml Output Total 200 ml Balance 910 ml GME ATTESTATION GME ATTESTATION My faculty preceptor for this patient encounter was physically present during the encounter and was fully available. All aspects of the patient interview, examination, medical decision making process, and medical care plan development were reviewed and approved by the faculty preceptor. The faculty preceptor is aware and concurs with the plan as stated in the body of this note and will attest to such by his/her cosignature. ATTENDING NOTE I, Juan Luis Molina MD, have independently examined this patient and performed my own physical exam, as well as reviewed the documentation and edited where necessary. I have discussed in detail with the resident / student the findings and plan of treatment as documented by the resident / student and edited their note. I agree with their findings and treatment plan and have edited their documentation. Steven Velásquez DO Aug 15, 2021 08:45 JUAN LUIS MOLINA MD Aug 16, 2021 13:06
[2021-08-15] MEDS: cefTRIAXone SOD 1 GM in D5W MINI-BAG PLUS 50 ML IV SCH (09:09)
--- NOTE | 2021-08-15 10:01 | ECGEPIP ---
[facility] - ED Test Date: 2021-08-12 Pat Name: KEYA VILLEDA Department: Room: [place] [address] Gender: Female Concrete Analyst: SP : [id number] Requested By: MEDHAT ZAIDI Order Number: [id number] Reading MD: Medhat Kendrick Measurements Intervals [place] Rate: 76 P: 88 ID: [id number] QRS: 66 QRSD: 68 T: 40 QT: 424 QTc: 477 Interpretive Statements Sinus rhythm with fusion complexes Nonspecific T wave abnormality Prolonged QTc interval Baseline artifact Decreased ecopty when compared to tracing done 03-19-18 Electronically Signed on 08-15-2021 10:00:59 EST by Medhat Kendrick
[2021-08-15 10:13] LABS: INR 0.98; PROTHROMBIN TIME 13.4 SECONDS (12.7-14.5)
[2021-08-15 10:29] LABS: CALCIUM LEVEL 8.4 MG/DL (8.8-10.2); CREATININE FOR GFR 1.44 MG/DL (0.55-1.30); GLOMERULAR FILTRATION RATE 36.9 (>32); POTASSIUM SERUM 4.1 MEQ/L (3.5-5.1)
--- NOTE | 2021-08-15 11:04 | IPNPDOC ---
Subjective Date Seen The patient was seen on 08/15/21. Subjective Chief Complaint/HPI SUBJECTIVE: Patient is seen and examined at bedside rounds. She has dementia and was nonverbal up since today. TShe ate 2 bowels of her food and looks more hydrated and nourished this morning. Has good eye contact and able to to mumble a few words when asked how she's feeling. OBJECTIVE: Vitals: see below, Wt up from 36kg to 48kg to date. GENERAL: Very frail looking, severely malnourished elderly female laying in bed. On RA satting 95%. NEUROLOGIC: Has baseline dementia and is nonverbal, not interactive nor conversational. HEENT: Head normocephalic, laceration on her left forehead just above the eyebrow with dried blood. Extraocular muscles are intact. Oral mucosa is dry. No significant adenopathy palpated. HEART: Sounds are regular, NS1, S2. Trace pitting edema in lower extr. There is no JVD appreciated LUNGS: Clear on auscultation although lack of respiratory effort. ABDOMEN: Soft, sunken. No guarding on palpation. Normal bowel sounds. EXTREMITIES/SKIN: Decreased skin tugor. Right upper extremity deformity due to humerus fracture is noticed and she has a preference for laying on that side. Severe muscle wasting throughout. No bruising, cyanosis, petechia, clubbing appreciated. IMPRESSION AND PLAN: 1. Hypovolemic Hypernatremia. This is likely in the setting of her dementia and decreased thirst drive and overall decreased PO intake for a couple of weeks now, according to her engineering technician (). There may also be a component of hypovolemic hyperNa 2/2 to her urinary tract infection which primary team is treating with Rocephin. Patient had received a L bolus of NS in ER and fluids were switched to NS to replete her volume as she was in a 4.5 L of fluid deficit upon admission. Her sodium has trended down nicely. We want to avoid lowering her Na too fast to avoid osmotic demyelination syndrome. She has been adequately volume resucitated with 1/2 NS and we will switch her to D5W @50 cc/h. Her sodium has stayed about the same with D5w and we will follow her noon time bmp to evaluate whether we should increase the rate of her fluids to 70cc/h. 2. Acute renal failure. Likely secondary to renal hypoperfusion from underlying dementia and decreased thirst drive leading to severe dehydration and free water defecit.She has been fluid repleted with NS and has now switched to hypotonic solution D5W running at 50cc/h and we are hopeful her renal function may start to improve slowly. 3. Anemia. Patient is severely malnourished and looks quite pale. Even in the setting of severe dehydration her Hg remains relatively low. With fluid resuscitation, her Hg may continue to worsen and she may require to be transfused. Continue to encourage her to increase her PO intake. VS, I&O, 24H, [facility] Vital Signs/I&O Vital Signs Date Time Temp Pulse Resp B/P (MAP) Pulse Ox O2 Delivery O2 Flow Rate FiO2 08/15/21 08:00 98.9 60 18 111/55 (73) 95 Room Air I&O- Last 24 Hours up to 6 AM 08/15/21 06:00 Intake Total 1110 ml Output Total 200 ml Balance 910 ml Laboratory Data 24H LABS Laboratory Tests 2 08/14/21 11:39: Anion Gap 8, Glomerular Filtration Rate 30.1L, Calcium Level 8.6L 08/14/21 19:11: Anion Gap 5L, Glomerular Filtration Rate 28.5L, Calcium Level 8.3L, Nucleated Red Blood Cells % (auto) 0.4H 08/15/21 00:15: Anion Gap 4L, Glomerular Filtration Rate 35.2, Calcium Level 8.6L 08/15/21 05:40: Anion Gap 5L, Glomerular Filtration Rate 36.6, Calcium Level 8.2L, Nucleated Red Blood Cells % (auto) 0.2H, Phosphorus Level 2.2L, Albumin 2.0L 08/15/21 05:57: Total Creatine Kinase 269H, Creatine Kinase MB 4.4H, Creatine Kinase MB Relative Index 1.64, Troponin I High Sensitivity 44.0, RC-Mhp-A-Type Natriuretic Peptide 2681H 08/15/21 09:46: Prothrombin Time 13.4, Prothromb Time International Ratio 0.98, Activated Partial Thromboplast Time 38.0, Anion Gap 7L, Glomerular Filtration Rate 36.9, Calcium Level 8.4L CBC/BMP Laboratory Tests 08/14/21 11:39 08/14/21 19:11 08/15/21 00:15 12/8/21 05:40 08/15/21 09:46 Microbiology Microbiology 08/15/21 Stool Occult Blood (CHERRY) - Final, Complete 08/13/21 Urine Culture - Final, Complete Escherichia Coli GME ATTESTATION GME ATTESTATION My faculty preceptor for this patient encounter was physically present during t he encounter and was fully available. All aspects of the patient interview, examination, medical decision making process, and medical care plan development were reviewed and approved by the faculty preceptor. The faculty preceptor is aware and concurs with the plan as stated in the body of this note and will attest to such by his/her cosignature. Marry Henderson DO Aug 15, 2021 11:04
[2021-08-15 12:00] VITALS: BP 130/64
[2021-08-15] MEDS: IRON POLYSAC (NIFEREX) 150 MG CAP PO SCH (14:03)
[2021-08-15 15:05] LABS: CALCIUM LEVEL 8.2 MG/DL (8.8-10.2); CREATININE FOR GFR 1.28 MG/DL (0.55-1.30); GLOMERULAR FILTRATION RATE 42.3 (>32); POTASSIUM SERUM 4.1 MEQ/L (3.5-5.1)
[2021-08-15 15:24] VITALS: BP 126/60
[2021-08-15 18:55] LABS: CALCIUM LEVEL 8.3 MG/DL (8.8-10.2); CREATININE FOR GFR 1.34 MG/DL (0.55-1.30); GLOMERULAR FILTRATION RATE 40.1 (>32); POTASSIUM SERUM 4.1 MEQ/L (3.5-5.1)
[2021-08-15 19:56] VITALS: BP 140/78
[2021-08-15] MEDS: HEPARIN SOD (PORCINE) 5000UNITS/ML 1ML VIAL/SYRINGE SQ SCH (22:04)
[2021-08-15 22:39] LABS: CALCIUM LEVEL 7.3 MG/DL (8.8-10.2); CREATININE FOR GFR 1.25 MG/DL (0.55-1.30); GLOMERULAR FILTRATION RATE 43.5 (>32); POTASSIUM SERUM 4.1 MEQ/L (3.5-5.1)
[2021-08-16] VITALS: BP 120/60
[2021-08-16 02:55] LABS: CALCIUM LEVEL 8.1 MG/DL (8.8-10.2); CREATININE FOR GFR 1.25 MG/DL (0.55-1.30); GLOMERULAR FILTRATION RATE 43.5 (>32); POTASSIUM SERUM 4.2 MEQ/L (3.5-5.1)
[2021-08-16 04:00] VITALS: BP 140/70
[2021-08-16 06:26] LABS: BASO % 0.1 % (0.0-1.0); EOS # 0.2 10^3/uL (0.0-0.5); EOS % 3.1 % (0.0-3.0); HEMATOCRIT 30.7 % (36.0-47.0); HEMOGLOBIN 9.2 g/dl (12.0-15.5); LYMPH # 1.3 10^3/uL (1.5-5.0); MEAN CORPUSCULAR HEMOGLOBIN 29.2 pg (27.0-33.0); MEAN CORPUSCULAR VOLUME 97.5 fl (80.0-96.0); MONO # 0.5 10^3/uL (0.0-0.8); MONO % 6.5 % (2.0-8.0); NEUTROPHILS # 5.6 10^3/uL (1.5-8.5); NEUTROPHILS % 72.3 % (36.0-66.0); PLATELET COUNT, AUTOMATED 139 10^3/uL (150-450); RED BLOOD COUNT 3.15 10^6/uL (4.00-5.40); WHITE BLOOD COUNT 7.8 10^3/uL (4.0-10.0)
[2021-08-16 06:49] LABS: CALCIUM LEVEL 8.2 MG/DL (8.8-10.2); CREATININE FOR GFR 1.19 MG/DL (0.55-1.30); POTASSIUM SERUM 4.1 MEQ/L (3.5-5.1)
[2021-08-16 07:39] VITALS: BP 160/69
--- NOTE | 2021-08-16 08:15 | IPNPDOC ---
Text Note Date of Service The patient was seen on 08/16/21. NOTE Subjective: Patient is an 85-year-old female with a past medical history of kimberley james who is on hospital day #4. According to the patient's , the patient has returned to her baseline mentation, which is that she is nonverbal, able to make eye contact, but unable to communicate. This morning, the patient is making eye contact however remains nonverbal. I am unsure whether she understands what I am asking of her. She is not able to follow directions. Nursing staff did not report any overnight events. Objective: Vital signs: See below. General: Patient is awake and in no acute distress. She is lying in bed supine. She is making eye contact today, but not following any directions. She is nonverbal. Patient appears elderly, frail, cachectic, and sarcopenia. ENT: Sclera are clear. Eyes are watering. Oral mucous membranes remain dry. Respiratory: Clear to auscultation bilaterally. No respiratory distress. No use of accessory muscles. On room air. Cardiovascular: Regular rate and rhythm. Gastrointestinal: Abdomen is soft, non distended, non tender, BS present. There are dry black flakes in the patient's diaper. Musculoskeletal: mild dependent lower extremity edema. Right shoulder is in a sling. Right shoulder appears edematous compared to left, lesser than yesterday. There is ecchymosis at the sternal region. Neurologic: Unable to assess as patient is unable to follow directions. Skin: laceration located around her left eye, laterally, healing well. Assessment/Plan: Patient is an 85-year-old female with dementia who presents after a fall sustaining laceration to the face around the left eye, and a right humeral fracture involving the surgical neck. She is also incidentally found to have hypernatremia and UTI. #Hypernatremia Serum sodium: 175 on admission, 159 today Nephrology consulted, inpatient service team appreciates nephrology input Patient received D5W overnight. Continue D5W at 50 mL/h, continue to reevaluate BMP every 4 hours Modulation of fluid and rate by nephrology team. #AUNG, likely secondary to dehydration Creatinine on admission 1.71, 1.19 today, so it is actually an improvement Continue IV fluids Continue to monitor BMP every 4 hours #UTI Urine culture pending Started ceftriaxone 1 g daily (Day #4) #Anemia unknown etiology Baseline hemoglobin 8.4 Hemoglobin today 8.7 Iron level is borderline low, TIBC is low. B12, folate acid wnl Partially dilutional as patient has been receiving IV fluids 1 unit of packed red cells administered on 08/14/2021 since patient's threshold is 8 due to history of CAD Stool occult specimen is negative Patient's hemoglobin level after transfusion was 10, 08/15/2021 was 8.7, and has improved back to 9.2 on 08/16/2021 This is likely secondary to a decreased response from the bone marrow as TIBC is low and ferritin is low normal. This may be due to to decreased poor oral intake and generalized poor health. #Right proximal humerus comminuted fracture Dr. Rosa was informed and has deferred operation at this time Medical optimization should occur first Decision for surgery should be made in approximately 1 to 2 weeks Patient can be seen in the orthopedic clinic on August 28, Dr. Rosa office clinic today Dr. Rosa would like an update when/if the patient goes to rehabilitation no the decision of whether pt would like surgery #Multiple falls Multifactorial complicated by advanced age and debility Patient also is cachectic and weak After patient is medically optimized, consider placement PT OT eval #Cachexia Dietary consult in place Continue Ensure 1 one-on-one feeding once patient has been evaluated by speech therapy BMI of 12.6 PT OT eval #Hypertension Hold antihypertensive medication home doses at this time (losartan and amlodipine). #Coronary artery disease history Patient is on Plavix, statin, beta-samreen, ARB, CCB in the outpatient setting Patient had a stent placed in 2012 according to PCP records. Continue Plavix at this time, as risks outweigh the benefits, since swelling of the right shoulder is not increasing today. DVT prophylaxis: Heparin subcutaneous. Disposition: Awaiting clinical improvement. Pt's family would like patient at home with help from elderly assistance. VS,Fishbone, I+O VS, Fishbone, I+O Laboratory Tests 08/15/21 09:46 08/15/21 14:18 08/15/21 17:51 08/15/21 21:57 08/16/21 01:47 08/16/21 05:51 Vital Signs Date Time Temp Pulse Resp B/P (MAP) Pulse Ox O2 Delivery O2 Flow Rate FiO2 08/16/21 07:39 97.7 65 22 160/69 (99) 98 Room Air I&O- Last 24 Hours up to 6 AM 08/16/21 06:00 Intake Total 450 ml Output Total 1025 ml Balance -575 ml GME ATTESTATION GME ATTESTATION My faculty preceptor for this patient encounter was physically present during the encounter and was fully available. All aspects of the patient interview, examination, medical decision making process, and medical care plan development were reviewed and approved by the faculty preceptor. The faculty preceptor is aware and concurs with the plan as stated in the body of this note and will attest to such by his/her cosignature. ATTENDING NOTE I, Juan Luis Molina MD, have independently examined this patient and performed my own physical exam, as well as reviewed the documentation and edited where necessary. I have discussed in detail with the resident / student the findings and plan of treatment as documented by the resident / student and edited their note. I agree with their findings and treatment plan and have edited their documentation. My addendum is below This is a 85-year-old female with right proximal humerus fracture not involving the humeral head the patient had a fall at home. She fell on her face sustaining 2 lacerations and this proximal humerus shaft fracture. The is the primary caregiver and as per him the patient has been having declining functionality and mental status over the last few months that to an extent she was eating very minimally and once she sustained this fall he brought her to the ER. The patient on presentation was extremely hyper natremia with a sodium of 159 which was secondary to severe dehydration and had an AUNG with a creatinine of 1.71 her baseline creatinine is around 1. She also had a UTI and for which she was started on Rocephin. The patient was seen by nephrology and suggested hypotonic fluids and she has been initially on half normal saline and now on D5W at 50 cc/h and her sodium has been slowly correcting at an expected rate and today is 159. Nephrology continues to see this patient. Her renal function has improved and is almost back to baseline. We did have a discussion with Ortho on admission with regards to the right proximal humerus fracture and as per them the patient would need to follow-up with them as an outpatient after discharge and depending upon the functionality they will decide whether the patient would require surgery. The patient has had multiple falls in the home and I had a detailed discussion with regarding a possibility of placement but apparently the patient's does not want patient to go to any facility. Dexter Kelly has evaluated the patient and as per PT the patient is not a candidate for any acute rehab. 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 She also got the iron panels done which showed that the patient has possibly early iron deficiency anemia for which she was started on oral supplementations. Her stool for occult blood was negative. Continue following nephrology recommendations Disposition possibly home once all acute medical issues are resolved. Steven Velásquez DO Aug 16, 2021 08:15 JUAN LUIS MOLINA MD Aug 16, 2021 13:05
[2021-08-16] MEDS: DOCUSATE SODIUM 100MG CAPSULE PO SCH ×2 (09:00→21:00)
[2021-08-16] MEDS: OMEPRAZOLE 20 MG CAP PO SCH (09:00)
[2021-08-16] MEDS: CLOPIDOGREL 75 MG TAB PO SCH (09:51)
[2021-08-16] MEDS: HEPARIN SOD (PORCINE) 5000UNITS/ML 1ML VIAL/SYRINGE SQ SCH ×2 (09:51→21:39)
[2021-08-16] MEDS: cefTRIAXone SOD 1 GM in D5W MINI-BAG PLUS 50 ML IV SCH (09:51)
[2021-08-16] MEDS: ATORVASTATIN 20 MG TAB PO SCH (09:51)
[2021-08-16] MEDS: IRON POLYSAC (NIFEREX) 150 MG CAP PO SCH (09:51)
[2021-08-16 10:30] LABS: CALCIUM LEVEL 8.2 MG/DL (8.8-10.2); CREATININE FOR GFR 1.14 MG/DL (0.55-1.30); GLOMERULAR FILTRATION RATE 48.3 (>32)
--- NOTE | 2021-08-16 11:33 | IPNPDOC ---
Subjective Date Seen The patient was seen on 08/16/21. Subjective Chief Complaint/HPI SUBJECTIVE: Patient is seen and examined at bedside rounds. She looks more hydrated and nourished and is sitting up in bed, eating with assistance from OT. Her peripheral IV in her L forearm is leaking and her bedsheets were soaked this morning. Have notified nursing to investigate and change if needed. She's able to answer some questions appropriately by nodding her head and more alert than previous days. OBJECTIVE: Vitals: see below, Wt up from 36kg to 42kg to date. GENERAL: Very frail looking, severely malnourished elderly female laying in bed. On RA satting 98%. NEUROLOGIC: Has baseline dementia and is nonverbal, not interactive nor conversational. HEENT: Head normocephalic, laceration on her left forehead just above the eyebrow with dried blood. Extraocular muscles are intact. Oral mucosa is dry. No significant adenopathy palpated. HEART: Sounds are regular, NS1, S2. Trace pitting edema in lower extr. There is no JVD appreciated LUNGS: Clear on auscultation although lack of respiratory effort. ABDOMEN: Soft, sunken. No guarding on palpation. Normal bowel sounds. EXTREMITIES/SKIN: Skin is cool and dry to touch. Right upper extremity deformity due to humerus fracture. Severe muscle wasting throughout. No bruising, cyanosis, petechia, clubbing appreciated. IMPRESSION AND PLAN: 1. Hypovolemic Hypernatremia. This is likely in the setting of her dementia and decreased thirst drive and overall decreased PO intake for a couple of weeks now, according to her music specialist (). There may also be a component of hypovolemic hyperNa 2/2 to her urinary tract infection which primary team is t reating with Rocephin. Patient had received a L bolus of NS in ER and fluids were switched to NS to replete her volume as she was in a 4.5 L of fluid deficit upon admission. Her sodium has trended down nicely. We want to avoid lowering her Na too fast to avoid osmotic demyelination syndrome. She may have had an IV infiltrated as fluids were leaking out from her peripheral line, so I would not be surprised if her Na stays around the same on repeat bmp. Nontheless, we will c/w D5W @50 cc/h and follow q4h bmp. 2. Acute renal failure. (resolved). Likely secondary to renal hypoperfusion from underlying dementia and decreased thirst drive leading to severe dehydration and free water defecit. She has been fluid repleted with NS and has now switched to hypotonic solution D5W running at 50cc/h which we will continue. 3. Anemia. Patient is severely malnourished and looks quite pale. There's a component of iron deficiency likely 2/2 to inadequate dietary intake. Even in the setting of severe dehydration her Hg remains relatively low. With fluid resuscitation, her Hg may continue to worsen and she may require to be transfused. Continue to encourage her to increase her PO intake and transition diet as tolerated. VS, I&O, 24H, Fishbone Vital Signs/I&O Vital Signs Date Time Temp Pulse Resp B/P (MAP) Pulse Ox O2 Delivery O2 Flow Rate FiO2 08/16/21 07:39 97.7 65 22 160/69 (99) 98 Room Air I&O- Last 24 Hours up to 6 AM 08/16/21 06:00 Intake Total 450 ml Output Total 1025 ml Balance -575 ml Laboratory Data 24H LABS Laboratory Tests 2 08/15/21 14:18: Anion Gap 6L, Glomerular Filtration Rate 42.3, Calcium Level 8.2L 08/15/21 17:51: Anion Gap 6L, Glomerular Filtration Rate 40.1, Calcium Level 8.3L 08/15/21 21:57: Anion Gap 6L, Glomerular Filtration Rate 43.5, Calcium Level 7.3L 08/16/21 01:47: Anion Gap 6L, Glomerular Filtration Rate 43.5, Calcium Level 8.1L 08/16/21 05:51: Immature Granulocyte % (Auto) 1.0, Neutrophils (%) (Auto) 72.3H, Lymphocytes (%) (Auto) 17.0L, Monocytes (%) (Auto) 6.5, Eosinophils (%) (Auto) 3.1H, Basophils (%) (Auto) 0.1, Neutrophils # (Auto) 5.6, Lymphocytes # (Auto) 1.3L, Monocytes # (Auto) 0.5, Eosinophils # (Auto) 0.2, Basophils # (Auto) 0.0, Nucleated Red Blood Cells % (auto) 0.0, Anion Gap 5L, Glomerular Filtration Rate 46.0, Calcium Level 8.2L 08/16/21 09:53: Anion Gap 5L, Glomerular Filtration Rate 48.3, Calcium Level 8.2L CBC/BMP Laboratory Tests 08/15/21 14:18 08/15/21 17:51 08/15/21 21:57 08/16/21 01:47 08/16/21 05:51 08/16/21 09:53 Microbiology Microbiology 08/15/21 Stool Occult Blood (CHERRY) - Final, Complete 08/13/21 Urine Culture - Final, Complete Escherichia Coli GME ATTESTATION GME ATTESTATION My faculty preceptor for this patient encounter was physically present during the encounter and was fully available. All aspects of the patient interview, examination, medical decision making process, and medical care plan development were reviewed and approved by the faculty preceptor. The faculty preceptor is a tinoco and concurs with the plan as stated in the body of this note and will attest to such by his/her cosignature. Marry Henderson DO Aug 16, 2021 11:33
[2021-08-16 12:00] VITALS: BP 142/66
[2021-08-16] MEDS: D5W 1,000 ML IV SCH (13:22)
[2021-08-16 14:57] LABS: CREATININE FOR GFR 1.12 MG/DL (0.55-1.30); GLOMERULAR FILTRATION RATE 49.3 (>32); POTASSIUM SERUM 3.9 MEQ/L (3.5-5.1)
[2021-08-16 16:53] VITALS: BP 151/66
[2021-08-16 18:31] LABS: CALCIUM LEVEL 8.5 MG/DL (8.8-10.2); CREATININE FOR GFR 1.09 MG/DL (0.55-1.30); GLOMERULAR FILTRATION RATE 50.9 (>32)
[2021-08-16 20:00] VITALS: BP 159/64
[2021-08-16 22:48] LABS: CALCIUM LEVEL 8.7 MG/DL (8.8-10.2); CREATININE FOR GFR 1.1 MG/DL (0.55-1.30); GLOMERULAR FILTRATION RATE 50.4 (>32)
[2021-08-17] VITALS: BP 150/66
[2021-08-17 04:00] VITALS: BP 142/68
[2021-08-17 04:08] LABS: BASO % 0.3 % (0.0-1.0); EOS # 0.2 10^3/uL (0.0-0.5); EOS % 3.6 % (0.0-3.0); HEMOGLOBIN 8.4 g/dl (12.0-15.5); LYMPH # 1.4 10^3/uL (1.5-5.0); LYMPH % 21.7 % (24.0-44.0); MEAN CORPUSCULAR HEMOGLOBIN 29.4 pg (27.0-33.0); MEAN CORPUSCULAR VOLUME 97.9 fl (80.0-96.0); MONO # 0.5 10^3/uL (0.0-0.8); MONO % 7.9 % (2.0-8.0); NEUTROPHILS # 4.2 10^3/uL (1.5-8.5); PLATELET COUNT, AUTOMATED 142 10^3/uL (150-450); RED BLOOD COUNT 2.86 10^6/uL (4.00-5.40); WHITE BLOOD COUNT 6.3 10^3/uL (4.0-10.0)
[2021-08-17 04:29] LABS: CALCIUM LEVEL 8.6 MG/DL (8.8-10.2); CREATININE FOR GFR 1.1 MG/DL (0.55-1.30); GLOMERULAR FILTRATION RATE 50.4 (>32); POTASSIUM SERUM 3.7 MEQ/L (3.5-5.1)
[2021-08-17 08:40] LABS: CALCIUM LEVEL 8.4 MG/DL (8.8-10.2); CREATININE FOR GFR 1.1 MG/DL (0.55-1.30); GLOMERULAR FILTRATION RATE 50.4 (>32); POTASSIUM SERUM 3.9 MEQ/L (3.5-5.1)
[2021-08-17 08:55] VITALS: BP 141/79
[2021-08-17] MEDS: cefTRIAXone SOD 1 GM in D5W MINI-BAG PLUS 50 ML IV SCH (10:12)
[2021-08-17] MEDS: HEPARIN SOD (PORCINE) 5000UNITS/ML 1ML VIAL/SYRINGE SQ SCH ×2 (10:12→21:31)
[2021-08-17] MEDS: OMEPRAZOLE 20 MG CAP PO SCH ×2 (10:13→10:29)
[2021-08-17] MEDS: CLOPIDOGREL 75 MG TAB PO SCH (10:13)
[2021-08-17] MEDS: ATORVASTATIN 20 MG TAB PO SCH (10:13)
[2021-08-17] MEDS: IRON POLYSAC (NIFEREX) 150 MG CAP PO SCH (10:14)
[2021-08-17] MEDS: DOCUSATE SODIUM 100MG CAPSULE PO SCH ×2 (10:14→21:00)
--- NOTE | 2021-08-17 10:24 | IPNPDOC ---
Text Note Date of Service The patient was seen on 08/17/21. NOTE Subjective: Patient is an 85-year-old female with a past medical history of dementia who is on hospital day #5. According to the patient's , the patient has returned to her baseline mentation, which is that she is nonverbal, able to make eye contact, but unable to communicate. This morning, the patient is making eye contact however remains nonverbal. I am unsure whether she understands what I am asking of her. She is not able to follow directions. Nursing staff did not report any overnight events. Objective: Vital signs: See below. General: Patient is awake and in no acute distress. She is lying in bed supine. She is making eye contact today, but not following any directions. She is nonverbal. Patient appears elderly, frail, cachectic, and sarcopenic. ENT: Sclera are clear. Eyes are watering. Oral mucous membranes remain dry. Respiratory: Clear to auscultation bilaterally. No respiratory distress. No use of accessory muscles. On room air. Cardiovascular: Regular rate and rhythm. Gastrointestinal: Abdomen is soft, non distended, non tender, BS present. There are dry black flakes in the patient's diaper. Musculoskeletal: mild dependent lower extremity edema. Right shoulder is in a sling. Right shoulder appears edematous compared to left, lesser than yesterday. There is ecchymosis at the sternal region, that has decreased since yesterday. Neurologic: Unable to assess as patient is unable to follow directions. Skin: laceration located around her left eye, laterally, healing well. Assessment/Plan: Patient is an 85-year-old female with dementia who presents after a fall sustaining laceration to the face around the left eye, and a right humeral fracture involving the surgical neck. She is also incidentally found to have hypernatremia and UTI. #Hypernatremia Serum sodium: 175 on admission, 155 today Nephrology consulted, inpatient service team appreciates nephrology input Patient received D5W overnight. Continue D5W, continue to reevaluate base metabolic profile once a day and try to push oral fluids as much as possible. Modulation of fluid and rate by nephrology team. #AUNG, likely secondary to dehydration Creatinine on admission 1.71, 1.19 today, so it is actually an improvement Continue IV fluids Continue to monitor BMP every 4 hours #UTI Urine culture pending Continue ceftriaxone 1 g daily (Day #5) #Anemia unknown etiology Baseline hemoglobin 8.4 Hemoglobin today 8.4 Iron level is borderline low, TIBC is low. B12, folate acid wnl Partially dilutional as patient has been receiving IV fluids 1 unit of packed red cells administered on 08/14/2021 since patient's threshold is 8 due to history of CAD Stool occult specimen is negative Patient's hemoglobin level after transfusion was 10, 08/15/2021 was 8.7, and has improved back to 9.2 on 08/16/2021 This is likely secondary to a decreased response from the bone marrow as TIBC is low and ferritin is low normal. This may be due to to decreased poor oral intake and generalized poor health. #Right proximal humerus comminuted fracture Dr. Rosa was informed and has deferred operation at this time Medical optimization should occur first Decision for surgery should be made in approximately 1 to 2 weeks Patient can be seen in the orthopedic clinic on August 28, Dr. Rosa office clinic today Dr. Rosa would like an update when/if the patient goes to rehabilitation no the decision of whether pt would like surgery #Multiple falls Multifactorial complicated by advanced age and debility Patient also is cachectic and weak After patient is medically optimized, consider sending home with assistance PT OT eval #Cachexia Dietary consult in place Continue Ensure 1 one-on-one feeding once patient has been evaluated by speech therapy BMI of 12.6 PT OT eval #Hypertension Hold antihypertensive medication home doses at this time (losartan and amlodipine). #Coronary artery disease history Patient is on Plavix, statin, beta-samreen, ARB, CCB in the outpatient setting Patient had a stent placed in 2012 according to PCP records. Continue Plavix at this time, as risks outweigh the benefits, since swelling of the right shoulder is not increasing today. DVT prophylaxis: Heparin subcutaneous. Disposition: Awaiting clinical improvement. Pt's family would like patient at home with help from elderly assistance. VS,Scottbone, I+O VS, Scottbone, I+O Laboratory Tests 08/16/21 14:20 08/16/21 17:55 08/16/21 22:09 08/17/21 03:38 08/17/21 07:55 Vital Signs Date Time Temp Pulse Resp B/P (MAP) Pulse Ox O2 Delivery O2 Flow Rate FiO2 08/17/21 08:55 98.5 64 16 141/79 (99) 95 Room Air I&O- Last 24 Hours up to 6 AM 08/17/21 06:00 Intake Total 750 ml Output Total 700 ml Balance 50 ml GME ATTESTATION GME ATTESTATION My faculty preceptor for this patient encounter was physically present during the encounter and was fully available. All aspects of the patient interview, examination, medical decision making process, and medical care plan development were reviewed and approved by the faculty preceptor. The faculty preceptor is aware and concurs with the plan as stated in the body of this note and will attest to such by his/her cosignature. ATTENDING NOTE I, Jonathon Sanders DO, have independently examined this patient and performed my own physical exam, as well as reviewed the documentation and edited where necessary. I have discussed in detail with the resident the findings and plan of treatment as documented by the resident and edited their note. I agree with their findings and treatment plan and have edited their documentation. I will continue to follow the patient during this hospital stay. Steven Velásquez DO Aug 17, 2021 10:24 JONATHON SANDERS DO Aug 17, 2021 17:01
--- NOTE | 2021-08-17 11:11 | IPNPDOC ---
Subjective Date Seen The patient was seen on 08/17/21. Subjective Chief Complaint/HPI SUBJECTIVE: Patient is seen and examined at bedside rounds. She looks more hydrated and nourished and is sitting up in bed. Per nursing, she ate about 25% of her food. She still has not had enough p.o. liquid intake and currently still on the thickened fluids. She had about 4 ounces this morning. She's able to answer questions appropriately today with appropriate and audible words, which is an improvement from previous days. Her sodium this morning is 153. Her bmp can be checked daily OBJECTIVE: Vitals: see below, Wt up from 36kg to 41 kg to date. GENERAL: Very frail looking, severely malnourished elderly female laying in bed. On RA satting in 95%. NEUROLOGIC: Interactive and able to answer simple questions today. More alert than previous days HEENT: Head normocephalic, laceration on her left forehead just above the eyebrow is healing well. Extraocular muscles are intact. Oral mucosa is somewhat dry. No significant adenopathy palpated. HEART: Sounds are regular, NS1, S2. Trace pitting edema in lower extr. There is no JVD appreciated LUNGS: Clear on auscultation although lack of respiratory effort. ABDOMEN: Soft, sunken. No guarding on palpation. Normal bowel sounds. EXTREMITIES/SKIN: Skin is cool and dry to touch. Right upper extremity deformity due to humerus fracture currently has a sling over it. Severe muscle wasting throughout. No bruising, cyanosis, petechia, clubbing appreciated. IMPRESSION AND PLAN: 1. Hypovolemic Hypernatremia. This is likely in the setting of her dementia and decreased thirst drive and overall decreased PO intake for a couple of weeks now, according to her shirring machine operator (). There may also be a component of hypovolemic hyperNa 2/2 to her urinary tract infection which primary team is treating with Rocephin. Patient had received a L bolus of NS in ER and fluids were switched to NS to replete her volume as she was in a 4.5 L of fluid deficit upon admission. Her sodium has trended down nicely. We want to avoid lowering her Na too fast to avoid osmotic demyelination syndrome. At this point we will continue with her D5W at 50 cc/h. She cannot tolerate being off of IV fluids as she cannot tolerate sufficient amount of p.o. fluids still. Primary team has consulted [facility] for possible home health which she will need after discharge. Her BMP can be decreased to daily instead of q4h. 2. Acute renal failure. (resolved). Likely secondary to renal hypoperfusion from underlying dementia and decreased thirst drive leading to severe dehydration and free water defecit. She has been fluid repleted with NS and has now switched to hypotonic solution D5W running at 50cc/h which we will continue. 3. Anemia. Patient is severely malnourished and looks quite pale. There's a component of iron deficiency likely 2/2 to inadequate dietary intake. Even in the setting of severe dehydration her Hg remains relatively low. With fluid resuscitation, her Hg may continue to worsen and she may require to be transfused. Continue to encourage her to increase her PO intake and transition diet as tolerated. VS, I&O, 24H, Fishbone Vital Signs/I&O Vital Signs Date Time Temp Pulse Resp B/P (MAP) Pulse Ox O2 Delivery O2 Flow Rate FiO2 08/17/21 08:55 98.5 64 16 141/79 (99) 95 Room Air I&O- Last 24 Hours up to 6 AM 08/17/21 06:00 Intake Total 750 ml Output Total 700 ml Balance 50 ml Laboratory Data 24H LABS Laboratory Tests 2 08/16/21 14:20: Anion Gap 5L, Glomerular Filtration Rate 49.3, Calcium Level 9.0 08/16/21 17:55: Anion Gap 5L, Glomerular Filtration Rate 50.9, Calcium Level 8.5L 08/16/21 22:09: Anion Gap 6L, Glomerular Filtration Rate 50.4, Calcium Level 8.7L 08/17/21 03:38: Anion Gap 5L, Glomerular Filtration Rate 50.4, Calcium Level 8.6L, Immature Granulocyte % (Auto) 0.5, Neutrophils (%) (Auto) 66.0, Lymphocytes (%) (Auto) 21.7L, Monocytes (%) (Auto) 7.9, Eosinophils (%) (Auto) 3.6H, Basophils (%) (Auto) 0.3, Neutrophils # (Auto) 4.2, Lymphocytes # (Auto) 1.4L, Monocytes # (Auto) 0.5, Eosinophils # (Auto) 0.2, Basophils # (Auto) 0.0, Nucleated Red Blood Cells % (auto) 0.0 08/17/21 07:55: Anion Gap 6L, Glomerular Filtration Rate 50.4, Calcium Level 8.4L CBC/BMP Laboratory Tests 08/16/21 14:20 08/16/21 17:55 08/16/21 22:09 08/17/21 03:38 08/17/21 07:55 Microbiology Microbiology 08/15/21 Stool Occult Blood (CHERRY) - Final, Complete 08/13/21 Urine Culture - Final, Complete Escherichia Coli GME ATTESTATION GME ATTESTATION My faculty preceptor for this patient encounter was physically present during the encounter and was fully available. All aspects of the patient interview, examination, medical decision making process, and medical care plan development were reviewed and approved by the faculty preceptor. The faculty preceptor is aware and concurs with the plan as stated in the body of this note and will attest to such by his/her cosignature. Marry Henderson DO Aug 17, 2021 11:11
[2021-08-17 11:57] VITALS: BP 153/65
[2021-08-17 12:53] LABS: CREATININE FOR GFR 1.09 MG/DL (0.55-1.30); GLOMERULAR FILTRATION RATE 50.9 (>32); POTASSIUM SERUM 3.9 MEQ/L (3.5-5.1)
[2021-08-17] MEDS: D5W 1,000 ML IV SCH ×2 (15:35→16:05)
[2021-08-17 16:00] VITALS: BP 137/71
[2021-08-17 20:00] VITALS: BP 155/68
[2021-08-18] VITALS (13 sets, daily range): BP systolic 125–161; BP diastolic 57–86
[2021-08-18 07:27] LABS: BASO % 0.3 % (0.0-1.0); EOS # 0.2 10^3/uL (0.0-0.5); EOS % 2.8 % (0.0-3.0); HEMATOCRIT 25.9 % (36.0-47.0); HEMOGLOBIN 7.8 g/dl (12.0-15.5); LYMPH # 0.9 10^3/uL (1.5-5.0); LYMPH % 15.1 % (24.0-44.0); MEAN CORPUSCULAR HEMOGLOBIN 29.5 pg (27.0-33.0); MEAN CORPUSCULAR HGB CONC 30.1 g/dl (32.0-36.5); MEAN CORPUSCULAR VOLUME 98.1 fl (80.0-96.0); MONO # 0.4 10^3/uL (0.0-0.8); NEUTROPHILS # 4.6 10^3/uL (1.5-8.5); NEUTROPHILS % 74.3 % (36.0-66.0); PLATELET COUNT, AUTOMATED 141 10^3/uL (150-450); RED BLOOD COUNT 2.64 10^6/uL (4.00-5.40); WHITE BLOOD COUNT 6.2 10^3/uL (4.0-10.0)
[2021-08-18 08:00] LABS: BLOOD UREA NITROGEN 30 MG/DL (7-18); CALCIUM LEVEL 7.8 MG/DL (8.8-10.2); CARBON DIOXIDE LEVEL 23 MEQ/L (21-32); CHLORIDE LEVEL 121 MEQ/L (98-107); CREATININE FOR GFR 0.91 MG/DL (0.55-1.30); GLOMERULAR FILTRATION RATE > 60.0 (>32); GLUCOSE, FASTING 94 MG/DL (70-100); POTASSIUM SERUM 3.8 MEQ/L (3.5-5.1); SODIUM LEVEL 150 MEQ/L (136-145)
[2021-08-18] MEDS: OMEPRAZOLE 20 MG CAP PO SCH ×2 (09:00→09:40)
[2021-08-18] MEDS: CLOPIDOGREL 75 MG TAB PO SCH ×2 (09:00→09:41)
[2021-08-18] MEDS: IRON POLYSAC (NIFEREX) 150 MG CAP PO SCH ×2 (09:00→09:40)
[2021-08-18] MEDS: DOCUSATE SODIUM 100MG CAPSULE PO SCH ×2 (09:00→21:00)
[2021-08-18] MEDS: ATORVASTATIN 20 MG TAB PO SCH ×2 (09:00→09:40)
[2021-08-18] MEDS: HEPARIN SOD (PORCINE) 5000UNITS/ML 1ML VIAL/SYRINGE SQ SCH ×2 (09:40→20:24)
--- NOTE | 2021-08-18 11:01 | IPN ---
NEPHROLOGY PROGRESS NOTE DATE: 08/18/2021 SUBJECTIVE: Miss King was seen and examined this morning at the bedside. She does not communicate with me today. She made eye contact but did not answer any questions. She was not able to state her name for me. She did not reliably follow any directions. There were no acute overnight events reported but hemoglobin is downtrending 7.8 on the latest labs and the patient is pending one unit packed red blood cells transfusion. Oral intake remains very poor. She continues on IV fluid hydration and is saturating well on room air and is afebrile and hemodynamically stable. OBJECTIVE: PHYSICAL EXAMINATION: VITAL SIGNS: Temperature 98.4, pulse 70, respiratory rate 16, blood pressure 125/57, saturating 95% on room air. Weight in the bed scale today is 41.3 kg. GENERAL APPEARANCE: The patient is seen, elderly lady, making eye contact but not communicative, not following directions, looks frail and lethargic. HEENT: Tongue is dry. NECK: Supple. Jugular veins are not elevated. LUNGS: Symmetric air movement, no accessory muscle use. The patient looks comfortable on room air. HEART: Sounds are regular, S1, S2. ABDOMEN: Soft and nontender. EXTREMITIES: She has compression stockings on the legs. There is muscle wasting that is noted. NEUROLOGICAL: The patient is awake and makes eye contact but does not speak or follow commands. LABORATORY STUDIES: White count 6.2, hemoglobin 7.8, platelet count 141. Sodium 150, potassium 3.8, bicarbonate 23, BUN 30, creatinine 0.9. INPATIENT MEDICATIONS: The patient continues on D5W at 50 mL an hour. PROBLEMS: 1. Hyperosmolar hypernatremia serum sodium was 175 on admission 6 days ago and is now 150. The patient has very poor and suboptimal oral intake. She continues on D5W and I made no change to the IV fluids today. Her sodium level continues to slowly correct and she still has a mild free water deficit. 2. Resolving acute kidney injury blood urea nitrogen has come down from 68 on admission down to 30 today, and creatinine has likewise improved from 1.9 at its peak down to 0.9 today. Continue with hypotonic fluid given free water deficit and inadequate oral hydration. 3. Anemia - The patient is on oral iron supplementation her iron stores, B-12 and folate level are noted. Hemoglobin has downtrended to 7.8 and the patient is being transfused packed red blood cells. She also continues on Prilosec.
--- NOTE | 2021-08-18 15:04 | IPNPDOC ---
Subjective Date Seen The patient was seen on 08/18/21. Subjective Chief Complaint/HPI Patient is examined at bedside. Patient is alert and opens her eyes spontaneously. She moves her extremities spontaneously with right upper extr emity in sling. Patient does not answer any question thus limited HPI and ROS was able to be obtained General: Reports: ROS Unobtainable Objective Physical Examination General Exam: Positive: Alert, No Acute Distress Eye Exam: Positive: Conjunctiva & lids normal ENT Exam: Positive: Atraumatic, Mucous membr. moist/pink Neck Exam: Positive: Supple Chest Exam: Positive: Clear to auscultation, Normal air movement; Negative: Rales, Rhonchi, Wheezing, Diminished Heart Exam: Positive: Rate Normal, Regular Rhythm; Negative: Murmurs Abdomen Exam: Positive: Normal bowel sounds, Soft, Other (No signs of abdomen tenderness upon palpation. No guarding) Extremity Exam: Positive: Other (No signs of calf tenderness bilaterally. Right upper extremity in sling. Moves left upper extremity and bilateral lower extremities spontaneously); Negative: Edema, Swelling Skin Exam: Positive: Nl turgor and temperature Neuro Exam: Positive: Normal Tone; Negative: Normal Speech Psych Exam: Negative: Mental status NL Assessment /Plan Assessment #Hypernatremia, improving -Serum sodium: 175 on admission; 150 today -Nephrology consulted, we appreciates nephrology team's assistance in patient care -Continue D5W, continue to follow up Na level with daily BMP. Continue to try to push oral fluids as much as possible #AUNG secondary to dehydration, resolved -Creatinine on admission 1.71; 0.91 today -GFR now>60 #UTI -Urine culture from 08/13 grew E-coli, s/p 5 days of Ceftriaxone -Recheck UA as patient had worsened mental status -Blood culture ordered. Procalcitonin ordered to r/o E-coli colonization #Anemia likely due to bone marrow hypoproliferation vs hematuria vs partially di lutional -S/p 1 unit PRBC on 08/14/2021 since patient's hemoglobin threshold is 8 due to history of CAD -Hg 7.8 this morning, ordered 1 unit of PRBC; repeat H&H 1 hour after transfusion -UA on 08/13 showed 148 RBC, recheck UA -Reticulocyte index is 0.5, indicating hypoproliferation; this may be due bone marrow abnormalities. Specimen from 08/17/2021 sent for peripheral smear order -Iron level borderline low with low TIBC. On Niferex -Ruled out B12 and folate deficiency. Ruled out hypothyroidism. Stool occult specimen is negative -Partially dilutional as patient has been receiving IV fluids #Right proximal humerus comminuted fracture -Dr. Rosa had been informed and deferred operation at this time -Medical optimization at this time; decision for surgery should be made in approximately 1 to 2 weeks -Patient can be seen in the orthopedic clinic on 08/28/[address] Rosa office clinic -Dr. Rosa would like an update when/if the patient goes to rehabilitation and the decision of whether the pt would like surgery #History of multiple falls -Multifactorial complicated by advanced age and debility -Patient also is cachectic and weak -After patient is medically optimized, consider sending home with assistance vs placement -PT/OT eval and treatment #Cachexia -Dietary consult recommended Ensure; continue Ensure supplementation -BMI of 17.8 at this time -Nutritional assessment with speech therapy eval and treatment #Hypertension -Hold home med antihypertensive medication; BP roughly stable #History of coronary artery disease -Patient is on Plavix, statin, ARB, CCB in the outpatient setting -Patient had a stent placed in 2012 according to PCP records -Continue Plavix at this time, as risks outweigh the benefits at this time. Continue Atorvastatin -Resume Losartan and amlodipine with holding parameters DVT prophylaxis: Heparin SC Disposition: Pending clinical improvement. Anticipate home with help from elderly assistance vs placement when patient is stable Plan/VTE VTE Prophylaxis Ordered?: Yes VS, I&O, 24H, Fishbone Vital Signs/I&O Vital Signs Date Time Temp Pulse Resp B/P (MAP) Pulse Ox O2 Delivery O2 Flow Rate FiO2 08/18/21 14:24 98.9 64 18 138/65 94 Room Air I&O- Last 24 Hours up to 6 AM 08/18/21 06:00 Intake Total 1320 ml Output Total 1050 ml Balance 270 ml Laboratory Data 24H LABS Laboratory Tests 2 08/18/21 07:11: Immature Granulocyte % (Auto) 0.5, Neutrophils (%) (Auto) 74.3H, Lymphocytes (%) (Auto) 15.1L, Monocytes (%) (Auto) 7.0, Eosinophils (%) (Auto) 2.8, Basophils (%) (Auto) 0.3, Neutrophils # (Auto) 4.6, Lymphocytes # (Auto) 0.9L, Monocytes # (Auto) 0.4, Eosinophils # (Auto) 0.2, Basophils # (Auto) 0.0, Nucleated Red Blood Cells % (auto) 0.0, Anion Gap 6L, Glomerular Filtration Rate > 60.0, Calcium Level 7.8L 08/18/21 10:29: Urine Color YELLOW, Urine Appearance CLOUDYH, Urine pH 5.0, Urine Specific Bud 1.017, Urine Protein 1+H, Urine Glucose (UA) NEGATIVE, Urine Ketones NEGATIVE, Urine Blood 3+H, Urine Nitrite NEGATIVE, Urine Bilirubin NEGATIVE, Urine Urobilinogen 0.2, Urine Leukocyte Esterase TRACEH, Urine WBC (Auto) 9H, Urine RBC (Auto) TNTCH, Urine Hyaline Casts (Auto) 2, Urine Bacteria (Auto) NEGATIVE, Urine Squamous Epithelial Cells 0, Urine Uric Acid Crystals (Auto) LARGE, Urine Mucus (Auto) SMALL, Urine Sperm (Auto) CBC/BMP Laboratory Tests 08/18/21 07:11 Microbiology Microbiology 08/18/21 Urine Culture, Received Pending 08/15/21 Stool Occult Blood (CHERRY) - Final, Complete 08/13/21 Urine Culture - Final, Complete Escherichia Coli GME ATTESTATION GME ATTESTATION My faculty preceptor for this patient encounter was physically present during the encounter and was fully available. All aspects of the patient interview, examination, medical decision making process, and medical care plan development were reviewed and approved by the faculty preceptor. The faculty preceptor is aware and concurs with the plan as stated in the body of this note and will attest to such by his/her cosignature. ATTENDING NOTE I, Jonathon Sanders DO, have independently examined this patient and performed my own physical exam, as well as reviewed the documentation and edited where necessary. I have discussed in detail with the resident the findings and plan of treatment as documented by the resident and edited their note. I agree with their findings and treatment plan and have edited their documentation. I will continue to follow the patient during this hospital stay. GME ATTESTATION GME ATTESTATION My faculty preceptor for this patient encounter was physically present during the encounter and was fully available. All aspects of the patient interview, examination, medical decision making process, and medical care plan development were reviewed and approved by the faculty preceptor. The faculty preceptor is aware and concurs with the plan as stated in the body of this note and will attest to such by his/her cosignature. DONIS DAVIS DO Aug 18, 2021 15:04 JONAHTON SANDERS DO Aug 18, 2021 15:59
[2021-08-18] MEDS: amLODIPine 5 MG TAB PO SCH (15:16)
[2021-08-18] MEDS ORDERED: ALBUTEROL 90 MCG/ACT 8GM HFA INHALER INH PRN (15:45)
[2021-08-18] MEDS: D5W 1,000 ML IV SCH (16:08)
[2021-08-18] MEDS: LOSARTAN 50MG TABLET PO SCH (16:15)
[2021-08-18 16:23] LABS: HEMATOCRIT 30.9 % (36.0-47.0)
[2021-08-19 06:00] VITALS: BP 144/66
[2021-08-19 08:44] LABS: BASO % 0.3 % (0.0-1.0); EOS # 0.2 10^3/uL (0.0-0.5); EOS % 2.2 % (0.0-3.0); HEMATOCRIT 29.2 % (36.0-47.0); HEMOGLOBIN 9.2 g/dl (12.0-15.5); LYMPH # 0.7 10^3/uL (1.5-5.0); LYMPH % 8.9 % (24.0-44.0); MEAN CORPUSCULAR HGB CONC 31.5 g/dl (32.0-36.5); MEAN CORPUSCULAR VOLUME 95.1 fl (80.0-96.0); MONO # 0.6 10^3/uL (0.0-0.8); MONO % 8.5 % (2.0-8.0); NEUTROPHILS # 5.9 10^3/uL (1.5-8.5); NEUTROPHILS % 79.4 % (36.0-66.0); PLATELET COUNT, AUTOMATED 149 10^3/uL (150-450); RED BLOOD COUNT 3.07 10^6/uL (4.00-5.40); WHITE BLOOD COUNT 7.4 10^3/uL (4.0-10.0)
[2021-08-19] MEDS: CLOPIDOGREL 75 MG TAB PO SCH (09:00)
[2021-08-19] MEDS: LOSARTAN 50MG TABLET PO SCH (09:00)
[2021-08-19] MEDS: amLODIPine 5 MG TAB PO SCH (09:00)
[2021-08-19] MEDS: OMEPRAZOLE 20 MG CAP PO SCH (09:00)
[2021-08-19] MEDS: DOCUSATE SODIUM 100MG CAPSULE PO SCH ×2 (09:00→20:11)
[2021-08-19] MEDS: IRON POLYSAC (NIFEREX) 150 MG CAP PO SCH (09:00)
[2021-08-19] MEDS: ATORVASTATIN 20 MG TAB PO SCH (09:00)
[2021-08-19 09:15] LABS: BLOOD UREA NITROGEN 22 MG/DL (7-18); CARBON DIOXIDE LEVEL 22 MEQ/L (21-32); CHLORIDE LEVEL 114 MEQ/L (98-107); CREATININE FOR GFR 0.86 MG/DL (0.55-1.30); GLOMERULAR FILTRATION RATE > 60.0 (>32); GLUCOSE, FASTING 96 MG/DL (70-100); SODIUM LEVEL 142 MEQ/L (136-145)
[2021-08-19] MEDS: D5W 1,000 ML IV SCH (09:35)
[2021-08-19] MEDS: HEPARIN SOD (PORCINE) 5000UNITS/ML 1ML VIAL/SYRINGE SQ SCH ×2 (09:53→20:11)
--- NOTE | 2021-08-19 13:24 | IPNPDOC ---
Text Note Date of Service The patient was seen on 08/19/21. NOTE Subjective: Patient is an 85-year-old female presented to the hospital after falling and was found to have a right humeral fracture as well as hyponatremia and severe dehydration. Patient is moving her extremities spontaneously but only opens her eyes and minimally answers questions. The HPI and review of systems is severely limited to the patient's inability to answer questions fully. Review of systems: Unable to be obtained as above Physical exam: Vitals: See below General: Alert but not oriented female patient who is laying in bed not walked in. Patient not appear to be in any acute distress. Patient was cachectic appearing with bitemporal muscle wasting HEENT: Normocephalic, atraumatic, moist mucous membranes. Neck: No lymphadenopathy or thyromegaly Cardiac: Regular rate and rhythm, no murmurs, normal S1, normal S2 Pulm: Clear to auscultation bilaterally. No wheezes, rhonchi, rales Abd: Nondistended, nontender to palpation, normal bowel sounds Ext: No edema bilateral lower extremities Labs: See below Imaging: No new imaging is been performed Assessment/plan: 85-year-old female was found to be severely dehydrated with severe hypernatremia and right humeral fracture. 1. Severe hypernatremia. Patient's sodium is now in the normal range at 142. D5 water has been stopped at this time. I appreciate Dr. Zaragoza's help treating the patient. 2. Acute kidney injury secondary to dehydration, resolved. Continue to monitor. 3. Urinary tract infection status post 5 days of ceftriaxone. 4. Anemia likely due to bone marrow hypoproliferation. Patient received a unit of blood yesterday and her hemoglobin has recovered to 10. 5. Right proximal humeral fracture. Orthopedic surgery has seen the patient and deferred operation at this time. Medical optimization at this time. Surgery can be made for approximately 1 to 2 weeks and can follow-up with the orthopedic clinic. 6. History of multiple falls. After medical optimization, patient may need placement however, patient is apparently getting home with . Will need to continue to monitor. 7. Severe protein calorie malnutrition with a BMI 17.8. Continue Ensure and attempt to feed the patient. 8. Hypertension. Hold medications as patient's blood pressure has been stable. 9. History of coronary artery disease. Continue home medications. DVT Prophylaxis: Heparin Disposition: Pending clinical improvement. VS,Fishbone, I+O VS, Fishbone, I+O Laboratory Tests 08/18/21 15:44 08/19/21 08:10 Vital Signs Date Time Temp Pulse Resp B/P (MAP) Pulse Ox O2 Delivery O2 Flow Rate FiO2 08/19/21 06:00 98.5 68 20 144/66 (92) 95 Room Air I&O- Last 24 Hours up to 6 AM 08/19/21 05:59 Intake Total 550 ml Output Total 550 ml Balance 0 ml ABEL SANDERS DO Aug 19, 2021 13:24
[2021-08-19 14:00] VITALS: BP 140/62
[2021-08-19] MEDS ORDERED: ACETAMINOPHEN 650 MG SUPP PR PRN (14:35)
[2021-08-19 22:00] VITALS: BP 139/63
--- NOTE | 2021-08-19 22:35 | IPN ---
NEPHROLOGY PROGRESS NOTE DATE: 08/19/2021 SUBJECTIVE: The patient is seen and examined this morning at the bedside. There are no acute overnight events. Her sodium level has normalized. Her oral intake remains poor. The patient is minimally responsive but does not appear to be in any overt distress. OBJECTIVE: PHYSICAL EXAMINATION: VITAL SIGNS: Temperature 98.5, pulse 68, respiratory rate 20, blood pressure 144/66, saturating 95% on room air. INTAKE AND OUTPUT: Intake is one liter. Urine output is one liter. Weight in the bed scale today is not recorded. GENERAL APPEARANCE: The patient is seen lying in bed, drowsy but easily arousable. She opens eyes. She is frail appearing and lethargic. There is cachexia, bitemporal wasting. HEENT: Dry tongue. NECK: Jugular vein is not elevated. HEART: Sounds are regular, S1, S2. LUNGS: Clear to auscultation, no crackles or rales. ABDOMEN: Soft and nontender. EXTREMITIES: No edema. No cyanosis. GENITOURINARY: She has a Castaneda catheter. LABORATORY STUDIES: White count 7.4, hemoglobin 9.2, platelet count 149, sodium 142, potassium 4.0, bicarbonate 22, BUN 22, creatinine 0.8. Blood cultures from August 18 reveal no growth for 24 hours x2 sets. INPATIENT MEDICATIONS: The patient's medications were reviewed by myself. I note that D5W has been held and remainder of medications are unchanged as compared to yesterday. PROBLEMS: 1. Hypernatremia secondary to dehydration from poor oral intake - The patient has received hypotonic fluids over the course of this admission. Her sodium level has normalized at 142 today. She is at risk for reoccurrence of her dehydration because she has poor mental status and poor oral intake. She will require assistance with feeding or tube feed. I will defer further nutritional management to the Primary Team and suggest to continue with gentle hypotonic fluid if the patient continues to have suboptimal oral intake. 2. Acute kidney injury secondary to dehydration resolved. 3. Anemia - hemoglobin has improved to 9.2. The patient has been transfused a total of 2 units of packed red blood cells on this admission. 4. Disposition Nephrology is signing off. Please re-consult if needed.
[2021-08-20 06:00] VITALS: BP 131/75
[2021-08-20 06:21] LABS: BASO % 0.3 % (0.0-1.0); EOS % 0.3 % (0.0-3.0); HEMATOCRIT 30.6 % (36.0-47.0); HEMOGLOBIN 9.6 g/dl (12.0-15.5); LYMPH # 0.5 10^3/uL (1.5-5.0); MEAN CORPUSCULAR HEMOGLOBIN 29.8 pg (27.0-33.0); MEAN CORPUSCULAR HGB CONC 31.4 g/dl (32.0-36.5); MONO # 0.7 10^3/uL (0.0-0.8); MONO % 6.1 % (2.0-8.0); NEUTROPHILS # 10.5 10^3/uL (1.5-8.5); NEUTROPHILS % 88.6 % (36.0-66.0); PLATELET COUNT, AUTOMATED 162 10^3/uL (150-450); RED BLOOD COUNT 3.22 10^6/uL (4.00-5.40); WHITE BLOOD COUNT 11.8 10^3/uL (4.0-10.0)
[2021-08-20 06:35] LABS: BLOOD UREA NITROGEN 23 MG/DL (7-18); CALCIUM LEVEL 8.1 MG/DL (8.8-10.2); CARBON DIOXIDE LEVEL 22 MEQ/L (21-32); CHLORIDE LEVEL 112 MEQ/L (98-107); CREATININE FOR GFR 0.86 MG/DL (0.55-1.30); GLOMERULAR FILTRATION RATE > 60.0 (>32); GLUCOSE, FASTING 114 MG/DL (70-100); SODIUM LEVEL 142 MEQ/L (136-145)
--- NOTE | 2021-08-20 08:19 | REP ---
INDICATION: leukocytosis, fever. COMPARISON: Portable chest, 08/12/2021. TECHNIQUE: AP portable chest image was obtained. FINDINGS: There is bibasilar airspace disease consistent with atelectasis or pneumonia. There is cardiomegaly with pulmonary venous hypertension but without congestive heart failure. There is calcific vascular disease of the thoracic aorta. The upper abdominal bowel gas pattern is normal. There is again noted a fracture of the surgical neck of the right humerus. IMPRESSION: Interval development of bibasilar atelectasis. Other findings as noted, not significantly changed. <Electronically signed by Kev Pizano > 08/20/21 [id number]
[2021-08-20] MEDS: DOCUSATE SODIUM 100MG CAPSULE PO SCH ×2 (08:59→21:00)
[2021-08-20] MEDS: ATORVASTATIN 20 MG TAB PO SCH (08:59)
[2021-08-20] MEDS: IRON POLYSAC (NIFEREX) 150 MG CAP PO SCH (08:59)
[2021-08-20] MEDS: LOSARTAN 50MG TABLET PO SCH (08:59)
[2021-08-20] MEDS: CLOPIDOGREL 75 MG TAB PO SCH (09:00)
[2021-08-20] MEDS: amLODIPine 5 MG TAB PO SCH (09:00)
[2021-08-20] MEDS: OMEPRAZOLE 20 MG CAP PO SCH (09:00)
[2021-08-20] MEDS: HEPARIN SOD (PORCINE) 5000UNITS/ML 1ML VIAL/SYRINGE SQ SCH ×2 (09:11→22:00)
--- NOTE | 2021-08-20 12:47 | IPNPDOC ---
Text Note Date of Service The patient was seen on 08/20/21. NOTE Patient is an 85-year-old, female who presented to the hospital after falling a couple times over the last 3 weeks. She presented with facial lacerations and a right humerus fracture. Her labs also indicated hyponatremia and severe dehydration. was also in the room with the patient he was able to know for me about events leading up to the falls and how she has been since being here. Says that his has been physically mentally declining since Halloween. She is no longer able to converse and ambulate unassisted. Her has to help her with activities of daily living such as bathing, eating, bathroom activities. He would like to know about rehab/PT possibilities. Review of systems limited due to patient's current status. Is concerned with wifes eating (will hold food in mouth but will not swallow it), her not being out of bed since she has been here. Physical exam General: 85-year-old, female, frail in appearance, responds to verbal and sternal stimuli, unable to respond to questioning, no acute distress Cardiac: Regular rate and rhythm, no murmurs, rubs, gallops Respiratory: CTA bilaterally Abdominal: Normoactive bowel sounds and nontender to palpation throughout, nondistended Chest x-ray [id number]:There is bibasilar airspace disease consistent with atelectasis or pneumonia. There is cardiomegaly with pulmonary venous hypertension but without congestive heart failure. There is calcific vascular disease of the thoracic aorta. The upper abdominal bowel gas pattern is normal. There is again noted a fracture of the surgical neck of the right humerus. Assessment/plan: 85-year-old female was found to be severely dehydrated with severe hypernatremia and right humeral fracture. #. Severe hypernatremia. Patient's sodium is now in the normal range at 142. I appreciate Dr. Zaragoza's help treating the patient. #. Pneumonia X-ray showing bilateral basilar airspace disease consistent with atelectasis or pneumonia. Will start Zosyn. #. Acute kidney injury secondary to dehydration Resolved and will continue to monitor. BUN appears to be at baseline. #. Urinary tract infection status post 5 days of ceftriaxone. #. Anemia likely due to bone marrow hypoproliferation. Received a unit of blood yesterday and her hemoglobin has recovered to 10. #. Right proximal humeral fracture. Orthopedic surgery has seen the patient and deferred operation at this time. Medical optimization at this time. Surgery can be made for approximately 1 to 2 weeks and can follow-up with the orthopedic clinic. #. History of multiple falls. After medical optimization, patient may need placement however, patient is apparently getting home with . Will need to continue to monitor. #. Severe protein calorie malnutrition with a BMI 17.8. Continue Ensure and attempt to feed the patient. Have discussed with that she is not getting nutrition. Advised could need feeding tube. Could also consider comfort measures only. #. Hypertension. Hold medications stable BP at this time. #. History of coronary artery disease. Continue home medications. DVT Prophylaxis: Heparin Disposition: Pending clinical improvement. Late entry: See attending note Danna FREY, I+O VSDanna I+O Laboratory Tests 08/20/21 05:58 Vital Signs Date Time Temp Pulse Resp B/P (MAP) Pulse Ox O2 Delivery O2 Flow Rate FiO2 08/20/21 06:00 98.7 81 20 131/75 (93) 96 Room Air I&O- Last 24 Hours up to 6 AM 08/20/21 05:59 Intake Total 630 ml Output Total 500 ml Balance 130 ml GME ATTESTATION GME ATTESTATION My faculty preceptor for this patient encounter was physically present during the encounter and was fully available. All aspects of the patient interview, ex amination, medical decision making process, and medical care plan development were reviewed and approved by the faculty preceptor. The faculty preceptor is aware and concurs with the plan as stated in the body of this note and will attest to such by his/her cosignature. ATTENDING NOTE I, Jonathon Leblanc DO, have independently examined this patient and performed my own physical exam, as well as reviewed the documentation and edited where necessary. I have discussed in detail with the resident the findings and plan of treatment as documented by the resident and edited their note. I agree with their findings and treatment plan and have edited their documentation. I will c ontinue to follow the patient during this hospital stay. I went and spoke with the patient's to detail the patient's condition with the patient's and begin the discussion about what the goals of care are going to be in order to get the patient home. Patient's states that the patient does have a living will but he is not sure what this states. Patient's went back home and brought the patient's living well back to bedside. I then went back with myself and Dr. Mcmanus and spoke with the patient's Chris and son Hamlet about the patient's CODE STATUS and what the goals of care are going to be. Patient is already DNR/DNI however, since the patient's mental status is not really recovered after her hyponatremia and the patient does have an underlying history of dementia, discussions were had about goals of care regarding quantity of life versus quality of life. After much discussion and answering all of the questions that Chris and Hamlet had, the decision was made to make the patient comfort measures only. I did speak with PFS to update them about the hospice consult. Patient was made comfort measures only. New MOLST form was filled out for this. 23 minutes was spent discussing advanced directives with the patient's who is the patient's healthcare proxy. Tavares Junior DO Aug 20, 2021 11:23 JONATHON LEBLANC DO Aug 20, 2021 18:33
[2021-08-20] MEDS: PIPERACILLIN/TAZOBACTAM SOD 4.5 GM in D5W MINI-BAG PLUS 50 ML IV SCH ×2 (13:38→22:00)
[2021-08-20] MEDS ORDERED: MORPHINE 2 MG/ML 1ML VIAL (J2270) IV PRN (16:50)
[2021-08-20] MEDS ORDERED: SCOPOLAMINE 1MG TRANSDERMAL PATCH TOP PRN (16:50)
[2021-08-20] MEDS ORDERED: LORazepam 1 MG TAB PO PRN (16:50)
[2021-08-20] MEDS ORDERED: MORPHINE 10MG/0.5ML ORAL CONCENTRATE SOLUTION U/D SL PRN (16:50)
[2021-08-20] MEDS ORDERED: LORazepam 2 MG/ML VIAL IV PRN (16:50)
[2021-08-20] MEDS ORDERED: ONDANSETRON 4 MG ORAL DISINTEGRATING TAB PO PRN (16:50)
[2021-08-20] MEDS ORDERED: FLEET ENEMA PR PRN (16:50)
[2021-08-20] MEDS ORDERED: BISACODYL 10 MG SUPP PR PRN (16:50)
[2021-08-20] MEDS ORDERED: ATROPINE SULFATE 1% OP SOLN 2 ML BTL SL PRN (16:50)
[2021-08-20] MEDS ORDERED: HYOSCYAMINE SULFATE 0.125 MG SUBL TABLET PO PRN (16:50)
[2021-08-21] MEDS: PIPERACILLIN/TAZOBACTAM SOD 4.5 GM in D5W MINI-BAG PLUS 50 ML IV SCH ×3 (06:14→22:00)
[2021-08-21] MEDS: DOCUSATE SODIUM 100MG CAPSULE PO SCH ×2 (08:01→21:00)
[2021-08-21] MEDS: CLOPIDOGREL 75 MG TAB PO SCH (08:02)
[2021-08-21] MEDS: OMEPRAZOLE 20 MG CAP PO SCH (08:02)
[2021-08-21] MEDS: amLODIPine 5 MG TAB PO SCH (08:02)
[2021-08-21] MEDS: ATORVASTATIN 20 MG TAB PO SCH (08:02)
[2021-08-21] MEDS: IRON POLYSAC (NIFEREX) 150 MG CAP PO SCH (08:02)
[2021-08-21] MEDS: LOSARTAN 50MG TABLET PO SCH (08:02)
[2021-08-21] MEDS: HEPARIN SOD (PORCINE) 5000UNITS/ML 1ML VIAL/SYRINGE SQ SCH ×2 (08:03→22:00)
[2021-08-22] MEDS: PIPERACILLIN/TAZOBACTAM SOD 4.5 GM in D5W MINI-BAG PLUS 50 ML IV SCH (06:06)
[2021-08-22] MEDS ORDERED: HYOS125TA PO (07:40)
[2021-08-22] MEDS ORDERED: MORP1SOL5 PO (07:40)
[2021-08-22] MEDS ORDERED: ATIV1TAB10 PO (07:40)
[2021-08-22] MEDS: CLOPIDOGREL 75 MG TAB PO SCH (09:00)
[2021-08-22] MEDS: OMEPRAZOLE 20 MG CAP PO SCH (09:00)
[2021-08-22] MEDS: ATORVASTATIN 20 MG TAB PO SCH (09:00)
[2021-08-22] MEDS: LOSARTAN 50MG TABLET PO SCH (09:00)
[2021-08-22] MEDS: HEPARIN SOD (PORCINE) 5000UNITS/ML 1ML VIAL/SYRINGE SQ SCH (09:00)
[2021-08-22] MEDS: DOCUSATE SODIUM 100MG CAPSULE PO SCH (09:00)
[2021-08-22] MEDS: IRON POLYSAC (NIFEREX) 150 MG CAP PO SCH (09:00)
[2021-08-22] MEDS: amLODIPine 5 MG TAB PO SCH (09:00)
--- NOTE | 2021-08-22 11:41 | DS.PDOC ---
Discharge Summary General Date of Admission Aug 12, 2021 at 23:26 Date of Discharge 08/22/2021 Discharge Summary PROCEDURES PERFORMED DURING STAY: [None]. ADMITTING DIAGNOSES / DISCHARGE DIAGNOSES: Severe hypernatremia Community acquired pneumonia Acute kidney injury - likely 2/2 pre-renal etiology Urinary tract infection Anemia likely due to bone marrow hyperproliferation Right proximal humeral fracture. History of multiple falls Severe protein calorie malnutrition; BMI 17.8. Hypertension CAD DVT Prophylaxis COMPLICATIONS/CHIEF COMPLAINT: Fall / Confusion / Weakness HISTORY OF PRESENT ILLNESS / HOSPITAL COURSE: Patient is an 85-year-old female with a PMHx of Dementia, HTN, DLP, GERD who presented to the ER on 08/12 after she sustained a fall at home. In the emergency room, patient was found to have a fracture of her right arm as well . As lab work that revealed significant hypernatremia and acute kidney injury. Patient was admitted to the hospital service for further evaluation and treatment. Orthopedic surgery and Nephrology were called on consultation. On 08/20 goals of care discussion was held with the patient's and ultimately decision was made to transition patient to comfort measures given poor prognosis. Patient has a terminal diagnosis of dementia and is likely the underlying reason as to why she is not consumed much and has become dehydrated, resulting in severe hypernatremia and acute kidney injury. MOLST form was updated to reflect this change. Patient was seen and examined at the bedside this morning patient appears to be comfortable without any acute complaints. She is only oriented to person, patient will be transitioned home with hospice, bridged with home with services. DISCHARGE MEDICATIONS: Please see below. ALLERGIES: Please see below. PHYSICAL EXAMINATION ON DISCHARGE: Vitals (See below) General: Lying in bed, appears comfortable, Awake / Alert, Oriented to person o nly HEENT: NC, AT CVS: +S1S2 Lungs: Fair air entry b/l, no evidence of wheezing, rales or rhonchi Abdomen: Soft, ND, NT Extremities: No evidence of edema, - Calf tenderness LABORATORY DATA: Please see below. IMAGING: CT Cervical spine 08/12: No acute findings. CXR 08/12: No evidence of acute cardiopulmonary pathology. Right humeral fracture. Other findings as noted. CT head 08/12: 1. There is efcm-za-utsspbeo diffuse cerebellar atrophy. 2. There is moderate age related parenchymal volume loss. White matter changes are demonstrated in the subcortical, centrum semiovale and periventricular white matter consistent with chronic age related small vessel ischemic changes. 3. The degree of ventricular dilatation is normal for age and/or degree of atrophy present. 4. No acute intracranial findings. Humerus XR 08/12: Comminuted fracture of the right humerus proximally as described. Maxillofacial CT 08/12: No acute findings. Shoulder CT 08/12: 1. Comminuted displaced fracture of the humeral neck with anterior displacement of the shaft relative to the humeral head. 2. Hyperdensity demonstrated in the surrounding soft tissues consistent with acute hemorrhage associated with edema. Glenohumeral joint effusion. Fluid also demonstrated in the subacromial subdeltoid bursa. CXR 08/20: Interval development of bibasilar atelectasis. Other findings as noted, not significantly changed. ACTIVITY: [As tolerated]. DISCHARGE PLAN: Follow-up with primary care provider as needed Remain compliant with treatment plan and medications Return to the ER if her pain is uncontrolled DISPOSITION: Home with Hospice / Bridge with Home services DISCHARGE CONDITION: [Stable]. TIME SPENT ON DISCHARGE: 35 minutes. Vital Signs/I&Os Vital Signs Date Time Temp Pulse Resp B/P (MAP) Pulse Ox O2 Delivery O2 Flow Rate FiO2 08/20/21 06:00 98.7 81 20 131/75 (93) 96 Room Air I&O- Last 24 Hours up to 6 AM 08/22/21 06:00 Intake Total 50 ml Output Total 800 ml Balance -750 ml Microbiology Microbiology 08/18/21 Blood Culture - Preliminary, Resulted No Growth after 72 hours. All specime... 08/18/21 Blood Culture - Preliminary, Resulted No Growth after 72 hours. All specime... 08/18/21 Urine Culture - Final, Complete 08/15/21 Stool Occult Blood (CHERRY) - Final, Complete 08/13/21 Urine Culture - Final, Complete Escherichia Coli Discharge Medications Scheduled Trazodone HCl (Trazodone HCl) 50 Mg Tablet, 50 MG PO QHS, (Reported) Scheduled PRN Hyoscyamine Sulfate (Hyoscyamine Sulfate) 0.125 Mg Tab.subl, 0.125 MG PO Q4HP PRN for TERMINAL SECRETIONS Use sublingually if unable to swallow Lorazepam (Ativan) 0.5 Mg Tablet, 0.5 MG PO Q4HP PRN for ANXIETY/AGITATION Use sublingually if unable to swallow Morphine Sulfate (Morphine Sulfate) 100 Mg/5 Ml Solution, 0.25-1 ML PO Q2H PRN for PAIN OR DYSPNEA Use sublingually if unable to swallow Allergies Coded Allergies: celecoxib (Unverified Adverse Reaction, Unknown, 03/14/20) piroxicam (Unverified Adverse Reaction, Unknown, 03/14/20) BRYN HORTON MD Aug 22, 2021 11:41
== END 2021-08-22 13:10 | disposition hospice, home (50) | DRG 640 ==
LOC: M ED 17:42 → M ED INP 23:26 → ENRESERV 08-13 00:23 → M PCU 08-13 01:35 → M MS5PR 08-18 16:34
PROVIDERS: ADMIT Family Medicine; ATTEND Internal Medicine
PROC: 30233N1 Transfusion of Nonautologous Red Blood Cells into Peripheral Vein, Percutaneous Approach (ICD-10-PCS; principal; 2021-08-14)
DX: E87.0 Hyperosmolality and hypernatremia (principal); E43 Unspecified severe protein-calorie malnutrition; J18.9 Pneumonia, unspecified organism; N17.9 Acute kidney failure, unspecified; N39.0 Urinary tract infection, site not specified; Z68.1 Body mass index [BMI] 19.9 or less, adult; S42.301A Unspecified fracture of shaft of humerus, right arm, initial encounter for closed fracture; I10 Essential (primary) hypertension; I25.10 Atherosclerotic heart disease of native coronary artery without angina pectoris; R29.6 Repeated falls; F03.90 Unspecified dementia, unspecified severity, without behavioral disturbance, psychotic disturbance, mood disturbance, and anxiety; K21.9 Gastro-esophageal reflux disease without esophagitis; Z51.5 Encounter for palliative care; W18.30XA Fall on same level, unspecified, initial encounter; Y92.009 Unspecified place in unspecified non-institutional (private) residence as the place of occurrence of the external cause; E78.5 Hyperlipidemia, unspecified; D64.9 Anemia, unspecified; Z79.899 Other long term (current) drug therapy; Z88.8 Allergy status to other drugs, medicaments and biological substances